=== PATIENT | female | born 1955 | race Caucasian/White ===

== ENCOUNTER 2016-06-13 18:05 | Inpatient (IN) | payer MEDICAID ==
[~2016-06-13] VITALS: Ht 170.2 cm; Wt 105.2 kg
[~2016-06-13 18:05] MED LIST: ASPI-231 PO; ATO40T PO; BENA10TA3 PO; BUME1TAB PO; Cholecalciferol PO; FAMO40TA49 PO; SPIR25TA89 PO; TORSEMIDE PO
[2016-06-13 18:54] LABS: Basophils # (auto) 0 uL; Basophils % (auto) 0.5 % (0.0-2.0); Eosinophils # (auto) 0.1 uL; Hematocrit 30.7 % (36.0-46.0); Hemoglobin 9.5 g/dL (12.2-16.2); Lymphocytes # (auto) 0.7 uL; Lymphocytes % (auto) 14.2 % (10.0-50.0); Mean Corpuscular Hemoglobin 30.8 pg (28.0-32.0); Mean Corpuscular Volume 99.3 fL (80.0-100.0); Mean Platelet Volume 8.3 fL (7.4-10.4); Monocytes # (auto) 0.4 uL; Monocytes % (auto) 7.1 % (0.0-12.0); Neutrophils % (auto) 77.2 % (37.0-80.0); Platelet Count (auto) 137 10^3/uL (140-450); Red Cell Distribution Width 18.2 % (11.6-16.0); White Blood Cell 5.2 10^3/uL (4.4-10.8)
[2016-06-13 20:44] LABS: Potassium 3.8 mmol/L (3.5-5.1)
[2016-06-13 20:51] LABS: Albumin 3.6 g/dL (3.4-5.0); BUN/Creatinine Ratio 16.9; Calcium 8.8 mg/dL (8.5-10.1)
[2016-06-13 20:54] LABS: Bilirubin, Total 0.9 mg/dL (0.2-1.0); Total Protein 7.9 g/dL (6.4-8.2)
[2016-06-13] MEDS ORDERED: ALBUTEROL SULF 2.5 MG/0.5ML(0.5%) NEB SOLN NEB ONE (21:15)
[2016-06-13] MEDS ORDERED: LEVOFLOXACIN 500MG 100 ML IV ONE (21:15)
[2016-06-13] MEDS ORDERED: PANTOPRAZOLE SODIUM 40 MG/10 ML VIAL IV ONE (21:15)
[2016-06-13] MEDS ORDERED: IPRATROPIUM BROM 0.5 MG/2.5ML INH SOL NEB ONE (21:15)
[2016-06-13] MEDS ORDERED: methylPREDNISolone SOD SUCC 125 MG/2 ML VL IV ONE (21:15)
[2016-06-13] MEDS ORDERED: ONDANSETRON HCL 4 MG/2 ML VIAL IV ONE (21:15)
[2016-06-13] MEDS ORDERED: FUROSEMIDE 40 MG/4 ML VIAL IV ONE (21:15)
[2016-06-13] MEDS ORDERED: MORPHINE SULFATE 4 MG/ML SYRG IM ONE (21:15)
[2016-06-13] MEDS ORDERED: MORPHINE SULFATE 4 MG/ML SYRG IV ONE (21:45)
[2016-06-13 22:25] LABS: Amylase 67 U/L (25-115)
[2016-06-13 22:34] LABS: B-Type Natriuretic Peptide 2735.79 pg/mL (0-100); Temperature: 22.5 C (20.0-25.0)
[2016-06-14] VITALS (8 sets, daily range): BP systolic 82–116; BP diastolic 42–82
[2016-06-14] MEDS ORDERED: DEXTROSE (50%) 50ML SYRG IV PRN (01:45)
[2016-06-14] MEDS ORDERED: ENOXAPARIN SOD 100 MG/1 ML SYRINGE SC ONE (01:45)
[2016-06-14] MEDS ORDERED: ONDANSETRON HCL 4 MG/2 ML VIAL IV PRN (01:45)
[2016-06-14] MEDS ORDERED: MORPHINE SULF INJ 2 MG/ML SYRINGE 1ML IV PRN (01:45)
[2016-06-14] MEDS ORDERED: NITROGLYCERIN 0.4 MG SL TAB SL PRN (01:45)
[2016-06-14] MEDS ORDERED: ALBUTEROL SULF 2.5 MG/0.5ML(0.5%) NEB SOLN NEB PRN (01:45)
[2016-06-14] MEDS ORDERED: IPRATROPIUM BROM 0.5 MG/2.5ML INH SOL NEB PRN (01:45)
[2016-06-14] MEDS ORDERED: TEMAZEPAM 15 MG CAP PO PRN (01:45)
[2016-06-14] MEDS: ACCU-CHEK COMFORT CURVE STRIP VI SCH ×3 (05:55→17:57)
[2016-06-14] MEDS ORDERED: BUMETANIDE 1 MG TAB PO SCH (06:00)
[2016-06-14] MEDS: InsuLIN REG 1unit/0.01ml Soln (100units/ml) SC SCH ×3 (06:07→17:58)
[2016-06-14] MEDS ORDERED: FUROSEMIDE INJECTION 500 MG in D5W 5% 450 ML IV SCH (08:30)
[2016-06-14] MEDS: DOBUTamine 1000MCG/ML 250 ML IV SCH ×2 (09:55→18:31)
[2016-06-14] MEDS: SPIRONOLACTONE 25 MG TAB PO SCH (09:56)
[2016-06-14] MEDS: ASPirin 81 mg TAB PO SCH (09:56)
[2016-06-14] MEDS: FAMOTIDINE 20 MG TAB PO SCH ×2 (09:57→22:45)
[2016-06-14] MEDS ORDERED: BENAZEPRIL HCL 10 MG TAB PO SCH (10:00)
[2016-06-14] MEDS ORDERED: ENOXAPARIN SOD 40 MG/0.4 ML SYRINGE SC SCH (10:00)
[2016-06-14] MEDS ORDERED: HYDROmorphone HCL 2 MG/ML VL IV PRN (11:15)
[2016-06-14 12:05] LABS: Urine RBC None Seen /hpf (0 - 4)
[2016-06-14 12:38] LABS: Urine Bilirubin Negative (Negative); Urine Blood Negative /uL (Negative); Urine Color Yellow (Yellow); Urine Glucose Normal (Normal); Urine Ketone Negative (Negative); Urine Nitrite Negative (Negative); Urine Urobilinogen Normal (Negative)
[2016-06-14 15:41] LABS: Partial Thromboplastin Time 27.5 sec (22.64-33.71)
[2016-06-14 15:53] LABS: INR 1.36 (0.9-1.15)
[2016-06-14] MEDS ORDERED: diphenhdrAMINE HCL 50 MG/1 ML VL IV ONE (16:45)
[2016-06-14] MEDS: ATORVASTATIN 20 MG TAB PO SCH (22:14)
[2016-06-14] MEDS: LEVOFLOXACIN 250MG 50 ML IV SCH (22:14)
[2016-06-15] MEDS: ACCU-CHEK COMFORT CURVE STRIP VI SCH ×4 (00:01→18:02)
[2016-06-15] MEDS: InsuLIN REG 1unit/0.01ml Soln (100units/ml) SC SCH ×4 (00:10→18:00)
[2016-06-15] MEDS: DOBUTamine 1000MCG/ML 250 ML IV SCH ×2 (04:59→13:33)
[2016-06-15 05:30] VITALS: BP 126/58
[2016-06-15 06:15] LABS: Basophils # (auto) 0 uL; DEFINITIVE VIEW TRANSMISSION; Eosinophils # (auto) 0 uL; Eosinophils % (auto) 0.1 % (0.0-7.0); Hematocrit 23.9 % (36.0-46.0); Hemoglobin 7.4 g/dL (12.2-16.2); Lymphocytes # (auto) 0.4 uL; Lymphocytes % (auto) 6.2 % (10.0-50.0); Mean Corpuscular Hemoglobin 30.7 pg (28.0-32.0); Mean Corpuscular Volume 99.1 fL (80.0-100.0); Monocytes # (auto) 0.5 uL; Monocytes % (auto) 8.5 % (0.0-12.0); Neutrophils # (auto) 4.9 uL; Neutrophils % (auto) 85.2 % (37.0-80.0); Platelet Count (auto) 117 10^3/uL (140-450); Red Cell Distribution Width 18.1 % (11.6-16.0); White Blood Cell 5.7 10^3/uL (4.4-10.8)
[2016-06-15 06:30] LABS: Albumin 3.1 g/dL (3.4-5.0); BUN/Creatinine Ratio 20.6; Bilirubin, Total 0.5 mg/dL (0.2-1.0); Calcium 8.1 mg/dL (8.5-10.1); Phosphorus 3.8 mg/dL (2.5-4.90); Potassium 4.7 mmol/L (3.5-5.1); Total Protein 6.8 g/dL (6.4-8.2)
[2016-06-15 08:00] VITALS: BP 100/45
[2016-06-15] MEDS: FAMOTIDINE 20 MG TAB PO SCH ×2 (09:22→23:20)
[2016-06-15] MEDS: FUROSEMIDE INJECTION 250 MG in D5W 5% 225 ML IV SCH (09:23)
[2016-06-15 09:30] VITALS: BP 100/45
[2016-06-15] MEDS: ASPirin 81 mg TAB PO SCH (10:00)
[2016-06-15] MEDS ORDERED: ENOXAPARIN SOD 30 MG/0.3 ML SYRINGE SC SCH (10:00)
[2016-06-15] MEDS: SPIRONOLACTONE 25 MG TAB PO SCH (10:00)
[2016-06-15 10:54] LABS: Temperature: 22.3 C (20.0-25.0)
[2016-06-15 13:00] VITALS: BP 106/61
[2016-06-15 13:18] LABS: Hepatitis B Surface Antibody Negative
[2016-06-15 14:02] LABS: Body Fluid Polymorphonuclear 10 %
[2016-06-15 16:54] VITALS: BP 89/52
[2016-06-15] MEDS ORDERED: MORPHINE SULF INJ 2 MG/ML SYRINGE 1ML IV PRN (17:45)
[2016-06-15 20:05] VITALS: BP 100/52
[2016-06-15] MEDS: LEVOFLOXACIN 250MG 50 ML IV SCH (23:12)
[2016-06-15] MEDS: ATORVASTATIN 20 MG TAB PO SCH (23:19)
[2016-06-16] VITALS (11 sets, daily range): BP systolic 88–111; BP diastolic 46–62
[2016-06-16] MEDS: InsuLIN REG 1unit/0.01ml Soln (100units/ml) SC SCH ×4 (00:30→16:39)
[2016-06-16] MEDS: ACCU-CHEK COMFORT CURVE STRIP VI SCH ×4 (00:30→16:39)
[2016-06-16] MEDS: DOBUTamine 1000MCG/ML 250 ML IV SCH ×3 (00:53→18:24)
[2016-06-16 06:35] LABS: Basophils # (auto) 0 uL; Basophils % (auto) 0.2 % (0.0-2.0); DEFINITIVE VIEW TRANSMISSION; Eosinophils # (auto) 0.1 uL; Hematocrit 23.5 % (36.0-46.0); Hemoglobin 7.2 g/dL (12.2-16.2); Lymphocytes # (auto) 0.5 uL; Lymphocytes % (auto) 13.4 % (10.0-50.0); Mean Corpuscular Hemoglobin 30.5 pg (28.0-32.0); Mean Corpuscular Hgb Conc. 30.8 g/dL (32.0-36.0); Mean Corpuscular Volume 99.2 fL (80.0-100.0); Mean Platelet Volume 7.9 fL (7.4-10.4); Monocytes # (auto) 0.3 uL; Neutrophils # (auto) 2.5 uL; Neutrophils % (auto) 73.4 % (37.0-80.0); Platelet Count (auto) 109 10^3/uL (140-450); White Blood Cell 3.5 10^3/uL (4.4-10.8)
[2016-06-16 06:55] LABS: Albumin 2.9 g/dL (3.4-5.0); BUN/Creatinine Ratio 21.1; Bilirubin, Total 0.4 mg/dL (0.2-1.0); Calcium 7.6 mg/dL (8.5-10.1); Potassium 4.7 mmol/L (3.5-5.1); Total Protein 6.1 g/dL (6.4-8.2)
[2016-06-16] MEDS: FUROSEMIDE INJECTION 250 MG in D5W 5% 225 ML IV SCH (09:16)
[2016-06-16] MEDS: SPIRONOLACTONE 25 MG TAB PO SCH (09:20)
[2016-06-16] MEDS: ASPirin 81 mg TAB PO SCH (09:20)
[2016-06-16] MEDS: FAMOTIDINE 20 MG TAB PO SCH ×2 (09:21→22:26)
[2016-06-16] MEDS: ENOXAPARIN SOD 40 MG/0.4 ML SYRINGE SC SCH (09:22)
[2016-06-16 22:12] LABS: Sjogren's Anti-SS-A Antibody <0.2 AI (0.0-0.9)
[2016-06-16] MEDS: LEVOFLOXACIN 250MG 50 ML IV SCH (22:26)
[2016-06-16] MEDS: ATORVASTATIN 20 MG TAB PO SCH (22:26)
[2016-06-17] MEDS: ACCU-CHEK COMFORT CURVE STRIP VI SCH ×3 (00:29→12:19)
[2016-06-17] MEDS: DOBUTamine 1000MCG/ML 250 ML IV SCH ×2 (00:31→12:19)
[2016-06-17 05:00] VITALS: BP 127/73
[2016-06-17] MEDS: InsuLIN REG 1unit/0.01ml Soln (100units/ml) SC SCH ×3 (06:00→12:00)
[2016-06-17 07:20] LABS: Basophils # (auto) 0 uL; Basophils % (auto) 0.1 % (0.0-2.0); DEFINITIVE VIEW TRANSMISSION; Eosinophils # (auto) 0.1 uL; Eosinophils % (auto) 3.2 % (0.0-7.0); Hematocrit 26.7 % (36.0-46.0); Hemoglobin 8.1 g/dL (12.2-16.2); Lymphocytes # (auto) 0.4 uL; Lymphocytes % (auto) 11.8 % (10.0-50.0); Mean Corpuscular Hemoglobin 29.8 pg (28.0-32.0); Mean Corpuscular Hgb Conc. 30.2 g/dL (32.0-36.0); Mean Corpuscular Volume 98.7 fL (80.0-100.0); Monocytes # (auto) 0.4 uL; Monocytes % (auto) 10.5 % (0.0-12.0); Neutrophils # (auto) 2.8 uL; Neutrophils % (auto) 74.4 % (37.0-80.0); Platelet Count (auto) 96 10^3/uL (140-450); Red Cell Distribution Width 18.1 % (11.6-16.0); White Blood Cell 3.7 10^3/uL (4.4-10.8)
[2016-06-17 08:00] VITALS: BP 120/56
[2016-06-17 08:31] LABS: Albumin 3.1 g/dL (3.4-5.0); BUN/Creatinine Ratio 19.2; Bilirubin, Total 0.5 mg/dL (0.2-1.0); Calcium 8.1 mg/dL (8.5-10.1); Potassium 4.9 mmol/L (3.5-5.1); Total Protein 6.4 g/dL (6.4-8.2)
[2016-06-17] MEDS: FUROSEMIDE INJECTION 250 MG in D5W 5% 225 ML IV SCH (08:34)
[2016-06-17] MEDS: ASPirin 81 mg TAB PO SCH (08:34)
[2016-06-17] MEDS: FAMOTIDINE 20 MG TAB PO SCH (08:34)
[2016-06-17] MEDS: SPIRONOLACTONE 25 MG TAB PO SCH (08:35)
[2016-06-17] MEDS: ENOXAPARIN SOD 40 MG/0.4 ML SYRINGE SC SCH (08:46)
[2016-06-17 10:59] VITALS: BP 120/56
[2016-06-18 06:07] LABS: Vitamin D 25-Hydroxy 12 ng/mL (.); Vitamin D-2 25-Hydroxy <1.0 ng/mL (.)
== END 2016-06-17 14:12 | disposition home or self-care (01) | DRG 194 ==
LOC: EDBD 18:05 → ER 18:09 → TELE-CENTR 18:10
PROVIDERS: ADMIT Nurse Practitioner; ATTEND Internal Medicine
PROC: 0W9G30Z Drainage of Peritoneal Cavity with Drainage Device, Percutaneous Approach (ICD-10-PCS; principal; 2016-06-15)
PROC: 30233N1 Transfusion of Nonautologous Red Blood Cells into Peripheral Vein, Percutaneous Approach (ICD-10-PCS; 2016-06-16)
DX: I13.0 Hypertensive heart and chronic kidney disease with heart failure and stage 1 through stage 4 chronic kidney disease, or unspecified chronic kidney disease (principal); N17.0 Acute kidney failure with tubular necrosis; K85.00 Idiopathic acute pancreatitis without necrosis or infection; R18.8 Other ascites; N18.4 Chronic kidney disease, stage 4 (severe); I42.0 Dilated cardiomyopathy; E11.22 Type 2 diabetes mellitus with diabetic chronic kidney disease; J44.0 Chronic obstructive pulmonary disease with (acute) lower respiratory infection; I50.43 Acute on chronic combined systolic (congestive) and diastolic (congestive) heart failure; E11.319 Type 2 diabetes mellitus with unspecified diabetic retinopathy without macular edema; G40.909 Epilepsy, unspecified, not intractable, without status epilepticus; H54.8 Legal blindness, as defined in USA; D63.8 Anemia in other chronic diseases classified elsewhere; J20.9 Acute bronchitis, unspecified; J44.1 Chronic obstructive pulmonary disease with (acute) exacerbation; K72.90 Hepatic failure, unspecified without coma; M47.9 Spondylosis, unspecified; Z82.49 Family history of ischemic heart disease and other diseases of the circulatory system; Z83.3 Family history of diabetes mellitus; Z95.0 Presence of cardiac pacemaker; Z95.810 Presence of automatic (implantable) cardiac defibrillator; Z88.5 Allergy status to narcotic agent; Z88.0 Allergy status to penicillin; Z88.2 Allergy status to sulfonamides; Z88.8 Allergy status to other drugs, medicaments and biological substances; Z91.041 Radiographic dye allergy status
CPT/HCPCS: 36415; 71010; 71250; 74176; 76775; 76942; 78582; 80053; 81001; 82150; 82306; 82570; 82607; 82728; 82746; 82962; 83516; 83540; 83550; 83615; 83690; 83735; 83880; 83970; 83986; 84100; 84156; 84300; 84484; 84550; 85025; 85379; 85610; 85730; 86225; 86235; 86704; 86706; 86708; 86803; 86850; 86900; 86901; 86920; 87040; 87205; 87340; 89051; 93005; 93306; 93970; 94640; 96365; 96375; 99291; C9113; J1815; J1956; J2405; J7060

== ENCOUNTER 2016-06-24 21:32 | Inpatient (IN) | payer MEDICAID ==
[~2016-06-24] VITALS: Ht 167.6 cm; Wt 90.9 kg
[2016-06-24 22:23] LABS: Albumin 3.7 g/dL (3.4-5.0); BUN/Creatinine Ratio 20.2; Calcium 8.9 mg/dL (8.5-10.1); Magnesium 2.2 mg/dL (1.6-2.6); Potassium 5.1 mmol/L (3.5-5.1)
[2016-06-24 22:28] LABS: Bilirubin, Total 1.1 mg/dL (0.2-1.0)
[2016-06-24 22:38] LABS: Basophils # (auto) 0 uL; Basophils % (auto) 0.2 % (0.0-2.0); Eosinophils # (auto) 0 uL; Eosinophils % (auto) 0.6 % (0.0-7.0); Hematocrit 35.6 % (36.0-46.0); Hemoglobin 10.9 g/dL (12.2-16.2); Lymphocytes # (auto) 0.6 uL; Lymphocytes % (auto) 9.1 % (10.0-50.0); Mean Corpuscular Hemoglobin 29.6 pg (28.0-32.0); Mean Corpuscular Hgb Conc. 30.6 g/dL (32.0-36.0); Mean Corpuscular Volume 96.5 fL (80.0-100.0); Mean Platelet Volume 9.3 fL (7.4-10.4); Monocytes # (auto) 0.5 uL; Monocytes % (auto) 7.4 % (0.0-12.0); Neutrophils # (auto) 5.5 uL; Neutrophils % (auto) 82.7 % (37.0-80.0); Platelet Count (auto) 141 10^3/uL (140-450); Red Cell Distribution Width 17.6 % (11.6-16.0); White Blood Cell 6.7 10^3/uL (4.4-10.8)
[2016-06-25 00:15] LABS: Partial Thromboplastin Time 26.8 sec (22.64-33.71)
[2016-06-25 00:22] LABS: INR 1.34 (0.9-1.15); Prothrombin Time 13.8 sec (9.37-12.3)
[2016-06-25 00:23] LABS: B-Type Natriuretic Peptide 4260.12 pg/mL (0-100); Temperature: 22.9 C (20.0-25.0)
[2016-06-25] MEDS ORDERED: LACTULOSE 20Gm/30ML SOLN PO PRN (01:15)
[2016-06-25] MEDS ORDERED: NITROGLYCERIN 0.4 MG SL TAB SL PRN (01:15)
[2016-06-25] MEDS ORDERED: FUROSEMIDE 20 MG/2 ML VIAL IV ONE (01:15)
[2016-06-25] MEDS ORDERED: ASPirin 81 mg TAB PO ONE (01:15)
[2016-06-25] MEDS ORDERED: PANTOPRAZOLE SODIUM 40 MG/10 ML VIAL IV ONE (01:15)
[2016-06-25] MEDS ORDERED: LEVOFLOXACIN 250MG 50 ML IV ONE (01:15)
[2016-06-25] MEDS ORDERED: DEXTROSE (50%) 50ML SYRG IV PRN (01:30)
[2016-06-25] MEDS ORDERED: ENOXAPARIN SOD 80 MG/0.8ML SYRINGE SC ONE (02:30)
[2016-06-25] MEDS: ALBUTEROL SULF 2.5 MG/0.5ML(0.5%) NEB SOLN NEB SCH ×6 (02:37→23:10)
[2016-06-25] MEDS: IPRATROPIUM BROM 0.5 MG/2.5ML INH SOL NEB SCH ×6 (02:37→23:10)
[2016-06-25] MEDS ORDERED: AZITHROMYCIN 500MG/D5W 250ML 250 ML IV SCH (03:00)
[2016-06-25] MEDS: MORPHINE SULF INJ 2 MG/ML SYRINGE 1ML IV PRN ×2 (03:12→18:01)
[2016-06-25 03:36] VITALS: BP 133/86
[2016-06-25] MEDS: ACCU-CHEK COMFORT CURVE STRIP VI SCH ×3 (06:00→18:02)
[2016-06-25] MEDS: InsuLIN REG 1unit/0.01ml Soln (100units/ml) SC SCH ×3 (06:00→18:00)
[2016-06-25] MEDS: SODIUM CHLOR 0.9% PF (SALINE LOCK) 10ML VIAL IV SCH ×3 (06:03→22:35)
[2016-06-25 07:12] LABS: Basophils # (auto) 0 uL; Basophils % (auto) 0.3 % (0.0-2.0); Eosinophils # (auto) 0 uL; Eosinophils % (auto) 0.8 % (0.0-7.0); Hemoglobin 9.6 g/dL (12.2-16.2); Lymphocytes % (auto) 17.4 % (10.0-50.0); Mean Corpuscular Hemoglobin 29.6 pg (28.0-32.0); Mean Corpuscular Hgb Conc. 31.1 g/dL (32.0-36.0); Mean Corpuscular Volume 95.2 fL (80.0-100.0); Mean Platelet Volume 9.2 fL (7.4-10.4); Monocytes # (auto) 0.5 uL; Monocytes % (auto) 8.4 % (0.0-12.0); Neutrophils # (auto) 4.2 uL; Neutrophils % (auto) 73.1 % (37.0-80.0); Platelet Count (auto) 127 10^3/uL (140-450); Red Cell Distribution Width 17.4 % (11.6-16.0); White Blood Cell 5.8 10^3/uL (4.4-10.8)
[2016-06-25 07:48] LABS: Albumin 3.3 g/dL (3.4-5.0); BUN/Creatinine Ratio 21.2; Calcium 8.6 mg/dL (8.5-10.1); Total Protein 7.3 g/dL (6.4-8.2)
[2016-06-25] MEDS: FERROUS SULFATE 325 MG TAB PO SCH ×2 (08:16→18:00)
[2016-06-25] MEDS: PANTOPRAZOLE SODIUM 40 MG/10 ML VIAL IV SCH (10:32)
[2016-06-25] MEDS: FUROSEMIDE 40 MG/4 ML VIAL IV SCH (10:32)
[2016-06-25] MEDS: ASPirin 81 mg TAB PO SCH (10:33)
[2016-06-25] MEDS: METOPROLOL TARTRATE 25 MG TAB PO SCH ×4 (10:33→22:24)
[2016-06-25] MEDS: ENALAPRIL MALEATE 10 MG TAB PO SCH (10:33)
[2016-06-25] MEDS: ENOXAPARIN SOD 80 MG/0.8ML SYRINGE SC SCH ×2 (11:34→22:24)
[2016-06-25] MEDS ORDERED: DIGOXIN 0.125 MG TAB PO ONE (14:40)
[2016-06-25 17:30] VITALS: BP 103/68
[2016-06-25] MEDS: ONDANSETRON HCL 4 MG/2 ML VIAL IV PRN (18:00)
[2016-06-25 21:58] VITALS: BP 111/60
[2016-06-25] MEDS: ATORVASTATIN 20 MG TAB PO SCH (22:23)
[2016-06-26] MEDS: ALBUTEROL SULF 2.5 MG/0.5ML(0.5%) NEB SOLN NEB SCH ×5 (02:00→22:48)
[2016-06-26] MEDS: IPRATROPIUM BROM 0.5 MG/2.5ML INH SOL NEB SCH ×5 (02:00→22:48)
[2016-06-26 05:00] VITALS: BP 93/57
[2016-06-26] MEDS: LEVOFLOXACIN 250MG 50 ML IV SCH (05:55)
[2016-06-26] MEDS: SODIUM CHLOR 0.9% PF (SALINE LOCK) 10ML VIAL IV SCH ×3 (05:56→22:00)
[2016-06-26] MEDS: InsuLIN REG 1unit/0.01ml Soln (100units/ml) SC SCH ×5 (06:00→23:42)
[2016-06-26] MEDS: ACCU-CHEK COMFORT CURVE STRIP VI SCH ×5 (06:09→23:42)
[2016-06-26 06:16] LABS: Basophils # (auto) 0 uL; Basophils % (auto) 0.7 % (0.0-2.0); Eosinophils # (auto) 0.1 uL; Eosinophils % (auto) 1.7 % (0.0-7.0); Hematocrit 29.3 % (36.0-46.0); Hemoglobin 9.4 g/dL (12.2-16.2); Lymphocytes # (auto) 0.7 uL; Lymphocytes % (auto) 17.6 % (10.0-50.0); Mean Corpuscular Volume 96.9 fL (80.0-100.0); Mean Platelet Volume 9.2 fL (7.4-10.4); Monocytes # (auto) 0.4 uL; Monocytes % (auto) 10.4 % (0.0-12.0); Neutrophils # (auto) 2.6 uL; Neutrophils % (auto) 69.6 % (37.0-80.0); Platelet Count (auto) 122 10^3/uL (140-450); Red Cell Distribution Width 16.7 % (11.6-16.0); White Blood Cell 3.8 10^3/uL (4.4-10.8)
[2016-06-26 06:27] LABS: Calcium 8.2 mg/dL (8.5-10.1); Potassium 5.2 mmol/L (3.5-5.1)
[2016-06-26 06:30] LABS: BUN/Creatinine Ratio 20.8
[2016-06-26 06:32] LABS: Bilirubin, Total 0.6 mg/dL (0.2-1.0); Total Protein 6.6 g/dL (6.4-8.2)
[2016-06-26 06:35] LABS: Cholesterol 74 mg/dL (<200); HDL Cholesterol 34 mg/dL (40-59); LDL Cholesterol 41 mg/dL (<100); Triglycerides 37 mg/dL (<150)
[2016-06-26 09:00] VITALS: BP 91/58
[2016-06-26] MEDS: ENALAPRIL MALEATE 10 MG TAB PO SCH (10:00)
[2016-06-26] MEDS ORDERED: DIGOXIN 0.125 MG TAB PO SCH (10:00)
[2016-06-26] MEDS: ENOXAPARIN SOD 80 MG/0.8ML SYRINGE SC SCH ×2 (10:00→21:53)
[2016-06-26] MEDS: FUROSEMIDE 40 MG/4 ML VIAL IV SCH (10:00)
[2016-06-26] MEDS: PANTOPRAZOLE SODIUM 40 MG/10 ML VIAL IV SCH (10:58)
[2016-06-26] MEDS: AZITHROMYCIN 500MG/D5W 250ML 250 ML IV SCH (10:59)
[2016-06-26] MEDS: ASPirin 81 mg TAB PO SCH (11:00)
[2016-06-26] MEDS: FERROUS SULFATE 325 MG TAB PO SCH ×2 (11:00→18:00)
[2016-06-26] MEDS: diphenhdrAMINE HCL 50 MG/1 ML VL IV PRN (12:28)
[2016-06-26 13:00] VITALS: BP 100/53
[2016-06-26] MEDS: ONDANSETRON HCL 4 MG/2 ML VIAL IV PRN (13:44)
[2016-06-26 17:26] VITALS: BP 128/67
[2016-06-26] MEDS: MORPHINE SULF INJ 2 MG/ML SYRINGE 1ML IV PRN (21:16)
[2016-06-26 21:35] VITALS: BP 93/54
[2016-06-26] MEDS: ATORVASTATIN 20 MG TAB PO SCH (21:53)
[2016-06-27] MEDS: MORPHINE SULF INJ 2 MG/ML SYRINGE 1ML IV PRN (02:59)
[2016-06-27 04:39] VITALS: BP 106/67
[2016-06-27] MEDS: ALBUTEROL SULF 2.5 MG/0.5ML(0.5%) NEB SOLN NEB SCH ×3 (05:55→13:45)
[2016-06-27] MEDS: IPRATROPIUM BROM 0.5 MG/2.5ML INH SOL NEB SCH ×3 (05:55→13:45)
[2016-06-27] MEDS: InsuLIN REG 1unit/0.01ml Soln (100units/ml) SC SCH ×2 (06:00→12:00)
[2016-06-27] MEDS: ACCU-CHEK COMFORT CURVE STRIP VI SCH ×2 (06:00→12:00)
[2016-06-27] MEDS: LEVOFLOXACIN 250MG 50 ML IV SCH (06:34)
[2016-06-27] MEDS: SODIUM CHLOR 0.9% PF (SALINE LOCK) 10ML VIAL IV SCH ×2 (06:34→14:00)
[2016-06-27 06:37] LABS: Basophils # (auto) 0 uL; Basophils % (auto) 0.2 % (0.0-2.0); Eosinophils # (auto) 0.1 uL; Eosinophils % (auto) 1.3 % (0.0-7.0); Hematocrit 29.5 % (36.0-46.0); Lymphocytes # (auto) 0.6 uL; Lymphocytes % (auto) 11.8 % (10.0-50.0); Mean Corpuscular Hemoglobin 29.5 pg (28.0-32.0); Mean Corpuscular Hgb Conc. 30.4 g/dL (32.0-36.0); Mean Corpuscular Volume 96.9 fL (80.0-100.0); Mean Platelet Volume 8.9 fL (7.4-10.4); Monocytes # (auto) 0.4 uL; Monocytes % (auto) 7.4 % (0.0-12.0); Neutrophils # (auto) 3.9 uL; Neutrophils % (auto) 79.3 % (37.0-80.0); Platelet Count (auto) 135 10^3/uL (140-450); Red Cell Distribution Width 17.4 % (11.6-16.0); White Blood Cell 4.9 10^3/uL (4.4-10.8)
[2016-06-27 06:59] LABS: Albumin 3.3 g/dL (3.4-5.0); BUN/Creatinine Ratio 20.7; Bilirubin, Total 0.6 mg/dL (0.2-1.0); Calcium 8.1 mg/dL (8.5-10.1); Potassium 4.7 mmol/L (3.5-5.1); Total Protein 7.2 g/dL (6.4-8.2)
[2016-06-27] MEDS: FERROUS SULFATE 325 MG TAB PO SCH (08:00)
[2016-06-27 09:00] VITALS: BP 99/61
[2016-06-27] MEDS ORDERED: METOPROLOL SUCCINATE XL 50 MG TAB PO SCH (10:00)
[2016-06-27] MEDS: ENOXAPARIN SOD 80 MG/0.8ML SYRINGE SC SCH (10:00)
[2016-06-27] MEDS: ASPirin 81 mg TAB PO SCH (10:00)
[2016-06-27] MEDS: AZITHROMYCIN 500MG/D5W 250ML 250 ML IV SCH (10:00)
[2016-06-27] MEDS: PANTOPRAZOLE SODIUM 40 MG/10 ML VIAL IV SCH (10:00)
[2016-06-27] MEDS: FUROSEMIDE 40 MG/4 ML VIAL IV SCH (10:00)
[2016-06-27] MEDS: diphenhdrAMINE HCL 50 MG/1 ML VL IV PRN (11:28)
[2016-06-27 13:00] VITALS: BP 107/65
[2016-06-27 16:54] VITALS: BP 102/55
== END 2016-06-27 18:42 | disposition home or self-care (01) | DRG 194 ==
LOC: EDSEX 21:32 → EDBD 21:32 → ER 21:39 → TELE 21:40 → TELE-E-ADS 06-25 16:36 → TELE-WESTW 06-25 17:41
PROVIDERS: ADMIT Family Medicine; ATTEND Internal Medicine
PROC: 0W9B3ZZ Drainage of Left Pleural Cavity, Percutaneous Approach (ICD-10-PCS; principal; 2016-06-25)
DX: I13.0 Hypertensive heart and chronic kidney disease with heart failure and stage 1 through stage 4 chronic kidney disease, or unspecified chronic kidney disease (principal); J18.9 Pneumonia, unspecified organism; J96.10 Chronic respiratory failure, unspecified whether with hypoxia or hypercapnia; N17.9 Acute kidney failure, unspecified; E44.0 Moderate protein-calorie malnutrition; E11.22 Type 2 diabetes mellitus with diabetic chronic kidney disease; N18.3 Chronic kidney disease, stage 3 (moderate); J90 Pleural effusion, not elsewhere classified; I50.9 Heart failure, unspecified; J44.0 Chronic obstructive pulmonary disease with (acute) lower respiratory infection; H54.8 Legal blindness, as defined in USA; D64.9 Anemia, unspecified; E78.00 Pure hypercholesterolemia, unspecified; J44.1 Chronic obstructive pulmonary disease with (acute) exacerbation; E78.5 Hyperlipidemia, unspecified; E87.5 Hyperkalemia; K76.9 Liver disease, unspecified; I25.5 Ischemic cardiomyopathy; Z88.5 Allergy status to narcotic agent; Z88.0 Allergy status to penicillin; Z88.2 Allergy status to sulfonamides; Z88.8 Allergy status to other drugs, medicaments and biological substances; Z91.048 Other nonmedicinal substance allergy status; Z86.73 Personal history of transient ischemic attack (TIA), and cerebral infarction without residual deficits; Z95.0 Presence of cardiac pacemaker; Z91.19 Patient's noncompliance with other medical treatment and regimen; Z68.32 Body mass index [BMI] 32.0-32.9, adult; Z91.041 Radiographic dye allergy status; Z79.82 Long term (current) use of aspirin
CPT/HCPCS: 36415; 51702; 71010; 71250; 76604; 76942; 80053; 80061; 82140; 82962; 83036; 83735; 83880; 84484; 85025; 85379; 85610; 85730; 87040; 93005; 93970; 94640; 96365; 96367; 96372; 96375; C9113; J2405

== ENCOUNTER 2016-08-01 17:55 | Inpatient (IN) | payer MEDICAID ==
[~2016-08-01] VITALS: Ht 170.2 cm; Wt 98.1 kg
[~2016-08-01 17:55] MED LIST changes: -Cholecalciferol PO; -FAMO40TA49 PO; -TORSEMIDE PO
[2016-08-01 19:14] LABS: Basophils # (auto) 0 uL; Basophils % (auto) 0.1 % (0.0-2.0); Eosinophils # (auto) 0.1 uL; Eosinophils % (auto) 2.1 % (0.0-7.0); Hematocrit 27.7 % (36.0-46.0); Hemoglobin 8.9 g/dL (12.2-16.2); Lymphocytes # (auto) 0.4 uL; Lymphocytes % (auto) 13.8 % (10.0-50.0); Mean Corpuscular Hemoglobin 31.1 pg (28.0-32.0); Mean Corpuscular Hgb Conc. 32.3 g/dL (32.0-36.0); Mean Corpuscular Volume 96.3 fL (80.0-100.0); Mean Platelet Volume 8.7 fL (7.4-10.4); Monocytes # (auto) 0.3 uL; Monocytes % (auto) 8.2 % (0.0-12.0); Neutrophils # (auto) 2.4 uL; Neutrophils % (auto) 75.8 % (37.0-80.0); Red Cell Distribution Width 18.6 % (11.6-16.0); White Blood Cell 3.1 10^3/uL (4.4-10.8)
[2016-08-01 19:17] LABS: Platelet Count (auto) 86 10^3/uL (140-450)
[2016-08-01 19:28] LABS: BUN/Creatinine Ratio 18.2; Potassium 4.6 mmol/L (3.5-5.1)
[2016-08-01 19:29] LABS: Albumin 3.4 g/dL (3.4-5.0); Calcium 8.1 mg/dL (8.5-10.1); Magnesium 2.3 mg/dL (1.6-2.6)
[2016-08-01 19:33] LABS: Bilirubin, Total 0.8 mg/dL (0.2-1.0); Total Protein 7.5 g/dL (6.4-8.2)
[2016-08-01 20:07] LABS: Anisocytosis Moderate; Ovalocytes FEW; Platelet Estimate Decreased
[2016-08-01] MEDS ORDERED: ALBUTEROL SULF 2.5 MG/0.5ML(0.5%) NEB SOLN NEB ONE (20:45)
[2016-08-01] MEDS ORDERED: methylPREDNISolone SOD SUCC 125 MG/2 ML VL IV ONE (20:45)
[2016-08-01] MEDS ORDERED: IPRATROPIUM BROM 0.5 MG/2.5ML INH SOL NEB ONE (20:45)
[2016-08-01 22:02] LABS: B-Type Natriuretic Peptide 1958.34 pg/mL (0-100); Temperature: 22.7 C (20.0-25.0)
[2016-08-02] MEDS ORDERED: traMADol HCL 50 MG TAB PO ONE (00:45)
[2016-08-02] MEDS ORDERED: ALBUTEROL SULF 2.5 MG/0.5ML(0.5%) NEB SOLN NEB ONE (04:15)
[2016-08-02] MEDS ORDERED: IPRATROPIUM BROM 0.5 MG/2.5ML INH SOL NEB ONE (04:15)
[2016-08-02 04:39] LABS: Urine Bilirubin Negative (Negative); Urine Blood TRACE /uL (Negative); Urine Color Yellow (Yellow); Urine Glucose Normal (Normal); Urine Ketone Negative (Negative); Urine Nitrite Negative (Negative); Urine RBC 1 /hpf (0 - 4); Urine Urobilinogen Normal (Negative); Urine pH 5.5 (5.0-8.0)
[2016-08-02] MEDS ORDERED: NITROGLYCERIN 0.4 MG SL TAB SL PRN (05:00)
[2016-08-02] MEDS ORDERED: ACETAMINOPHEN 325 MG TAB PO PRN (05:00)
[2016-08-02] MEDS ORDERED: FUROSEMIDE 20 MG/2 ML VIAL IV ONE (05:00)
[2016-08-02] MEDS ORDERED: MORPHINE SULF INJ 2 MG/ML SYRINGE 1ML IV PRN (05:00)
[2016-08-02] MEDS ORDERED: TEMAZEPAM 15 MG CAP PO PRN (05:00)
[2016-08-02] MEDS: SODIUM CHLOR 0.9% PF (SALINE LOCK) 10ML VIAL IV SCH ×3 (06:22→21:57)
[2016-08-02] MEDS ORDERED: BENA10TA3 PO (06:27)
[2016-08-02] MEDS ORDERED: ATOR40TA52 PO (06:27)
[2016-08-02] MEDS ORDERED: DIGO0.1262 PO (06:27)
[2016-08-02] MEDS ORDERED: BUME1TAB PO (06:27)
[2016-08-02] MEDS ORDERED: ASPI-231 PO (06:27)
[2016-08-02] MEDS ORDERED: SPIR25TA89 PO (06:27)
[2016-08-02] MEDS ORDERED: [UNRECOGNIZED DRUG - CODE] PO (06:27)
[2016-08-02] MEDS ORDERED: FAM20T PO (06:27)
[2016-08-02] MEDS: ZINC SULFATE 220 MG CAP PO SCH (10:32)
[2016-08-02] MEDS: FAMOTIDINE 20 MG TAB PO SCH ×2 (10:33→21:58)
[2016-08-02] MEDS: ENOXAPARIN SOD 40 MG/0.4 ML SYRINGE SC SCH (10:33)
[2016-08-02] MEDS: ONDANSETRON HCL 4 MG/2 ML VIAL IV PRN (10:33)
[2016-08-02] MEDS: ASCORBIC ACID 500 MG TAB PO SCH ×2 (10:33→21:58)
[2016-08-02] MEDS: MORPHINE SULF INJ 2 MG/ML SYRINGE 1ML IV PRN ×2 (10:33→18:34)
[2016-08-02] MEDS ORDERED: DEXTROSE (50%) 50ML SYRG IV SCH (12:15)
[2016-08-02] MEDS ORDERED: ACCU-CHEK COMFORT CURVE STRIP VI ONE (12:30)
[2016-08-02] MEDS ORDERED: InsuLIN REG 1unit/0.01ml Soln (100units/ml) SC ONE (12:30)
[2016-08-02 14:40] VITALS: BP 103/67
[2016-08-02] MEDS: ACCU-CHEK COMFORT CURVE STRIP VI SCH ×2 (16:45→21:58)
[2016-08-02] MEDS: InsuLIN REG 1unit/0.01ml Soln (100units/ml) SC SCH ×2 (16:46→21:58)
[2016-08-02 17:00] VITALS: BP 103/67
[2016-08-02] MEDS ORDERED: ACCU-CHEK COMFORT CURVE STRIP VI SCH (17:00)
[2016-08-02] MEDS: FUROSEMIDE 20 MG/2 ML VIAL IV SCH (18:00)
[2016-08-02] MEDS: POTASSIUM CHL 20 Meq TABLET PO SCH (21:58)
[2016-08-02 22:00] VITALS: BP 96/72
[2016-08-03] VITALS (7 sets, daily range): BP systolic 90–109; BP diastolic 56–68
[2016-08-03] MEDS: ONDANSETRON HCL 4 MG/2 ML VIAL IV PRN ×2 (02:08→10:24)
[2016-08-03] MEDS: FUROSEMIDE 20 MG/2 ML VIAL IV SCH ×2 (05:06→17:46)
[2016-08-03] MEDS: SODIUM CHLOR 0.9% PF (SALINE LOCK) 10ML VIAL IV SCH ×3 (05:52→21:40)
[2016-08-03 06:07] LABS: Basophils # (auto) 0 uL; DEFINITIVE VIEW TRANSMISSION; Eosinophils # (auto) 0 uL; Hematocrit 31.4 % (36.0-46.0); Hemoglobin 9.8 g/dL (12.2-16.2); Lymphocytes # (auto) 0.7 uL; Mean Corpuscular Hemoglobin 30.8 pg (28.0-32.0); Mean Corpuscular Hgb Conc. 31.2 g/dL (32.0-36.0); Mean Corpuscular Volume 98.7 fL (80.0-100.0); Mean Platelet Volume 8.8 fL (7.4-10.4); Monocytes # (auto) 0.6 uL; Monocytes % (auto) 9.5 % (0.0-12.0); Neutrophils # (auto) 5.2 uL; Neutrophils % (auto) 80.5 % (37.0-80.0); Platelet Count (auto) 142 10^3/uL (140-450); Red Cell Distribution Width 19.6 % (11.6-16.0); White Blood Cell 6.5 10^3/uL (4.4-10.8)
[2016-08-03] MEDS: ACCU-CHEK COMFORT CURVE STRIP VI SCH ×4 (06:13→21:51)
[2016-08-03] MEDS: InsuLIN REG 1unit/0.01ml Soln (100units/ml) SC SCH ×4 (06:13→21:51)
[2016-08-03 07:48] LABS: Albumin 3.8 g/dL (3.4-5.0); BUN/Creatinine Ratio 16.2; Bilirubin, Total 0.9 mg/dL (0.2-1.0); Calcium 8.8 mg/dL (8.5-10.1); Total Protein 8.2 g/dL (6.4-8.2)
[2016-08-03 08:10] LABS: Potassium 6.6 mmol/L (3.5-5.1)
[2016-08-03 08:15] LABS: Anisocytosis Moderate; Platelet Estimate Adequate
[2016-08-03] MEDS: ASCORBIC ACID 500 MG TAB PO SCH ×2 (09:31→21:40)
[2016-08-03] MEDS: ZINC SULFATE 220 MG CAP PO SCH (09:31)
[2016-08-03] MEDS: FAMOTIDINE 20 MG TAB PO SCH (09:31)
[2016-08-03] MEDS: ENOXAPARIN SOD 40 MG/0.4 ML SYRINGE SC SCH (09:31)
[2016-08-03] MEDS: POTASSIUM CHL 20 Meq TABLET PO SCH (09:32)
[2016-08-03] MEDS: MORPHINE SULF INJ 2 MG/ML SYRINGE 1ML IV PRN (10:24)
[2016-08-03 11:58] LABS: Albumin 3.6 g/dL (3.4-5.0); BUN/Creatinine Ratio 16.7; Bilirubin, Total 0.9 mg/dL (0.2-1.0); Calcium 8.6 mg/dL (8.5-10.1); Total Protein 8.1 g/dL (6.4-8.2)
[2016-08-03 12:21] LABS: Potassium 6.6 mmol/L (3.5-5.1)
[2016-08-04] MEDS: ONDANSETRON HCL 4 MG/2 ML VIAL IV PRN (00:54)
[2016-08-04 05:30] VITALS: BP 102/67
[2016-08-04] MEDS: FUROSEMIDE 20 MG/2 ML VIAL IV SCH ×2 (06:06→18:10)
[2016-08-04] MEDS: SODIUM CHLOR 0.9% PF (SALINE LOCK) 10ML VIAL IV SCH ×3 (06:06→21:38)
[2016-08-04] MEDS: ACCU-CHEK COMFORT CURVE STRIP VI SCH ×4 (06:33→21:40)
[2016-08-04] MEDS: InsuLIN REG 1unit/0.01ml Soln (100units/ml) SC SCH ×4 (06:33→21:43)
[2016-08-04 06:36] LABS: Basophils # (auto) 0 uL; Basophils % (auto) 0.3 % (0.0-2.0); DEFINITIVE VIEW TRANSMISSION; Eosinophils # (auto) 0 uL; Eosinophils % (auto) 0.5 % (0.0-7.0); Hematocrit 31.2 % (36.0-46.0); Hemoglobin 9.9 g/dL (12.2-16.2); Lymphocytes # (auto) 0.8 uL; Lymphocytes % (auto) 12.8 % (10.0-50.0); Mean Corpuscular Hgb Conc. 31.9 g/dL (32.0-36.0); Mean Corpuscular Volume 97.2 fL (80.0-100.0); Mean Platelet Volume 8.9 fL (7.4-10.4); Monocytes # (auto) 0.6 uL; Monocytes % (auto) 10.5 % (0.0-12.0); Neutrophils # (auto) 4.5 uL; Neutrophils % (auto) 75.9 % (37.0-80.0); Platelet Count (auto) 121 10^3/uL (140-450); SUSPECT VIEW TRANSMISSION; White Blood Cell 5.9 10^3/uL (4.4-10.8)
[2016-08-04 07:05] LABS: Albumin 3.4 g/dL (3.4-5.0); BUN/Creatinine Ratio 16.1; Bilirubin, Total 0.8 mg/dL (0.2-1.0); Calcium 8.3 mg/dL (8.5-10.1); Total Protein 7.6 g/dL (6.4-8.2)
[2016-08-04 07:08] LABS: Potassium 6.5 mmol/L (3.5-5.1)
[2016-08-04 07:55] VITALS: BP 106/63
[2016-08-04 08:00] VITALS: BP 102/67
[2016-08-04] MEDS: ASCORBIC ACID 500 MG TAB PO SCH ×2 (10:13→21:39)
[2016-08-04] MEDS: ENOXAPARIN SOD 40 MG/0.4 ML SYRINGE SC SCH (10:14)
[2016-08-04] MEDS: FAMOTIDINE 20 MG TAB PO SCH (10:14)
[2016-08-04] MEDS: ZINC SULFATE 220 MG CAP PO SCH (10:14)
[2016-08-04] MEDS ORDERED: SODIUM CHLORIDE 0.9% 1,000 ML IV SCH (10:30)
[2016-08-04 10:46] LABS: Anisocytosis Slight; Platelet Estimate Decreased
[2016-08-04] MEDS: SODIUM POLYSTYRENE SULF 15GM/60ML SUSP PO SCH ×2 (10:48→21:39)
[2016-08-04] MEDS: SODIUM CHLORIDE 0.9% 1,000 ML IV SCH (10:58)
[2016-08-04 11:22] LABS: Partial Thromboplastin Time 28.9 sec (22.64-33.71)
[2016-08-04 11:39] LABS: INR 1.49 (0.9-1.15); Prothrombin Time 16.1 sec (9.37-12.3)
[2016-08-04] MEDS: MORPHINE SULF INJ 2 MG/ML SYRINGE 1ML IV PRN (11:58)
[2016-08-04 16:12] VITALS: BP 113/70
[2016-08-04 20:00] VITALS: BP 110/67
[2016-08-04 22:00] VITALS: BP 110/67
[2016-08-05] VITALS (7 sets, daily range): BP systolic 102–110; BP diastolic 64–68
[2016-08-05] MEDS: ONDANSETRON HCL 4 MG/2 ML VIAL IV PRN ×2 (00:04→10:06)
[2016-08-05] MEDS: SODIUM CHLORIDE 0.9% 1,000 ML IV SCH ×2 (01:27→19:50)
[2016-08-05] MEDS: MORPHINE SULF INJ 2 MG/ML SYRINGE 1ML IV PRN ×3 (04:36→22:18)
[2016-08-05] MEDS: SODIUM CHLOR 0.9% PF (SALINE LOCK) 10ML VIAL IV SCH ×3 (06:18→22:28)
[2016-08-05] MEDS: FUROSEMIDE 20 MG/2 ML VIAL IV SCH ×2 (06:19→18:24)
[2016-08-05] MEDS: ACCU-CHEK COMFORT CURVE STRIP VI SCH ×4 (06:32→21:52)
[2016-08-05] MEDS: InsuLIN REG 1unit/0.01ml Soln (100units/ml) SC SCH ×4 (06:32→21:52)
[2016-08-05 07:05] LABS: BUN/Creatinine Ratio 15.3; Potassium 5.5 mmol/L (3.5-5.1)
[2016-08-05] MEDS: ASCORBIC ACID 500 MG TAB PO SCH ×3 (10:00→21:52)
[2016-08-05] MEDS: ZINC SULFATE 220 MG CAP PO SCH (10:06)
[2016-08-05] MEDS: FAMOTIDINE 20 MG TAB PO SCH (10:06)
[2016-08-05] MEDS: ENOXAPARIN SOD 30 MG/0.3 ML SYRINGE SC SCH (10:06)
[2016-08-05] MEDS: SODIUM BICARBONATE 50ML VIAL 50 ML in SOD CHL 0.45% 1,000 ML IV SCH ×2 (10:06→22:28)
[2016-08-06 05:00] VITALS: BP 116/64
[2016-08-06] MEDS: FUROSEMIDE 20 MG/2 ML VIAL IV SCH ×2 (06:11→19:08)
[2016-08-06] MEDS: SODIUM CHLOR 0.9% PF (SALINE LOCK) 10ML VIAL IV SCH ×3 (06:11→21:44)
[2016-08-06 06:32] LABS: Basophils # (auto) 0 uL; Basophils % (auto) 0.2 % (0.0-2.0); DEFINITIVE VIEW TRANSMISSION; Eosinophils # (auto) 0.1 uL; Eosinophils % (auto) 1.7 % (0.0-7.0); Hematocrit 32.5 % (36.0-46.0); Hemoglobin 10.2 g/dL (12.2-16.2); Lymphocytes # (auto) 0.4 uL; Lymphocytes % (auto) 8.5 % (10.0-50.0); Mean Corpuscular Hemoglobin 30.7 pg (28.0-32.0); Mean Corpuscular Hgb Conc. 31.4 g/dL (32.0-36.0); Mean Corpuscular Volume 97.7 fL (80.0-100.0); Mean Platelet Volume 8.2 fL (7.4-10.4); Monocytes # (auto) 0.3 uL; Monocytes % (auto) 6.9 % (0.0-12.0); Neutrophils # (auto) 3.5 uL; Neutrophils % (auto) 82.7 % (37.0-80.0); Platelet Count (auto) 108 10^3/uL (140-450); Red Cell Distribution Width 19.8 % (11.6-16.0); White Blood Cell 4.2 10^3/uL (4.4-10.8)
[2016-08-06] MEDS: InsuLIN REG 1unit/0.01ml Soln (100units/ml) SC SCH ×4 (06:44→21:45)
[2016-08-06] MEDS: ACCU-CHEK COMFORT CURVE STRIP VI SCH ×4 (06:44→21:45)
[2016-08-06 07:07] LABS: Albumin 3.2 g/dL (3.4-5.0); BUN/Creatinine Ratio 13.6; Bilirubin, Total 0.9 mg/dL (0.2-1.0); Phosphorus 4.9 mg/dL (2.5-4.90); Potassium 5.1 mmol/L (3.5-5.1); Total Protein 7.4 g/dL (6.4-8.2)
[2016-08-06] MEDS: SODIUM BICARBONATE 50ML VIAL 50 ML in SOD CHL 0.45% 1,000 ML IV SCH ×2 (08:03→16:30)
[2016-08-06 09:00] VITALS: BP 123/73
[2016-08-06] MEDS: ENOXAPARIN SOD 30 MG/0.3 ML SYRINGE SC SCH (10:14)
[2016-08-06] MEDS: ZINC SULFATE 220 MG CAP PO SCH (10:15)
[2016-08-06] MEDS: FAMOTIDINE 20 MG TAB PO SCH (10:15)
[2016-08-06] MEDS: diphenhdrAMINE HCL 25 MG CAP PO PRN (12:41)
[2016-08-06] MEDS: ASCORBIC ACID 500 MG TAB PO SCH ×2 (12:41→21:44)
[2016-08-06 12:55] VITALS: BP_SYST 101; BP_SYST 106; BP_DIAS 65; BP_DIAS 67
[2016-08-06 17:00] VITALS: BP 104/65
[2016-08-06 21:55] VITALS: BP 133/73
[2016-08-07] MEDS: MORPHINE SULF INJ 2 MG/ML SYRINGE 1ML IV PRN ×2 (00:34→16:01)
[2016-08-07] MEDS: diphenhdrAMINE HCL 25 MG CAP PO PRN ×2 (01:21→08:53)
[2016-08-07 04:53] VITALS: BP 119/75
[2016-08-07] MEDS: SODIUM CHLOR 0.9% PF (SALINE LOCK) 10ML VIAL IV SCH ×3 (06:17→21:17)
[2016-08-07] MEDS: FUROSEMIDE 20 MG/2 ML VIAL IV SCH (06:17)
[2016-08-07 06:18] LABS: Basophils # (auto) 0 uL; Basophils % (auto) 0.3 % (0.0-2.0); DEFINITIVE VIEW TRANSMISSION; Eosinophils # (auto) 0.1 uL; Eosinophils % (auto) 2.6 % (0.0-7.0); Hematocrit 29.9 % (36.0-46.0); Hemoglobin 9.8 g/dL (12.2-16.2); Lymphocytes # (auto) 0.5 uL; Lymphocytes % (auto) 13.5 % (10.0-50.0); Mean Corpuscular Hemoglobin 31.1 pg (28.0-32.0); Mean Corpuscular Hgb Conc. 32.8 g/dL (32.0-36.0); Mean Corpuscular Volume 94.8 fL (80.0-100.0); Monocytes # (auto) 0.4 uL; Monocytes % (auto) 9.8 % (0.0-12.0); Neutrophils # (auto) 2.9 uL; Neutrophils % (auto) 73.8 % (37.0-80.0); Platelet Count (auto) 105 10^3/uL (140-450); Red Cell Distribution Width 19.2 % (11.6-16.0); White Blood Cell 3.9 10^3/uL (4.4-10.8)
[2016-08-07] MEDS: ACCU-CHEK COMFORT CURVE STRIP VI SCH ×4 (06:22→21:18)
[2016-08-07] MEDS: InsuLIN REG 1unit/0.01ml Soln (100units/ml) SC SCH ×4 (06:22→21:18)
[2016-08-07 06:45] LABS: Albumin 3.2 g/dL (3.4-5.0); BUN/Creatinine Ratio 13.4; Bilirubin, Total 0.7 mg/dL (0.2-1.0); Calcium 7.9 mg/dL (8.5-10.1); Potassium 4.8 mmol/L (3.5-5.1); Total Protein 7.1 g/dL (6.4-8.2)
[2016-08-07] MEDS: SODIUM BICARBONATE 50ML VIAL 50 ML in SOD CHL 0.45% 1,000 ML IV SCH (06:57)
[2016-08-07] MEDS: FAMOTIDINE 20 MG TAB PO SCH (08:53)
[2016-08-07] MEDS: ZINC SULFATE 220 MG CAP PO SCH (08:53)
[2016-08-07] MEDS: ENOXAPARIN SOD 30 MG/0.3 ML SYRINGE SC SCH (08:53)
[2016-08-07] MEDS: ASCORBIC ACID 500 MG TAB PO SCH ×2 (08:53→21:17)
[2016-08-07 09:00] VITALS: BP 109/71
[2016-08-07 13:00] VITALS: BP 104/55
[2016-08-07] MEDS: hydrOXYzine HCL 10 MG TAB PO PRN ×2 (13:59→21:23)
[2016-08-07 17:00] VITALS: BP 108/68
[2016-08-07] MEDS: FUROSEMIDE 40 MG/4 ML VIAL IV SCH (17:35)
[2016-08-07] MEDS ORDERED: FUROSEMIDE 20 MG/2 ML VIAL IV SCH (18:00)
[2016-08-07 22:00] VITALS: BP 109/65
[2016-08-08] VITALS (7 sets, daily range): BP systolic 104–126; BP diastolic 64–74
[2016-08-08] MEDS: diphenhdrAMINE HCL 25 MG CAP PO PRN (04:11)
[2016-08-08] MEDS: FUROSEMIDE 40 MG/4 ML VIAL IV SCH ×2 (06:21→18:01)
[2016-08-08] MEDS: SODIUM CHLOR 0.9% PF (SALINE LOCK) 10ML VIAL IV SCH ×3 (06:21→22:01)
[2016-08-08] MEDS: InsuLIN REG 1unit/0.01ml Soln (100units/ml) SC SCH ×4 (06:22→22:00)
[2016-08-08] MEDS: ACCU-CHEK COMFORT CURVE STRIP VI SCH ×4 (06:22→22:02)
[2016-08-08 06:47] LABS: BUN/Creatinine Ratio 13.5; Calcium 7.8 mg/dL (8.5-10.1); Potassium 4.8 mmol/L (3.5-5.1)
[2016-08-08] MEDS: FAMOTIDINE 20 MG TAB PO SCH (10:02)
[2016-08-08] MEDS: ENOXAPARIN SOD 30 MG/0.3 ML SYRINGE SC SCH (10:02)
[2016-08-08] MEDS: ASCORBIC ACID 500 MG TAB PO SCH ×2 (10:02→22:01)
[2016-08-08] MEDS: ZINC SULFATE 220 MG CAP PO SCH (10:02)
[2016-08-08] MEDS: MORPHINE SULF INJ 2 MG/ML SYRINGE 1ML IV PRN ×2 (10:16→23:52)
[2016-08-08] MEDS: hydrOXYzine HCL 10 MG TAB PO PRN ×2 (10:16→19:38)
[2016-08-09 04:58] VITALS: BP 102/60
[2016-08-09 06:16] LABS: BUN/Creatinine Ratio 14.3; Calcium 7.7 mg/dL (8.5-10.1); Potassium 4.8 mmol/L (3.5-5.1)
[2016-08-09] MEDS: SODIUM CHLOR 0.9% PF (SALINE LOCK) 10ML VIAL IV SCH ×3 (06:27→22:35)
[2016-08-09] MEDS: ACCU-CHEK COMFORT CURVE STRIP VI SCH ×4 (06:27→22:36)
[2016-08-09] MEDS: FUROSEMIDE 40 MG/4 ML VIAL IV SCH ×2 (06:27→17:38)
[2016-08-09] MEDS: InsuLIN REG 1unit/0.01ml Soln (100units/ml) SC SCH ×4 (06:28→22:00)
[2016-08-09] MEDS: hydrOXYzine HCL 10 MG TAB PO PRN (07:42)
[2016-08-09] MEDS: MORPHINE SULF INJ 2 MG/ML SYRINGE 1ML IV PRN ×2 (07:42→14:32)
[2016-08-09 08:00] VITALS: BP 104/61
[2016-08-09 09:00] VITALS: BP 104/61
[2016-08-09] MEDS: ENOXAPARIN SOD 30 MG/0.3 ML SYRINGE SC SCH (09:49)
[2016-08-09] MEDS: ASCORBIC ACID 500 MG TAB PO SCH ×2 (09:49→22:35)
[2016-08-09] MEDS: FAMOTIDINE 20 MG TAB PO SCH (09:49)
[2016-08-09] MEDS: ZINC SULFATE 220 MG CAP PO SCH (09:49)
[2016-08-09 13:00] VITALS: BP 113/73
[2016-08-09] MEDS: diphenhdrAMINE HCL 25 MG CAP PO PRN (14:32)
[2016-08-09 17:00] VITALS: BP 113/73
[2016-08-09 22:00] VITALS: BP 121/70
[2016-08-10 05:00] VITALS: BP 115/66
[2016-08-10] MEDS: MORPHINE SULF INJ 2 MG/ML SYRINGE 1ML IV PRN ×4 (05:07→20:06)
[2016-08-10] MEDS: FUROSEMIDE 40 MG/4 ML VIAL IV SCH ×3 (06:00→17:42)
[2016-08-10] MEDS: SODIUM CHLOR 0.9% PF (SALINE LOCK) 10ML VIAL IV SCH ×3 (06:00→22:35)
[2016-08-10] MEDS: ACCU-CHEK COMFORT CURVE STRIP VI SCH ×4 (06:20→22:36)
[2016-08-10] MEDS: InsuLIN REG 1unit/0.01ml Soln (100units/ml) SC SCH ×4 (06:26→22:36)
[2016-08-10] MEDS: diphenhdrAMINE HCL 25 MG CAP PO PRN ×3 (07:37→17:36)
[2016-08-10 07:55] VITALS: BP 125/74
[2016-08-10 09:48] LABS: Basophils # (auto) 0 uL; Basophils % (auto) 0.2 % (0.0-2.0); DEFINITIVE VIEW TRANSMISSION; Eosinophils # (auto) 0.1 uL; Eosinophils % (auto) 1.7 % (0.0-7.0); Hematocrit 30.5 % (36.0-46.0); Lymphocytes # (auto) 0.3 uL; Lymphocytes % (auto) 7.9 % (10.0-50.0); Mean Corpuscular Hemoglobin 31.6 pg (28.0-32.0); Mean Corpuscular Hgb Conc. 32.9 g/dL (32.0-36.0); Mean Platelet Volume 7.3 fL (7.4-10.4); Monocytes # (auto) 0.4 uL; Monocytes % (auto) 9.4 % (0.0-12.0); Neutrophils # (auto) 3.4 uL; Neutrophils % (auto) 80.8 % (37.0-80.0); Platelet Count (auto) 90 10^3/uL (140-450); SUSPECT VIEW TRANSMISSION; White Blood Cell 4.2 10^3/uL (4.4-10.8)
[2016-08-10] MEDS: ENOXAPARIN SOD 30 MG/0.3 ML SYRINGE SC SCH (10:00)
[2016-08-10 10:23] LABS: Albumin 3.2 g/dL (3.4-5.0); BUN/Creatinine Ratio 14.7; Bilirubin, Total 0.6 mg/dL (0.2-1.0); Calcium 8.3 mg/dL (8.5-10.1); Potassium 4.3 mmol/L (3.5-5.1); Total Protein 7.3 g/dL (6.4-8.2)
[2016-08-10] MEDS: FAMOTIDINE 20 MG TAB PO SCH (10:29)
[2016-08-10] MEDS: ASCORBIC ACID 500 MG TAB PO SCH ×2 (10:29→22:35)
[2016-08-10] MEDS: ZINC SULFATE 220 MG CAP PO SCH (10:29)
[2016-08-10] MEDS: DOCUSATE SOD 100 MG CAP PO SCH ×2 (10:31→22:35)
[2016-08-10 12:17] LABS: Anisocytosis Slight; Platelet Estimate Decreased
[2016-08-10 13:03] VITALS: BP 128/76
[2016-08-10] MEDS: ERGOCALCIFEROL 50,000 UNIT(1.25MG) CAP PO SCH (13:08)
[2016-08-10 13:32] LABS: INR 1.18 (0.9-1.15); Prothrombin Time 12.7 sec (9.37-12.3)
[2016-08-10 16:34] VITALS: BP 122/74
[2016-08-10 18:57] LABS: Body Fluid Polymorphonuclear 54 %
[2016-08-10 22:00] VITALS: BP 90/51
[2016-08-11] MEDS: MORPHINE SULF INJ 2 MG/ML SYRINGE 1ML IV PRN ×2 (00:44→13:07)
[2016-08-11 05:00] VITALS: BP 96/63
[2016-08-11] MEDS: FUROSEMIDE 40 MG/4 ML VIAL IV SCH (06:40)
[2016-08-11] MEDS: SODIUM CHLOR 0.9% PF (SALINE LOCK) 10ML VIAL IV SCH ×3 (06:40→22:49)
[2016-08-11 06:51] LABS: BUN/Creatinine Ratio 15.1; Bilirubin, Total 0.6 mg/dL (0.2-1.0); Calcium 8.3 mg/dL (8.5-10.1); Potassium 4.8 mmol/L (3.5-5.1); Total Protein 6.7 g/dL (6.4-8.2)
[2016-08-11] MEDS: InsuLIN REG 1unit/0.01ml Soln (100units/ml) SC SCH ×4 (07:00→22:00)
[2016-08-11] MEDS: ACCU-CHEK COMFORT CURVE STRIP VI SCH ×3 (07:41→17:19)
[2016-08-11 08:00] VITALS: BP 90/53
[2016-08-11 09:00] VITALS: BP 101/52
[2016-08-11] MEDS: diphenhdrAMINE HCL 25 MG CAP PO PRN ×2 (10:00→20:03)
[2016-08-11] MEDS: FAMOTIDINE 20 MG TAB PO SCH (10:00)
[2016-08-11] MEDS: ASCORBIC ACID 500 MG TAB PO SCH ×2 (10:01→22:48)
[2016-08-11] MEDS: ENOXAPARIN SOD 30 MG/0.3 ML SYRINGE SC SCH (10:01)
[2016-08-11] MEDS: DOCUSATE SOD 100 MG CAP PO SCH ×2 (10:01→22:49)
[2016-08-11] MEDS: ZINC SULFATE 220 MG CAP PO SCH (10:10)
[2016-08-11] MEDS ORDERED: FUROSEMIDE 40 MG/4 ML VIAL IV ONE (11:30)
[2016-08-11 13:00] VITALS: BP 105/64
[2016-08-11 15:41] LABS: Partial Thromboplastin Time 25.2 sec (22.64-33.71)
[2016-08-11 16:25] LABS: INR 1.18 (0.9-1.15); Prothrombin Time 12.7 sec (9.37-12.3)
[2016-08-11 17:00] VITALS: BP 99/56
[2016-08-11] MEDS ORDERED: FUROSEMIDE 40 MG/4 ML VIAL IV SCH (18:00)
[2016-08-11 21:30] VITALS: BP 98/57
[2016-08-12 02:19] LABS: Urine Bilirubin Negative (Negative); Urine Blood TRACE /uL (Negative); Urine Color Yellow (Yellow); Urine Glucose Normal (Normal); Urine Ketone Negative (Negative); Urine Nitrite Negative (Negative); Urine RBC 4 /hpf (0 - 4); Urine Squamous Epithelial Cell FEW /hpf (<5); Urine Urobilinogen Normal (Negative)
[2016-08-12] MEDS ORDERED: LIDOCAINE 1% HCL (LOCAL ANESTH.) INJ 20ML MDV ONE (06:54)
[2016-08-12] MEDS ORDERED: LIDOCAINE W/ EPINEPHRINE 1 % INJ 30ML ONE (06:54)
[2016-08-12] MEDS ORDERED: ceFAZolin 1GM VL ONE (06:54)
[2016-08-12] MEDS ORDERED: BUPIVACAINE 0.25% INJ 50ML VIAL ONE (06:55)
[2016-08-12] MEDS ORDERED: BUPIVACAINE W/ EPINEPH 0.25% INJ 50ML MDV ONE (06:55)
[2016-08-12] MEDS ORDERED: HEPARIN SODIUM (PORCINE) 5000 UNITS/ML 1ML VIAL ONE (06:55)
[2016-08-12] MEDS ORDERED: HEPARIN 1,000 UNITS/ml 1ML VIAL ONE (06:55)
[2016-08-12] MEDS ORDERED: CLINDAMYCIN 600MG IV 50 ML IV ONE (07:20)
[2016-08-12] MEDS ORDERED: LEVOFLOXACIN 500MG 100 ML IV ONE (07:21)
[2016-08-12] MEDS ORDERED: fentaNYL CITRATE 100 MCG/2 ML VL ONE (07:22)
[2016-08-12] MEDS ORDERED: ONDANSETRON HCL 4 MG/2 ML VIAL ONE (07:22)
[2016-08-12] MEDS ORDERED: diphenhdrAMINE HCL 50 MG/1 ML VL IV ONE (07:23)
[2016-08-12] MEDS ORDERED: KETOROLAC TROMETH 60MG/2ML VIAL IM ONE (07:23)
[2016-08-12] MEDS ORDERED: DEXAMETHASONE SOD PHOS 10MG/1ML VIAL INJ ONE (07:23)
[2016-08-12] MEDS ORDERED: ONDANSETRON HCL 4 MG/2 ML VIAL IV ONE (08:30)
[2016-08-12] MEDS ORDERED: NALOXONE HCL 0.4 MG/ML VIAL IV ONE (08:30)
[2016-08-12] MEDS ORDERED: ePHEDrine SULFATE 50 MG/ML AMP IV ONE (08:30)
[2016-08-12 09:00] VITALS: BP 123/76
[2016-08-12] MEDS: DOCUSATE SOD 100 MG CAP PO SCH ×2 (10:00→22:14)
[2016-08-12] MEDS: ENOXAPARIN SOD 30 MG/0.3 ML SYRINGE SC SCH (10:00)
[2016-08-12] MEDS: FAMOTIDINE 20 MG TAB PO SCH (10:00)
[2016-08-12] MEDS: ZINC SULFATE 220 MG CAP PO SCH (10:00)
[2016-08-12] MEDS: ASCORBIC ACID 500 MG TAB PO SCH ×2 (10:00→22:12)
[2016-08-12] MEDS ORDERED: SODIUM CHL 0.9% 1000 ML BAG XX ONE (10:15)
[2016-08-12] MEDS ORDERED: EPOETIN ALFA 10,000 UNIT/1 ML VIAL IV ONE (10:15)
[2016-08-12 11:02] LABS: Basophils # (auto) 0 uL; DEFINITIVE VIEW TRANSMISSION; Eosinophils # (auto) 0 uL; Eosinophils % (auto) 0.3 % (0.0-7.0); Hematocrit 28.7 % (36.0-46.0); Hemoglobin 9.3 g/dL (12.2-16.2); Lymphocytes # (auto) 0.2 uL; Mean Corpuscular Hemoglobin 31.1 pg (28.0-32.0); Mean Corpuscular Hgb Conc. 32.3 g/dL (32.0-36.0); Mean Corpuscular Volume 96.4 fL (80.0-100.0); Mean Platelet Volume 8.2 fL (7.4-10.4); Monocytes # (auto) 0.1 uL; Monocytes % (auto) 2.9 % (0.0-12.0); Neutrophils # (auto) 4.1 uL; Neutrophils % (auto) 91.8 % (37.0-80.0); Platelet Count (auto) 75 10^3/uL (140-450); Red Cell Distribution Width 19.7 % (11.6-16.0); White Blood Cell 4.5 10^3/uL (4.4-10.8)
[2016-08-12 11:20] LABS: BUN/Creatinine Ratio 15.2; Bilirubin, Total 0.6 mg/dL (0.2-1.0); Calcium 8.4 mg/dL (8.5-10.1); Potassium 4.9 mmol/L (3.5-5.1)
[2016-08-12 11:21] LABS: Albumin 3.1 g/dL (3.4-5.0)
[2016-08-12 11:25] LABS: Anisocytosis Moderate; Ovalocytes FEW
[2016-08-12 11:26] LABS: Platelet Estimate Decreased
[2016-08-12] MEDS: ACCU-CHEK COMFORT CURVE STRIP VI SCH ×3 (11:49→22:15)
[2016-08-12] MEDS: InsuLIN REG 1unit/0.01ml Soln (100units/ml) SC SCH ×2 (11:49→17:00)
[2016-08-12] MEDS: SODIUM CHLOR 0.9% PF (SALINE LOCK) 10ML VIAL IV SCH ×2 (11:50→22:12)
[2016-08-12] MEDS ORDERED: ALBUMIN 25% 100 ML IV ONE (12:45)
[2016-08-12 13:00] VITALS: BP 121/74
[2016-08-12 16:04] LABS: INR 1.17 (0.9-1.15); Prothrombin Time 12.6 sec (9.37-12.3)
[2016-08-12] MEDS: MORPHINE SULF INJ 2 MG/ML SYRINGE 1ML IV PRN ×2 (16:26→22:14)
[2016-08-12 17:00] VITALS: BP 97/56
[2016-08-12] MEDS: diphenhdrAMINE HCL 25 MG CAP PO PRN (18:29)
[2016-08-12 20:00] VITALS: BP 111/66
[2016-08-12] MEDS: ONDANSETRON HCL 4 MG/2 ML VIAL IV PRN (20:17)
[2016-08-12 22:22] VITALS: BP 111/66
[2016-08-13 05:30] VITALS: BP 86/46
[2016-08-13] MEDS: SODIUM CHLOR 0.9% PF (SALINE LOCK) 10ML VIAL IV SCH ×3 (06:00→22:00)
[2016-08-13 07:00] LABS: Basophils # (auto) 0 uL; DEFINITIVE VIEW TRANSMISSION; Eosinophils # (auto) 0 uL; Eosinophils % (auto) 0.1 % (0.0-7.0); Hematocrit 27.8 % (36.0-46.0); Hemoglobin 8.8 g/dL (12.2-16.2); Lymphocytes # (auto) 0.3 uL; Lymphocytes % (auto) 5.7 % (10.0-50.0); Mean Corpuscular Hemoglobin 30.7 pg (28.0-32.0); Mean Corpuscular Hgb Conc. 31.6 g/dL (32.0-36.0); Mean Corpuscular Volume 97.2 fL (80.0-100.0); Mean Platelet Volume 8.2 fL (7.4-10.4); Monocytes # (auto) 0.5 uL; Monocytes % (auto) 8.3 % (0.0-12.0); Neutrophils # (auto) 4.7 uL; Neutrophils % (auto) 85.9 % (37.0-80.0); Platelet Count (auto) 92 10^3/uL (140-450); White Blood Cell 5.5 10^3/uL (4.4-10.8)
[2016-08-13] MEDS: InsuLIN REG 1unit/0.01ml Soln (100units/ml) SC SCH ×4 (07:00→22:36)
[2016-08-13] MEDS: ACCU-CHEK COMFORT CURVE STRIP VI SCH ×4 (07:00→22:36)
[2016-08-13 07:23] LABS: Red Cell Distribution Width 20.5 % (11.6-16.0)
[2016-08-13 07:43] LABS: Albumin 3.1 g/dL (3.4-5.0); Bilirubin, Total 0.5 mg/dL (0.2-1.0); Calcium 8.3 mg/dL (8.5-10.1); Potassium 4.8 mmol/L (3.5-5.1); Total Protein 7.1 g/dL (6.4-8.2)
[2016-08-13 08:00] VITALS: BP 111/71
[2016-08-13 09:00] VITALS: BP 111/71
[2016-08-13] MEDS: MORPHINE SULF INJ 2 MG/ML SYRINGE 1ML IV PRN ×2 (10:04→22:37)
[2016-08-13] MEDS: diphenhdrAMINE HCL 25 MG CAP PO PRN ×2 (10:04→22:55)
[2016-08-13] MEDS: ZINC SULFATE 220 MG CAP PO SCH (10:04)
[2016-08-13] MEDS: ENOXAPARIN SOD 30 MG/0.3 ML SYRINGE SC SCH (10:04)
[2016-08-13] MEDS: DOCUSATE SOD 100 MG CAP PO SCH ×2 (10:04→22:36)
[2016-08-13] MEDS: FAMOTIDINE 20 MG TAB PO SCH (10:04)
[2016-08-13] MEDS: ASCORBIC ACID 500 MG TAB PO SCH ×2 (10:04→22:35)
[2016-08-13 13:00] VITALS: BP 116/79
[2016-08-13 13:17] LABS: Ovalocytes FEW; Platelet Estimate Decreased
[2016-08-13 13:18] LABS: Anisocytosis Moderate; Stomatocytes Few; Tear Drop Cells FEW
[2016-08-13] MEDS ORDERED: SODIUM CHL 0.9% 1000 ML BAG XX ONE (14:45)
[2016-08-13] MEDS ORDERED: EPOETIN ALFA 10,000 UNIT/1 ML VIAL IV ONE (14:45)
[2016-08-13 17:16] VITALS: BP_SYST 101; BP_SYST 98; BP_DIAS 60; BP_DIAS 67
[2016-08-13 21:30] VITALS: BP 102/69
[2016-08-14 05:00] VITALS: BP 93/50
[2016-08-14] MEDS: SODIUM CHLOR 0.9% PF (SALINE LOCK) 10ML VIAL IV SCH ×3 (06:00→21:46)
[2016-08-14] MEDS: ACCU-CHEK COMFORT CURVE STRIP VI SCH ×4 (06:50→21:52)
[2016-08-14] MEDS: InsuLIN REG 1unit/0.01ml Soln (100units/ml) SC SCH ×4 (06:50→22:00)
[2016-08-14 07:15] LABS: Basophils # (auto) 0 uL; DEFINITIVE VIEW TRANSMISSION; Eosinophils # (auto) 0.1 uL; Eosinophils % (auto) 1.5 % (0.0-7.0); Hematocrit 26.9 % (36.0-46.0); Hemoglobin 8.8 g/dL (12.2-16.2); Lymphocytes # (auto) 0.5 uL; Lymphocytes % (auto) 7.8 % (10.0-50.0); Mean Corpuscular Hemoglobin 31.2 pg (28.0-32.0); Mean Corpuscular Hgb Conc. 32.7 g/dL (32.0-36.0); Mean Corpuscular Volume 95.4 fL (80.0-100.0); Mean Platelet Volume 8.1 fL (7.4-10.4); Monocytes # (auto) 0.6 uL; Monocytes % (auto) 10.1 % (0.0-12.0); Neutrophils # (auto) 4.7 uL; Neutrophils % (auto) 80.6 % (37.0-80.0); Platelet Count (auto) 73 10^3/uL (140-450); Red Cell Distribution Width 19.4 % (11.6-16.0); SUSPECT VIEW TRANSMISSION; White Blood Cell 5.8 10^3/uL (4.4-10.8)
[2016-08-14 07:48] LABS: Albumin 3.3 g/dL (3.4-5.0); BUN/Creatinine Ratio 15.1; Bilirubin, Total 0.5 mg/dL (0.2-1.0); Calcium 8.4 mg/dL (8.5-10.1); Potassium 4.9 mmol/L (3.5-5.1); Total Protein 7.1 g/dL (6.4-8.2)
[2016-08-14] MEDS: ALBUMIN 25% 100 ML IV SCH ×2 (08:00→09:00)
[2016-08-14 08:17] LABS: Platelet Estimate Decreased
[2016-08-14 08:18] LABS: Anisocytosis Moderate; Ovalocytes FEW
[2016-08-14 09:00] VITALS: BP 97/49
[2016-08-14] MEDS: DOCUSATE SOD 100 MG CAP PO SCH ×2 (11:04→21:47)
[2016-08-14] MEDS: ZINC SULFATE 220 MG CAP PO SCH (11:05)
[2016-08-14] MEDS: FAMOTIDINE 20 MG TAB PO SCH (11:05)
[2016-08-14] MEDS: ENOXAPARIN SOD 30 MG/0.3 ML SYRINGE SC SCH (11:05)
[2016-08-14] MEDS: ASCORBIC ACID 500 MG TAB PO SCH ×2 (11:05→21:48)
[2016-08-14 13:00] VITALS: BP 96/58
[2016-08-14] MEDS: MORPHINE SULF INJ 2 MG/ML SYRINGE 1ML IV PRN (13:57)
[2016-08-14 22:00] VITALS: BP 115/55
[2016-08-15 05:00] VITALS: BP 101/63
[2016-08-15] MEDS: SODIUM CHLOR 0.9% PF (SALINE LOCK) 10ML VIAL IV SCH ×3 (06:01→22:10)
[2016-08-15] MEDS: ACCU-CHEK COMFORT CURVE STRIP VI SCH ×4 (06:39→22:18)
[2016-08-15] MEDS: InsuLIN REG 1unit/0.01ml Soln (100units/ml) SC SCH ×4 (07:00→22:18)
[2016-08-15] MEDS: MORPHINE SULF INJ 2 MG/ML SYRINGE 1ML IV PRN ×3 (09:02→22:10)
[2016-08-15 09:18] VITALS: BP 92/68
[2016-08-15] MEDS: ZINC SULFATE 220 MG CAP PO SCH (10:56)
[2016-08-15] MEDS: FAMOTIDINE 20 MG TAB PO SCH (10:56)
[2016-08-15] MEDS: ASCORBIC ACID 500 MG TAB PO SCH ×2 (10:56→22:10)
[2016-08-15] MEDS: ENOXAPARIN SOD 30 MG/0.3 ML SYRINGE SC SCH (10:56)
[2016-08-15] MEDS: DOCUSATE SOD 100 MG CAP PO SCH ×2 (10:56→22:10)
[2016-08-15 13:00] VITALS: BP 100/70
[2016-08-15 17:00] VITALS: BP 110/80
[2016-08-15] MEDS: ONDANSETRON HCL 4 MG/2 ML VIAL IV PRN (18:16)
[2016-08-15 21:20] VITALS: BP 99/67
[2016-08-15 21:23] VITALS: BP 108/57
[2016-08-16] MEDS: MORPHINE SULF INJ 2 MG/ML SYRINGE 1ML IV PRN (03:29)
[2016-08-16 05:20] VITALS: BP 101/52
[2016-08-16] MEDS: SODIUM CHLOR 0.9% PF (SALINE LOCK) 10ML VIAL IV SCH ×3 (06:00→21:54)
[2016-08-16] MEDS: InsuLIN REG 1unit/0.01ml Soln (100units/ml) SC SCH ×4 (06:51→22:14)
[2016-08-16] MEDS: ACCU-CHEK COMFORT CURVE STRIP VI SCH ×4 (06:51→22:03)
[2016-08-16 09:00] VITALS: BP 109/86
[2016-08-16] MEDS: ENOXAPARIN SOD 30 MG/0.3 ML SYRINGE SC SCH (11:00)
[2016-08-16] MEDS: FAMOTIDINE 20 MG TAB PO SCH (11:01)
[2016-08-16] MEDS: ZINC SULFATE 220 MG CAP PO SCH (11:01)
[2016-08-16] MEDS: DOCUSATE SOD 100 MG CAP PO SCH ×2 (11:01→21:52)
[2016-08-16] MEDS: ASCORBIC ACID 500 MG TAB PO SCH ×2 (11:01→21:54)
[2016-08-16 12:42] VITALS: BP 105/60
[2016-08-16] MEDS: metroNIDAZOLE 500 MG TAB PO SCH ×2 (13:57→21:52)
[2016-08-16 17:00] VITALS: BP 82/49
[2016-08-16 21:52] VITALS: BP 98/49
[2016-08-17 04:51] VITALS: BP 103/48
[2016-08-17] MEDS: metroNIDAZOLE 500 MG TAB PO SCH ×3 (06:03→22:00)
[2016-08-17] MEDS: SODIUM CHLOR 0.9% PF (SALINE LOCK) 10ML VIAL IV SCH ×3 (06:04→22:11)
[2016-08-17] MEDS: MORPHINE SULF INJ 2 MG/ML SYRINGE 1ML IV PRN (06:12)
[2016-08-17] MEDS: ACCU-CHEK COMFORT CURVE STRIP VI SCH ×4 (06:28→22:00)
[2016-08-17] MEDS: InsuLIN REG 1unit/0.01ml Soln (100units/ml) SC SCH ×4 (06:29→22:00)
[2016-08-17 07:22] LABS: Albumin 3.2 g/dL (3.4-5.0); BUN/Creatinine Ratio 14.3; Bilirubin, Total 0.6 mg/dL (0.2-1.0); Calcium 8.8 mg/dL (8.5-10.1); Potassium 5.2 mmol/L (3.5-5.1); Total Protein 7.3 g/dL (6.4-8.2)
[2016-08-17] MEDS ORDERED: EPOETIN ALFA 10,000 UNIT/1 ML VIAL IV ONE (08:00)
[2016-08-17] MEDS ORDERED: SODIUM CHL 0.9% 1000 ML BAG XX ONE (08:00)
[2016-08-17] MEDS: ASCORBIC ACID 500 MG TAB PO SCH ×3 (09:29→22:00)
[2016-08-17] MEDS: ENOXAPARIN SOD 30 MG/0.3 ML SYRINGE SC SCH (09:29)
[2016-08-17] MEDS: DOCUSATE SOD 100 MG CAP PO SCH ×3 (09:29→22:00)
[2016-08-17] MEDS: ZINC SULFATE 220 MG CAP PO SCH (09:30)
[2016-08-17] MEDS: FAMOTIDINE 20 MG TAB PO SCH (09:30)
[2016-08-17 09:39] VITALS: BP 89/52
[2016-08-17 10:57] LABS: Basophils # (auto) 0 uL; Basophils % (auto) 0.1 % (0.0-2.0); DEFINITIVE VIEW TRANSMISSION; Eosinophils # (auto) 0.1 uL; Eosinophils % (auto) 1.2 % (0.0-7.0); Hematocrit 25.6 % (36.0-46.0); Hemoglobin 8.1 g/dL (12.2-16.2); Lymphocytes # (auto) 0.3 uL; Lymphocytes % (auto) 4.1 % (10.0-50.0); Mean Corpuscular Hgb Conc. 31.9 g/dL (32.0-36.0); Mean Corpuscular Volume 97.4 fL (80.0-100.0); Mean Platelet Volume 7.3 fL (7.4-10.4); Monocytes # (auto) 0.5 uL; Monocytes % (auto) 7.6 % (0.0-12.0); Neutrophils # (auto) 6.2 uL; Platelet Count (auto) 120 10^3/uL (140-450); White Blood Cell 7.1 10^3/uL (4.4-10.8)
[2016-08-17 11:01] LABS: Red Cell Distribution Width 20.4 % (11.6-16.0)
[2016-08-17 11:16] LABS: Platelet Estimate Decreased
[2016-08-17 11:18] LABS: Anisocytosis Moderate
[2016-08-17 12:06] VITALS: BP 98/62
[2016-08-17] MEDS: ERGOCALCIFEROL 50,000 UNIT(1.25MG) CAP PO SCH (12:26)
[2016-08-17 16:53] VITALS: BP 108/53
[2016-08-17 22:00] VITALS: BP 92/52
[2016-08-18] MEDS ORDERED: diphenhdrAMINE HCL 25 MG CAP PO ONE (05:15)
[2016-08-18] MEDS: SODIUM CHLOR 0.9% PF (SALINE LOCK) 10ML VIAL IV SCH ×2 (05:23→14:00)
[2016-08-18] MEDS: InsuLIN REG 1unit/0.01ml Soln (100units/ml) SC SCH ×2 (05:24→12:00)
[2016-08-18] MEDS: metroNIDAZOLE 500 MG TAB PO SCH (05:24)
[2016-08-18] MEDS: ACCU-CHEK COMFORT CURVE STRIP VI SCH ×2 (05:24→11:30)
[2016-08-18 05:27] VITALS: BP 93/45
[2016-08-18 08:16] VITALS: BP 114/64
[2016-08-18 08:59] VITALS: BP 93/48
[2016-08-18] MEDS: ASCORBIC ACID 500 MG TAB PO SCH (09:51)
[2016-08-18] MEDS: ZINC SULFATE 220 MG CAP PO SCH (09:51)
[2016-08-18] MEDS: FAMOTIDINE 20 MG TAB PO SCH (09:51)
[2016-08-18] MEDS: ENOXAPARIN SOD 30 MG/0.3 ML SYRINGE SC SCH (09:52)
[2016-08-18] MEDS: DOCUSATE SOD 100 MG CAP PO SCH (09:52)
[2016-08-18] MEDS ORDERED: ACETAMINOPHEN 325 MG TAB PO PRN (12:00)
[2016-08-18 13:16] VITALS: BP 100/53
[2016-08-18 15:10] VITALS: BP 114/64
== END 2016-08-18 15:10 | disposition home or self-care (01) | DRG 194 ==
LOC: EDBD 17:55 → ER 18:24 → TELE 18:25 → TELE-EAST 08-02 14:40 → EAST 08-12 14:49 → UNDODISIN 08-17 19:00
PROVIDERS: ADMIT Emergency Medicine; ATTEND Internal Medicine
PROC: 0W9B3ZZ Drainage of Left Pleural Cavity, Percutaneous Approach (ICD-10-PCS; principal; 2016-08-10)
PROC: 06HC33Z Insertion of Infusion Device into Right Common Iliac Vein, Percutaneous Approach (ICD-10-PCS; 2016-08-12)
PROC: 5A1D60Z (ICD-10-PCS; 2016-08-14)
DX: I13.2 Hypertensive heart and chronic kidney disease with heart failure and with stage 5 chronic kidney disease, or end stage renal disease (principal); J96.20 Acute and chronic respiratory failure, unspecified whether with hypoxia or hypercapnia; N17.0 Acute kidney failure with tubular necrosis; J18.9 Pneumonia, unspecified organism; R18.8 Other ascites; A04.7 Enterocolitis due to Clostridium difficile; I42.0 Dilated cardiomyopathy; N18.6 End stage renal disease; J44.0 Chronic obstructive pulmonary disease with (acute) lower respiratory infection; E11.21 Type 2 diabetes mellitus with diabetic nephropathy; I50.43 Acute on chronic combined systolic (congestive) and diastolic (congestive) heart failure; H54.8 Legal blindness, as defined in USA; G40.909 Epilepsy, unspecified, not intractable, without status epilepticus; E55.9 Vitamin D deficiency, unspecified; D50.0 Iron deficiency anemia secondary to blood loss (chronic); E04.9 Nontoxic goiter, unspecified; E11.22 Type 2 diabetes mellitus with diabetic chronic kidney disease; E44.0 Moderate protein-calorie malnutrition; E78.5 Hyperlipidemia, unspecified; D63.1 Anemia in chronic kidney disease; E87.5 Hyperkalemia; Z51.5 Encounter for palliative care; Z91.19 Patient's noncompliance with other medical treatment and regimen; Z99.2 Dependence on renal dialysis; Z82.1 Family history of blindness and visual loss; Z82.49 Family history of ischemic heart disease and other diseases of the circulatory system; Z83.3 Family history of diabetes mellitus; Z88.5 Allergy status to narcotic agent; Z88.0 Allergy status to penicillin; Z88.2 Allergy status to sulfonamides; Z88.6 Allergy status to analgesic agent; Z91.041 Radiographic dye allergy status; Z95.0 Presence of cardiac pacemaker; Z87.891 Personal history of nicotine dependence; Z99.81 Dependence on supplemental oxygen; Z68.33 Body mass index [BMI] 33.0-33.9, adult
CPT/HCPCS: 36415; 36600; 51702; 71010; 71020; 71250; 74176; 76604; 76775; 76942; 80048; 80053; 81001; 82306; 82390; 82570; 82805; 82962; 83540; 83550; 83735; 83880; 83970; 84100; 84156; 84300; 84484; 85025; 85610; 85730; 86803; 87040; 87081; 87205; 87340; 87493; 89051; 90935; 93005; 94640; 94761; 96372; 96374; 96375; 97001; J0690; J0885; J1100; J1642; J1815; J1885; J1956; J2001; J2405; J3490

== ENCOUNTER 2016-08-29 18:23 | Inpatient (IN) | payer MEDICAID ==
[~2016-08-29] VITALS: Ht 172.7 cm; Wt 99.4 kg
[~2016-08-29 18:23] MED LIST changes: +DIGO0.1262 PO; +FAM20T PO; +[UNRECOGNIZED DRUG - CODE] PO
[2016-08-29] MEDS ORDERED: MORPHINE SULF INJ 2 MG/ML SYRINGE 1ML IV ONE (19:15)
[2016-08-29] MEDS ORDERED: ASPirin 81 mg TAB PO ONE (19:15)
[2016-08-29] MEDS ORDERED: ONDANSETRON HCL 4 MG/2 ML VIAL IV ONE (19:15)
[2016-08-29] MEDS ORDERED: NITROGLYCERIN 0.4 MG SL TAB SL ONE (19:15)
[2016-08-29 19:49] LABS: Basophils # (auto) 0 uL; DEFINITIVE VIEW TRANSMISSION; Eosinophils # (auto) 0.1 uL; Lymphocytes # (auto) 0.4 uL; Lymphocytes % (auto) 8.8 % (10.0-50.0); Monocytes # (auto) 0.4 uL
[2016-08-29 19:57] LABS: Basophils % (auto) 0.4 % (0.0-2.0); Eosinophils % (auto) 1.4 % (0.0-7.0); Hematocrit 22.2 % (36.0-46.0); Mean Corpuscular Hemoglobin 31.4 pg (28.0-32.0); Mean Corpuscular Hgb Conc. 31.4 g/dL (32.0-36.0); Monocytes % (auto) 8.2 % (0.0-12.0); Neutrophils # (auto) 4.1 uL; Neutrophils % (auto) 81.2 % (37.0-80.0); Platelet Count (auto) 137 10^3/uL (140-450); White Blood Cell 5.1 10^3/uL (4.4-10.8)
[2016-08-29 20:12] LABS: INR 1.13 (0.9-1.15); Prothrombin Time 12.2 sec (9.37-12.3)
[2016-08-29 20:25] LABS: Albumin 2.9 g/dL (3.4-5.0); BUN/Creatinine Ratio 5.7; Bilirubin, Total 0.7 mg/dL (0.2-1.0); Calcium 7.5 mg/dL (8.5-10.1); Magnesium 2.2 mg/dL (1.6-2.6); Total Protein 6.9 g/dL (6.4-8.2)
[2016-08-29] MEDS ORDERED: SODIUM CHLORIDE 0.9% 250 ML IV ONE (20:30)
[2016-08-29 21:04] LABS: Anisocytosis Moderate; Ovalocytes FEW; Platelet Estimate Decreased; Stomatocytes Few
[2016-08-30] VITALS (14 sets, daily range): BP systolic 80–106; BP diastolic 46–60
[2016-08-30] MEDS ORDERED: MORPHINE SULF INJ 2 MG/ML SYRINGE 1ML IV PRN (01:00)
[2016-08-30] MEDS ORDERED: TEMAZEPAM 15 MG CAP PO PRN (01:00)
[2016-08-30] MEDS ORDERED: DEXTROSE (50%) 50ML SYRG IV PRN (01:00)
[2016-08-30] MEDS: POTASSIUM CHL 20MEQ/100ML 100 ML IV SCH ×2 (01:00→04:19)
[2016-08-30] MEDS ORDERED: NITROGLYCERIN 0.4 MG SL TAB SL PRN (01:00)
[2016-08-30] MEDS: ACETAMINOPHEN 325 MG TAB PO PRN ×2 (04:36→20:47)
[2016-08-30] MEDS: ACCU-CHEK COMFORT CURVE STRIP VI SCH ×4 (05:59→23:57)
[2016-08-30] MEDS: InsuLIN REG 1unit/0.01ml Soln (100units/ml) SC SCH ×4 (05:59→23:57)
[2016-08-30] MEDS: FAMOTIDINE 20 MG TAB PO SCH ×3 (09:24→20:46)
[2016-08-30] MEDS: DIGOXIN 0.125 MG TAB PO SCH ×2 (09:27→09:54)
[2016-08-30] MEDS: BENAZEPRIL HCL 10 MG TAB PO SCH ×2 (09:27→09:43)
[2016-08-30] MEDS: SPIRONOLACTONE 25 MG TAB PO SCH ×2 (09:28→09:42)
[2016-08-30] MEDS: BUMETANIDE 1 MG TAB PO SCH ×2 (09:29→09:42)
[2016-08-30] MEDS: ENOXAPARIN SOD 30 MG/0.3 ML SYRINGE SC SCH (09:29)
[2016-08-30] MEDS: ONDANSETRON HCL 4 MG/2 ML VIAL IV PRN (14:11)
[2016-08-30 15:59] LABS: Hematocrit 23.2 % (36.0-46.0); Hemoglobin 7.4 g/dL (12.2-16.2)
[2016-08-30] MEDS: ATORVASTATIN 20 MG TAB PO SCH (20:46)
[2016-08-31] VITALS (7 sets, daily range): BP systolic 92–104; BP diastolic 51–66
[2016-08-31] MEDS ORDERED: diphenhdrAMINE HCL 25 MG CAP PO ONE (01:15)
[2016-08-31] MEDS: ACCU-CHEK COMFORT CURVE STRIP VI SCH ×3 (05:42→17:50)
[2016-08-31] MEDS: InsuLIN REG 1unit/0.01ml Soln (100units/ml) SC SCH ×3 (05:43→17:57)
[2016-08-31 05:53] LABS: Basophils # (auto) 0 uL; Basophils % (auto) 0.2 % (0.0-2.0); DEFINITIVE VIEW TRANSMISSION; Eosinophils # (auto) 0.1 uL; Eosinophils % (auto) 1.1 % (0.0-7.0); Hematocrit 25.8 % (36.0-46.0); Hemoglobin 8.1 g/dL (12.2-16.2); Lymphocytes # (auto) 0.7 uL; Lymphocytes % (auto) 15.3 % (10.0-50.0); Mean Corpuscular Hemoglobin 30.3 pg (28.0-32.0); Mean Corpuscular Hgb Conc. 31.4 g/dL (32.0-36.0); Mean Corpuscular Volume 96.6 fL (80.0-100.0); Mean Platelet Volume 7.4 fL (7.4-10.4); Monocytes # (auto) 0.5 uL; Monocytes % (auto) 10.6 % (0.0-12.0); Neutrophils # (auto) 3.5 uL; Neutrophils % (auto) 72.8 % (37.0-80.0); Platelet Count (auto) 123 10^3/uL (140-450); SUSPECT VIEW TRANSMISSION; White Blood Cell 4.8 10^3/uL (4.4-10.8)
[2016-08-31 06:15] LABS: Red Cell Distribution Width 25.2 % (11.6-16.0)
[2016-08-31 06:22] LABS: Albumin 2.9 g/dL (3.4-5.0); BUN/Creatinine Ratio 7.2; Bilirubin, Total 0.8 mg/dL (0.2-1.0); Calcium 7.9 mg/dL (8.5-10.1); Potassium 4.1 mmol/L (3.5-5.1); Total Protein 6.6 g/dL (6.4-8.2)
[2016-08-31 06:49] LABS: Anisocytosis Moderate; Basophilic Stippling FEW; Platelet Estimate Decreased
[2016-08-31] MEDS: BENAZEPRIL HCL 10 MG TAB PO SCH (10:00)
[2016-08-31] MEDS: FAMOTIDINE 20 MG TAB PO SCH ×2 (10:35→21:42)
[2016-08-31] MEDS: HYDROcodone-ACET 5/325MG TAB PO PRN ×2 (10:35→17:50)
[2016-08-31] MEDS: DIGOXIN 0.125 MG TAB PO SCH (10:37)
[2016-08-31] MEDS: SPIRONOLACTONE 25 MG TAB PO SCH (10:37)
[2016-08-31] MEDS: BUMETANIDE 1 MG TAB PO SCH (10:37)
[2016-08-31] MEDS: ENOXAPARIN SOD 30 MG/0.3 ML SYRINGE SC SCH (10:38)
[2016-08-31] MEDS: ONDANSETRON HCL 4 MG/2 ML VIAL IV PRN ×2 (10:38→17:50)
[2016-08-31] MEDS: ATORVASTATIN 20 MG TAB PO SCH (21:42)
[2016-09-01] VITALS (7 sets, daily range): BP systolic 81–125; BP diastolic 41–82
[2016-09-01] MEDS: InsuLIN REG 1unit/0.01ml Soln (100units/ml) SC SCH ×4 (06:00→18:00)
[2016-09-01] MEDS: ACCU-CHEK COMFORT CURVE STRIP VI SCH ×4 (06:18→18:00)
[2016-09-01 06:38] LABS: Basophils # (auto) 0 uL; Basophils % (auto) 0.2 % (0.0-2.0); DEFINITIVE VIEW TRANSMISSION; Eosinophils # (auto) 0 uL; Hematocrit 25.9 % (36.0-46.0); Hemoglobin 8.2 g/dL (12.2-16.2); Lymphocytes # (auto) 0.6 uL; Lymphocytes % (auto) 14.5 % (10.0-50.0); Mean Corpuscular Hemoglobin 30.6 pg (28.0-32.0); Mean Corpuscular Hgb Conc. 31.5 g/dL (32.0-36.0); Mean Corpuscular Volume 97.1 fL (80.0-100.0); Mean Platelet Volume 7.6 fL (7.4-10.4); Monocytes # (auto) 0.4 uL; Monocytes % (auto) 10.2 % (0.0-12.0); Neutrophils # (auto) 3.1 uL; Neutrophils % (auto) 74.1 % (37.0-80.0); Platelet Count (auto) 120 10^3/uL (140-450); White Blood Cell 4.2 10^3/uL (4.4-10.8)
[2016-09-01 06:41] LABS: Red Cell Distribution Width 24.8 % (11.6-16.0)
[2016-09-01 06:52] LABS: Potassium 4.4 mmol/L (3.5-5.1)
[2016-09-01 06:54] LABS: Anisocytosis Moderate; Basophilic Stippling FEW; Macrocytosis Slight
[2016-09-01 06:55] LABS: Polychromasia Slight
[2016-09-01 06:59] LABS: Albumin 2.8 g/dL (3.4-5.0); BUN/Creatinine Ratio 7.1
[2016-09-01 07:01] LABS: Bilirubin, Total 0.6 mg/dL (0.2-1.0); Total Protein 6.5 g/dL (6.4-8.2)
[2016-09-01 07:09] LABS: Platelet Estimate Decreased
[2016-09-01] MEDS ORDERED: EPOETIN ALFA 10,000 UNIT/1 ML VIAL IV ONE (08:00)
[2016-09-01] MEDS ORDERED: SODIUM CHL 0.9% 1000 ML BAG XX ONE (08:00)
[2016-09-01] MEDS: ENOXAPARIN SOD 30 MG/0.3 ML SYRINGE SC SCH (09:52)
[2016-09-01] MEDS: BUMETANIDE 1 MG TAB PO SCH (09:53)
[2016-09-01] MEDS: SPIRONOLACTONE 25 MG TAB PO SCH (09:54)
[2016-09-01] MEDS: BENAZEPRIL HCL 10 MG TAB PO SCH (09:59)
[2016-09-01] MEDS: FAMOTIDINE 20 MG TAB PO SCH (10:00)
[2016-09-01] MEDS: DIGOXIN 0.125 MG TAB PO SCH (10:00)
[2016-09-01] MEDS: HYDROcodone-ACET 5/325MG TAB PO PRN (10:13)
== END 2016-09-01 19:57 | disposition home or self-care (01) | DRG 198 ==
LOC: EDUNIT# 18:23 → EDBD 18:23 → ER 18:37 → TELE 18:38 → TELE-CENTR 08-30 03:37
PROVIDERS: ADMIT Nurse Practitioner; ATTEND Internal Medicine
PROC: 30233N1 Transfusion of Nonautologous Red Blood Cells into Peripheral Vein, Percutaneous Approach (ICD-10-PCS; principal; 2016-08-30)
DX: R07.9 Chest pain, unspecified (principal); I25.10 Atherosclerotic heart disease of native coronary artery without angina pectoris; I13.2 Hypertensive heart and chronic kidney disease with heart failure and with stage 5 chronic kidney disease, or end stage renal disease; E44.0 Moderate protein-calorie malnutrition; E11.21 Type 2 diabetes mellitus with diabetic nephropathy; N18.6 End stage renal disease; I50.9 Heart failure, unspecified; D63.8 Anemia in other chronic diseases classified elsewhere; J44.9 Chronic obstructive pulmonary disease, unspecified; G40.909 Epilepsy, unspecified, not intractable, without status epilepticus; H54.8 Legal blindness, as defined in USA; E11.22 Type 2 diabetes mellitus with diabetic chronic kidney disease; Z95.0 Presence of cardiac pacemaker; Z99.81 Dependence on supplemental oxygen; Z99.2 Dependence on renal dialysis; Z88.5 Allergy status to narcotic agent; Z88.0 Allergy status to penicillin; Z88.2 Allergy status to sulfonamides; Z91.041 Radiographic dye allergy status; Z68.33 Body mass index [BMI] 33.0-33.9, adult
CPT/HCPCS: 36415; 71010; 80053; 80162; 82962; 83735; 84484; 85014; 85018; 85025; 85610; 86850; 86900; 86901; 86920; 87081; 90935; 93005; 94761; J0885; J1642; J1815; J2405; J3480

== ENCOUNTER 2016-09-11 04:31 | Inpatient (IN) | payer MEDICAID ==
[~2016-09-11] VITALS: Ht 167.6 cm; Wt 96.9 kg
[2016-09-11] VITALS (23 sets, daily range): BP systolic 79–147; BP diastolic 39–93
[~2016-09-11 04:31] MED LIST changes: -BUME1TAB PO; -FAM20T PO; -[UNRECOGNIZED DRUG - CODE] PO
[2016-09-11 06:12] LABS: Basophils # (auto) 0 uL; Basophils % (auto) 0.5 % (0.0-2.0); DEFINITIVE VIEW TRANSMISSION; Eosinophils # (auto) 0.1 uL; Hematocrit 34.1 % (36.0-46.0); Hemoglobin 10.2 g/dL (12.2-16.2); Lymphocytes # (auto) 0.8 uL; Lymphocytes % (auto) 24.6 % (10.0-50.0); Mean Corpuscular Hemoglobin 31.3 pg (28.0-32.0); Mean Corpuscular Volume 104.6 fL (80.0-100.0); Mean Platelet Volume 7.1 fL (7.4-10.4); Monocytes # (auto) 0.4 uL; Monocytes % (auto) 12.8 % (0.0-12.0); Neutrophils # (auto) 1.9 uL; Neutrophils % (auto) 60.1 % (37.0-80.0); Platelet Count (auto) 87 10^3/uL (140-450); SUSPECT VIEW TRANSMISSION; White Blood Cell 3.1 10^3/uL (4.4-10.8)
[2016-09-11 06:28] LABS: Red Cell Distribution Width 25.4 % (11.6-16.0)
[2016-09-11 06:33] LABS: Albumin 3.3 g/dL (3.4-5.0); Anion Gap 9 (5-15); Blood Urea Nitrogen 40 mg/dL (7-18); Calcium 8.3 mg/dL (8.5-10.1); Carbon Dioxide 28 mmol/L (21-32); Chloride 101 mmol/L (98-107); Glucose 143 mg/dL (74-106); Magnesium 2.5 mg/dL (1.6-2.6); Potassium 5.3 mmol/L (3.5-5.1); Sodium 138 mmol/L (136-145)
[2016-09-11 06:33] LABS: Partial Thromboplastin Time 30.1 sec (22.64-33.71)
[2016-09-11 06:36] LABS: Aspartate Aminotransferase 29 U/L (15-37); BUN/Creatinine Ratio 5.6; GFR African American 7 mL/min; GFR Non-African American 6 mL/min
[2016-09-11 06:40] LABS: INR 1.18 (0.9-1.15); Prothrombin Time 12.7 sec (9.37-12.3)
[2016-09-11 06:41] LABS: Alkaline Phosphatase 129 U/L (45-117); Bilirubin, Total 0.6 mg/dL (0.2-1.0); Total Protein 7.5 g/dL (6.4-8.2)
[2016-09-11 06:50] LABS: Platelet Estimate Decreased
[2016-09-11 06:51] LABS: Anisocytosis Moderate; Macrocytosis Slight; Ovalocytes FEW
[2016-09-11] MEDS ORDERED: SUCCINYLCHOLINE CHLORIDE 20 MG/ML 10ML VIAL IV ONE (07:00)
[2016-09-11] MEDS ORDERED: ETOMIDATE (2MG/ML) 20ML VIAL IV ONE (07:00)
[2016-09-11] MEDS ORDERED: MIDAZOLAM DRIP 100 mg/100mL NS 100 ML IV ONE (07:07)
[2016-09-11 07:19] LABS: B-Type Natriuretic Peptide 3872.43 pg/mL (0-100); Temperature: 22.5 C (20.0-25.0)
[2016-09-11] MEDS: MIDAZOLAM DRIP 100 mg/100mL NS 100 ML IV SCH ×2 (08:12→21:06)
[2016-09-11] MEDS: NOREPINEPHRINE BITARTRATE 250 ML IV SCH (08:27)
[2016-09-11] MEDS ORDERED: MORPHINE SULF INJ 2 MG/ML SYRINGE 1ML IV PRN (09:15)
[2016-09-11] MEDS ORDERED: NITROGLYCERIN 0.4 MG SL TAB SL PRN (09:15)
[2016-09-11] MEDS ORDERED: DEXTROSE (50%) 50ML SYRG IV PRN (09:15)
[2016-09-11] MEDS ORDERED: ALBUTEROL SULF 2.5 MG/0.5ML(0.5%) NEB SOLN NEB PRN (09:15)
[2016-09-11] MEDS ORDERED: LEVOFLOXACIN 500MG 100 ML IV ONE (09:30)
[2016-09-11] MEDS: PANTOPRAZOLE SODIUM 40 MG/10 ML VIAL IV SCH (09:43)
[2016-09-11] MEDS: ENOXAPARIN SOD 30 MG/0.3 ML SYRINGE SC SCH (09:43)
[2016-09-11] MEDS ORDERED: VANCOMYCIN PER PHARMACY 0 MG IV SCH (10:00)
[2016-09-11] MEDS: InsuLIN REG 1unit/0.01ml Soln (100units/ml) SC SCH ×2 (12:00→18:00)
[2016-09-11] MEDS ORDERED: VANCOMYCIN 1GM/250ML D5W 250 ML IV ONE (12:00)
[2016-09-11] MEDS: ACCU-CHEK COMFORT CURVE STRIP VI SCH ×2 (12:17→18:00)
[2016-09-11] MEDS: IPRATROPIUM BROM 0.5 MG/2.5ML INH SOL NEB SCH ×2 (13:08→23:40)
[2016-09-11] MEDS: ALBUTEROL SULF 2.5 MG/0.5ML(0.5%) NEB SOLN NEB SCH ×2 (13:08→23:40)
[2016-09-11] MEDS ORDERED: fentaNYL Drip 2500mCg/250mlNS 250 ML IV ONE (21:58)
[2016-09-11] MEDS: fentaNYL Drip 2500mCg/250mlNS 250 ML IV SCH (22:10)
[2016-09-12] VITALS (57 sets, daily range): BP systolic 93–138; BP diastolic 25–101
[2016-09-12] MEDS: NOREPINEPHRINE BITARTRATE 250 ML IV SCH (03:49)
[2016-09-12 03:57] LABS: Basophils # (auto) 0 uL; Basophils % (auto) 0.2 % (0.0-2.0); DEFINITIVE VIEW TRANSMISSION; Eosinophils # (auto) 0.1 uL; Eosinophils % (auto) 1.2 % (0.0-7.0); Hematocrit 29.9 % (36.0-46.0); Hemoglobin 9.4 g/dL (12.2-16.2); Lymphocytes # (auto) 0.7 uL; Lymphocytes % (auto) 13.1 % (10.0-50.0); Mean Corpuscular Hemoglobin 31.3 pg (28.0-32.0); Mean Corpuscular Hgb Conc. 31.6 g/dL (32.0-36.0); Mean Corpuscular Volume 98.9 fL (80.0-100.0); Mean Platelet Volume 7.2 fL (7.4-10.4); Monocytes # (auto) 0.6 uL; Monocytes % (auto) 11.8 % (0.0-12.0); Neutrophils % (auto) 73.7 % (37.0-80.0); Platelet Count (auto) 107 10^3/uL (140-450); SUSPECT VIEW TRANSMISSION; White Blood Cell 5.4 10^3/uL (4.4-10.8)
[2016-09-12 04:30] LABS: Albumin 2.2 g/dL (3.4-5.0); BUN/Creatinine Ratio 6.5; Bilirubin, Total 0.9 mg/dL (0.2-1.0); Calcium 8.1 mg/dL (8.5-10.1); Potassium 4.8 mmol/L (3.5-5.1); Total Protein 5.7 g/dL (6.4-8.2)
[2016-09-12 04:40] LABS: Red Cell Distribution Width 25.3 % (11.6-16.0)
[2016-09-12 04:45] LABS: Temperature: 22.7 C (20.0-25.0)
[2016-09-12 05:23] LABS: Anisocytosis Moderate; Platelet Estimate Decreased
[2016-09-12 05:24] LABS: Ovalocytes FEW
[2016-09-12 05:25] LABS: Macrocytosis Slight
[2016-09-12] MEDS: ACCU-CHEK COMFORT CURVE STRIP VI SCH ×4 (06:00→18:05)
[2016-09-12] MEDS: InsuLIN REG 1unit/0.01ml Soln (100units/ml) SC SCH ×4 (06:00→18:00)
[2016-09-12] MEDS: IPRATROPIUM BROM 0.5 MG/2.5ML INH SOL NEB SCH ×3 (07:11→18:07)
[2016-09-12] MEDS: ALBUTEROL SULF 2.5 MG/0.5ML(0.5%) NEB SOLN NEB SCH ×3 (07:11→18:07)
[2016-09-12] MEDS: LEVOFLOXACIN 250MG 50 ML IV SCH (10:05)
[2016-09-12] MEDS: PANTOPRAZOLE SODIUM 40 MG/10 ML VIAL IV SCH (10:05)
[2016-09-12] MEDS: ENOXAPARIN SOD 30 MG/0.3 ML SYRINGE SC SCH (10:05)
[2016-09-12] MEDS ORDERED: EPOETIN ALFA 10,000 UNIT/1 ML VIAL IV ONE (10:45)
[2016-09-12] MEDS ORDERED: SODIUM CHL 0.9% 1000 ML BAG XX ONE (10:45)
[2016-09-12] MEDS ORDERED: VANCOMYCIN 1GM/250ML D5W 250 ML IV ONE (12:00)
[2016-09-12] MEDS ORDERED: BUME1TAB PO (13:20)
[2016-09-12] MEDS ORDERED: CIME200T6 PO (13:20)
[2016-09-12] MEDS ORDERED: FAMO40TA49 PO (13:20)
[2016-09-12] MEDS: fentaNYL Drip 2500mCg/250mlNS 250 ML IV SCH (21:49)
[2016-09-13] VITALS (98 sets, daily range): BP systolic 89–143; BP diastolic 46–86
[2016-09-13] MEDS: ALBUTEROL SULF 2.5 MG/0.5ML(0.5%) NEB SOLN NEB SCH ×4 (00:06→18:00)
[2016-09-13] MEDS: IPRATROPIUM BROM 0.5 MG/2.5ML INH SOL NEB SCH ×4 (00:06→18:00)
[2016-09-13] MEDS: MIDAZOLAM DRIP 100 mg/100mL NS 100 ML IV SCH ×3 (02:30→21:50)
[2016-09-13 05:48] LABS: Basophils # (auto) 0 uL; Basophils % (auto) 0.1 % (0.0-2.0); DEFINITIVE VIEW TRANSMISSION; Eosinophils # (auto) 0.1 uL; Hemoglobin 8.9 g/dL (12.2-16.2); Lymphocytes # (auto) 0.3 uL; Lymphocytes % (auto) 5.6 % (10.0-50.0); Mean Corpuscular Hemoglobin 31.2 pg (28.0-32.0); Mean Corpuscular Hgb Conc. 31.9 g/dL (32.0-36.0); Monocytes # (auto) 0.4 uL; Monocytes % (auto) 7.8 % (0.0-12.0); Neutrophils # (auto) 4.8 uL; Neutrophils % (auto) 85.5 % (37.0-80.0); Platelet Count (auto) 92 10^3/uL (140-450); White Blood Cell 5.6 10^3/uL (4.4-10.8)
[2016-09-13 05:53] LABS: Red Cell Distribution Width 24.9 % (11.6-16.0)
[2016-09-13] MEDS: InsuLIN REG 1unit/0.01ml Soln (100units/ml) SC SCH ×5 (06:00→23:27)
[2016-09-13] MEDS: ACCU-CHEK COMFORT CURVE STRIP VI SCH ×5 (06:00→23:29)
[2016-09-13 06:15] LABS: Albumin 2.4 g/dL (3.4-5.0); BUN/Creatinine Ratio 6.4; Bilirubin, Total 0.9 mg/dL (0.2-1.0); Calcium 7.9 mg/dL (8.5-10.1); Potassium 4.6 mmol/L (3.5-5.1); Total Protein 5.7 g/dL (6.4-8.2)
[2016-09-13 06:49] LABS: Anisocytosis Slight; Platelet Estimate Decreased
[2016-09-13] MEDS: NOREPINEPHRINE BITARTRATE 250 ML IV SCH (07:30)
[2016-09-13] MEDS ORDERED: SODIUM CHL 0.9% 1000 ML BAG XX ONE (10:15)
[2016-09-13] MEDS ORDERED: EPOETIN ALFA 10,000 UNIT/1 ML VIAL IV ONE (10:15)
[2016-09-13] MEDS: MUPIROCIN 2% OINT 22GM EACHNOSTRI SCH ×2 (10:49→22:00)
[2016-09-13] MEDS: PANTOPRAZOLE SODIUM 40 MG/10 ML VIAL IV SCH (10:50)
[2016-09-13] MEDS: ENOXAPARIN SOD 30 MG/0.3 ML SYRINGE SC SCH (10:50)
[2016-09-13] MEDS ORDERED: VANCOMYCIN 500 MG in D5W 5% 100 ML IV ONE (14:00)
[2016-09-13] MEDS ORDERED: Novasource Renal 1 Liter GT SCH (15:45)
[2016-09-13] MEDS: FREE WATER GT SCH (17:19)
[2016-09-13] MEDS: fentaNYL Drip 2500mCg/250mlNS 250 ML IV SCH (21:49)
[2016-09-14] VITALS (102 sets, daily range): BP systolic 79–129; BP diastolic 38–75
[2016-09-14] MEDS: IPRATROPIUM BROM 0.5 MG/2.5ML INH SOL NEB SCH ×4 (00:20→18:47)
[2016-09-14] MEDS: ALBUTEROL SULF 2.5 MG/0.5ML(0.5%) NEB SOLN NEB SCH ×4 (00:20→18:48)
[2016-09-14 04:16] LABS: BUN/Creatinine Ratio 7.1; Calcium 7.5 mg/dL (8.5-10.1); Potassium 4.7 mmol/L (3.5-5.1)
[2016-09-14] MEDS: ENOXAPARIN SOD 30 MG/0.3 ML SYRINGE SC SCH (10:00)
[2016-09-14] MEDS: LEVOFLOXACIN 250MG 50 ML IV SCH (10:04)
[2016-09-14] MEDS: MUPIROCIN 2% OINT 22GM EACHNOSTRI SCH ×2 (10:04→22:00)
[2016-09-14] MEDS: PANTOPRAZOLE SODIUM 40 MG/10 ML VIAL IV SCH (10:04)
[2016-09-14] MEDS ORDERED: SODIUM CHL 0.9% 1000 ML BAG XX ONE (10:45)
[2016-09-14] MEDS ORDERED: EPOETIN ALFA 10,000 UNIT/1 ML VIAL IV ONE (10:45)
[2016-09-14] MEDS: InsuLIN REG 1unit/0.01ml Soln (100units/ml) SC SCH ×2 (12:00→18:00)
[2016-09-14] MEDS: FREE WATER GT SCH ×3 (12:00→18:00)
[2016-09-14] MEDS: ACCU-CHEK COMFORT CURVE STRIP VI SCH ×2 (12:00→18:00)
[2016-09-14] MEDS ORDERED: VANCOMYCIN 1GM/250ML D5W 250 ML IV ONE (16:00)
[2016-09-14] MEDS: MIDAZOLAM DRIP 100 mg/100mL NS 100 ML IV SCH (18:26)
[2016-09-14] MEDS: fentaNYL Drip 2500mCg/250mlNS 250 ML IV SCH (21:49)
[2016-09-15] VITALS (94 sets, daily range): BP systolic 65–138; BP diastolic 32–77
[2016-09-15] MEDS: IPRATROPIUM BROM 0.5 MG/2.5ML INH SOL NEB SCH ×4 (00:05→17:58)
[2016-09-15] MEDS: ALBUTEROL SULF 2.5 MG/0.5ML(0.5%) NEB SOLN NEB SCH ×4 (00:05→17:58)
[2016-09-15 04:10] LABS: Basophils # (auto) 0 uL; DEFINITIVE VIEW TRANSMISSION; Eosinophils # (auto) 0.2 uL; Eosinophils % (auto) 4.4 % (0.0-7.0); Hematocrit 27.7 % (36.0-46.0); Hemoglobin 8.8 g/dL (12.2-16.2); Lymphocytes # (auto) 0.4 uL; Mean Corpuscular Hgb Conc. 31.8 g/dL (32.0-36.0); Mean Corpuscular Volume 97.4 fL (80.0-100.0); Mean Platelet Volume 7.4 fL (7.4-10.4); Monocytes # (auto) 0.5 uL; Monocytes % (auto) 9.8 % (0.0-12.0); Neutrophils # (auto) 3.7 uL; Neutrophils % (auto) 76.8 % (37.0-80.0); Platelet Count (auto) 100 10^3/uL (140-450); White Blood Cell 4.8 10^3/uL (4.4-10.8)
[2016-09-15 04:24] LABS: BUN/Creatinine Ratio 7.7; Calcium 7.6 mg/dL (8.5-10.1); Potassium 4.4 mmol/L (3.5-5.1)
[2016-09-15 04:26] LABS: Bilirubin, Total 0.7 mg/dL (0.2-1.0); Total Protein 4.9 g/dL (6.4-8.2)
[2016-09-15 04:48] LABS: Red Cell Distribution Width 24.6 % (11.6-16.0)
[2016-09-15 05:21] LABS: Anisocytosis Slight; Ovalocytes FEW; Platelet Estimate Decreased
[2016-09-15] MEDS: ACCU-CHEK COMFORT CURVE STRIP VI SCH ×4 (06:00→18:00)
[2016-09-15] MEDS: InsuLIN REG 1unit/0.01ml Soln (100units/ml) SC SCH ×4 (06:00→18:00)
[2016-09-15] MEDS: NOREPINEPHRINE BITARTRATE 250 ML IV SCH ×3 (07:30→22:00)
[2016-09-15] MEDS: MIDAZOLAM DRIP 100 mg/100mL NS 100 ML IV SCH (08:50)
[2016-09-15] MEDS: ALBUMIN 25% 100 ML IV PRN (09:08)
[2016-09-15] MEDS: MUPIROCIN 2% OINT 22GM EACHNOSTRI SCH ×2 (10:00→22:00)
[2016-09-15] MEDS: ENOXAPARIN SOD 30 MG/0.3 ML SYRINGE SC SCH (10:00)
[2016-09-15] MEDS: FREE WATER GT SCH ×3 (12:00→18:00)
[2016-09-15] MEDS: PANTOPRAZOLE SODIUM 40 MG/10 ML VIAL IV SCH (12:22)
[2016-09-15] MEDS ORDERED: VANCOMYCIN 1GM/250ML D5W 250 ML IV ONE (14:00)
[2016-09-15] MEDS: VANCOMYCIN HCL 125MG/5ML ORAL SOL GT SCH ×2 (18:34→22:00)
[2016-09-15] MEDS: metroNIDAZOLE 500 MG TAB PO SCH (18:34)
[2016-09-15 19:44] LABS: Allen Test Modified; Base Excess 3.5 mmol/L (-2.0-2.0); Blood 02Sat 94.3 % (96-100); Blood AaDO2 78.2 mmHg (<26.0); Blood MetHb 0.3 % (0.0-1.5); MODE VENT - A/C; PCO2 48.3 mmHg (35.0-45.0); Sample Type Arterial; pH 7.396 (7.350-7.450)
[2016-09-15] MEDS: fentaNYL Drip 2500mCg/250mlNS 250 ML IV SCH (22:00)
[2016-09-16] VITALS (74 sets, daily range): BP systolic 80–127; BP diastolic 39–68
[2016-09-16] MEDS: ALBUTEROL SULF 2.5 MG/0.5ML(0.5%) NEB SOLN NEB SCH ×4 (00:10→18:50)
[2016-09-16] MEDS: IPRATROPIUM BROM 0.5 MG/2.5ML INH SOL NEB SCH ×4 (00:10→18:50)
[2016-09-16 04:06] LABS: Albumin 2.1 g/dL (3.4-5.0); Calcium 7.5 mg/dL (8.5-10.1); Potassium 4.2 mmol/L (3.5-5.1)
[2016-09-16 04:09] LABS: Bilirubin, Total 0.5 mg/dL (0.2-1.0)
[2016-09-16 04:24] LABS: Basophils # (auto) 0 uL; Basophils % (auto) 0.1 % (0.0-2.0); DEFINITIVE VIEW TRANSMISSION; Eosinophils # (auto) 0.3 uL; Eosinophils % (auto) 4.9 % (0.0-7.0); Hemoglobin 8.6 g/dL (12.2-16.2); Lymphocytes # (auto) 0.6 uL; Lymphocytes % (auto) 10.9 % (10.0-50.0); Mean Corpuscular Hemoglobin 31.1 pg (28.0-32.0); Mean Corpuscular Volume 97.2 fL (80.0-100.0); Mean Platelet Volume 7.4 fL (7.4-10.4); Monocytes # (auto) 0.6 uL; Monocytes % (auto) 11.8 % (0.0-12.0); Neutrophils # (auto) 3.7 uL; Neutrophils % (auto) 72.3 % (37.0-80.0); Platelet Count (auto) 91 10^3/uL (140-450); Red Cell Distribution Width 24.3 % (11.6-16.0); SUSPECT VIEW TRANSMISSION; White Blood Cell 5.1 10^3/uL (4.4-10.8)
[2016-09-16 04:48] LABS: Platelet Estimate Decreased
[2016-09-16 04:49] LABS: Anisocytosis Slight; Ovalocytes FEW
[2016-09-16] MEDS: FREE WATER GT SCH ×4 (06:00→18:14)
[2016-09-16] MEDS: ACCU-CHEK COMFORT CURVE STRIP VI SCH ×4 (06:00→18:00)
[2016-09-16] MEDS: VANCOMYCIN HCL 125MG/5ML ORAL SOL GT SCH ×4 (06:00→22:15)
[2016-09-16] MEDS: InsuLIN REG 1unit/0.01ml Soln (100units/ml) SC SCH ×4 (06:00→18:00)
[2016-09-16] MEDS: metroNIDAZOLE 500 MG TAB PO SCH ×4 (06:00→18:00)
[2016-09-16 07:27] LABS: Allen Test Modified; Base Excess 2.7 mmol/L (-2.0-2.0); Blood 02Sat 94.7 % (96-100); Blood AaDO2 83.4 mmHg (<26.0); Blood MetHb 0.4 % (0.0-1.5); HCO3 27.6 mmol/L (22-26.0); MODE VAPOTHERM; PCO2 44.1 mmHg (35.0-45.0); PIP 16; Sample Type Arterial; pH 7.415 (7.350-7.450)
[2016-09-16] MEDS: PANTOPRAZOLE SODIUM 40 MG/10 ML VIAL IV SCH (10:14)
[2016-09-16] MEDS: MUPIROCIN 2% OINT 22GM EACHNOSTRI SCH ×2 (10:14→22:09)
[2016-09-16] MEDS: LEVOFLOXACIN 250MG 50 ML IV SCH (10:14)
[2016-09-16] MEDS: ENOXAPARIN SOD 30 MG/0.3 ML SYRINGE SC SCH (10:15)
[2016-09-16] MEDS ORDERED: SODIUM CHL 0.9% 1000 ML BAG XX ONE (10:15)
[2016-09-16] MEDS ORDERED: EPOETIN ALFA 10,000 UNIT/1 ML VIAL IV ONE (10:15)
[2016-09-16 10:44] LABS: PO2 78.7 mmHg (80.0-100.0)
[2016-09-16 10:47] LABS: O2Hb 93.4 % (94.0-97.0)
[2016-09-16 10:48] LABS: O2Hb 93.1 % (94.0-97.0)
[2016-09-16 10:56] LABS: HHb 5.6 % (0.0-5.0)
[2016-09-16] MEDS ORDERED: metroNIDAZOLE 500 MG TAB ONE (11:39)
[2016-09-16 14:42] LABS: INR 1.07 (0.9-1.15); Prothrombin Time 11.6 sec (9.37-12.3)
[2016-09-16] MEDS: fentaNYL Drip 2500mCg/250mlNS 250 ML IV SCH (22:14)
[2016-09-17] VITALS (53 sets, daily range): BP systolic 87–121; BP diastolic 43–67
[2016-09-17] MEDS: IPRATROPIUM BROM 0.5 MG/2.5ML INH SOL NEB SCH ×4 (00:15→18:27)
[2016-09-17] MEDS: ALBUTEROL SULF 2.5 MG/0.5ML(0.5%) NEB SOLN NEB SCH ×4 (00:15→18:27)
[2016-09-17 04:21] LABS: Basophils # (auto) 0 uL; Basophils % (auto) 0.1 % (0.0-2.0); DEFINITIVE VIEW TRANSMISSION; Eosinophils # (auto) 0.1 uL; Eosinophils % (auto) 3.3 % (0.0-7.0); Hematocrit 24.8 % (36.0-46.0); Lymphocytes # (auto) 0.4 uL; Lymphocytes % (auto) 10.5 % (10.0-50.0); Mean Corpuscular Hemoglobin 31.3 pg (28.0-32.0); Mean Corpuscular Hgb Conc. 32.1 g/dL (32.0-36.0); Mean Corpuscular Volume 97.5 fL (80.0-100.0); Mean Platelet Volume 7.5 fL (7.4-10.4); Monocytes # (auto) 0.3 uL; Monocytes % (auto) 10.3 % (0.0-12.0); Neutrophils # (auto) 2.6 uL; Neutrophils % (auto) 75.8 % (37.0-80.0); Platelet Count (auto) 68 10^3/uL (140-450); White Blood Cell 3.4 10^3/uL (4.4-10.8)
[2016-09-17 04:25] LABS: INR 1.07 (0.9-1.15); Partial Thromboplastin Time 32.5 sec (22.64-33.71); Prothrombin Time 11.6 sec (9.37-12.3)
[2016-09-17 04:26] LABS: Red Cell Distribution Width 23.6 % (11.6-16.0)
[2016-09-17 04:32] LABS: Albumin 2.2 g/dL (3.4-5.0); Calcium 7.6 mg/dL (8.5-10.1); Potassium 4.2 mmol/L (3.5-5.1)
[2016-09-17 04:34] LABS: BUN/Creatinine Ratio 8.8
[2016-09-17 04:37] LABS: Bilirubin, Total 0.5 mg/dL (0.2-1.0); Total Protein 4.7 g/dL (6.4-8.2)
[2016-09-17 05:10] LABS: Anisocytosis Slight; Ovalocytes FEW; Platelet Estimate Decreased
[2016-09-17] MEDS: FREE WATER GT SCH ×5 (05:22→23:13)
[2016-09-17] MEDS: VANCOMYCIN HCL 125MG/5ML ORAL SOL GT SCH ×4 (05:23→21:42)
[2016-09-17] MEDS: metroNIDAZOLE 500 MG TAB PO SCH ×3 (05:23→12:00)
[2016-09-17] MEDS: ACCU-CHEK COMFORT CURVE STRIP VI SCH ×5 (05:40→23:45)
[2016-09-17] MEDS: InsuLIN REG 1unit/0.01ml Soln (100units/ml) SC SCH ×5 (05:41→23:44)
[2016-09-17] MEDS: NOREPINEPHRINE BITARTRATE 250 ML IV SCH (07:30)
[2016-09-17] MEDS: MIDAZOLAM DRIP 100 mg/100mL NS 100 ML IV SCH (07:38)
[2016-09-17] MEDS: ENOXAPARIN SOD 30 MG/0.3 ML SYRINGE SC SCH (10:00)
[2016-09-17] MEDS: MUPIROCIN 2% OINT 22GM EACHNOSTRI SCH ×2 (10:00→21:39)
[2016-09-17] MEDS: PANTOPRAZOLE SODIUM 40 MG/10 ML VIAL IV SCH (10:17)
[2016-09-17] MEDS ORDERED: LIDOCAINE 2%HCL (LOCAL ANESTH.) INJ 20ML MDV ONE (12:57)
[2016-09-17] MEDS ORDERED: HEPARIN SODIUM (PORCINE) 5000 UNITS/ML 1ML VIAL ONE (13:17)
[2016-09-17] MEDS ORDERED: HEPARIN 1,000 UNITS/ml 1ML VIAL ONE (13:20)
[2016-09-17] MEDS ORDERED: VANCOMYCIN 1GM/250ML D5W 250 ML IV ONE (14:00)
[2016-09-17] MEDS: ALBUMIN 25% 100 ML IV PRN (19:24)
[2016-09-17] MEDS: fentaNYL Drip 2500mCg/250mlNS 250 ML IV SCH (22:00)
[2016-09-18] VITALS (39 sets, daily range): BP systolic 80–118; BP diastolic 40–69
[2016-09-18] MEDS: IPRATROPIUM BROM 0.5 MG/2.5ML INH SOL NEB SCH ×4 (00:13→18:36)
[2016-09-18] MEDS: ALBUTEROL SULF 2.5 MG/0.5ML(0.5%) NEB SOLN NEB SCH ×4 (00:13→18:36)
[2016-09-18 03:58] LABS: Basophils # (auto) 0 uL; Basophils % (auto) 0.2 % (0.0-2.0); DEFINITIVE VIEW TRANSMISSION; Eosinophils # (auto) 0.1 uL; Eosinophils % (auto) 3.8 % (0.0-7.0); Hematocrit 22.8 % (36.0-46.0); Hemoglobin 7.4 g/dL (12.2-16.2); Lymphocytes # (auto) 0.4 uL; Lymphocytes % (auto) 12.6 % (10.0-50.0); Mean Corpuscular Hemoglobin 31.4 pg (28.0-32.0); Mean Corpuscular Hgb Conc. 32.3 g/dL (32.0-36.0); Mean Corpuscular Volume 97.2 fL (80.0-100.0); Mean Platelet Volume 7.1 fL (7.4-10.4); Monocytes # (auto) 0.3 uL; Monocytes % (auto) 11.1 % (0.0-12.0); Neutrophils # (auto) 2.2 uL; Neutrophils % (auto) 72.3 % (37.0-80.0); Platelet Count (auto) 74 10^3/uL (140-450)
[2016-09-18 04:07] LABS: Red Cell Distribution Width 23.4 % (11.6-16.0)
[2016-09-18 04:22] LABS: Albumin 2.4 g/dL (3.4-5.0); BUN/Creatinine Ratio 8.6; Bilirubin, Total 0.5 mg/dL (0.2-1.0); Calcium 7.4 mg/dL (8.5-10.1); Potassium 4.1 mmol/L (3.5-5.1); Total Protein 4.9 g/dL (6.4-8.2)
[2016-09-18 04:54] LABS: Platelet Estimate Decreased
[2016-09-18 04:55] LABS: Anisocytosis Moderate; Basophilic Stippling FEW; Ovalocytes FEW; Polychromasia Slight
[2016-09-18] MEDS: FREE WATER GT SCH ×3 (05:56→18:20)
[2016-09-18] MEDS: VANCOMYCIN HCL 125MG/5ML ORAL SOL GT SCH ×4 (05:57→21:33)
[2016-09-18] MEDS: ACCU-CHEK COMFORT CURVE STRIP VI SCH ×3 (05:57→18:40)
[2016-09-18] MEDS: InsuLIN REG 1unit/0.01ml Soln (100units/ml) SC SCH ×3 (06:00→18:40)
[2016-09-18] MEDS: metroNIDAZOLE 500 MG TAB PO SCH ×4 (06:01→18:20)
[2016-09-18] MEDS: NOREPINEPHRINE BITARTRATE 250 ML IV SCH (07:30)
[2016-09-18] MEDS: MIDAZOLAM DRIP 100 mg/100mL NS 100 ML IV SCH (07:38)
[2016-09-18] MEDS: PANTOPRAZOLE SODIUM 40 MG/10 ML VIAL IV SCH (09:58)
[2016-09-18] MEDS: ENOXAPARIN SOD 30 MG/0.3 ML SYRINGE SC SCH (09:58)
[2016-09-18] MEDS: LEVOFLOXACIN 250MG 50 ML IV SCH (09:58)
[2016-09-18] MEDS ORDERED: VANCOMYCIN 500 MG in D5W 5% 100 ML IV ONE (14:00)
[2016-09-18 16:16] LABS: Allen Test Yes; Base Excess 1.3 mmol/L (-2.0-2.0); Blood 02Sat 91.9 % (96-100); Blood COHb 1.1 % (0.5-1.5); Blood MetHb 0.2 % (0.0-1.5); HCO3 26.1 mmol/L (22-26.0); MODE VENT - A/C; O2Hb 90.7 % (94.0-97.0); PCO2 42.2 mmHg (35.0-45.0); PCO2(T) 42.2 mmHg (35.0-45.0); PO2 64.8 mmHg (80.0-100.0); PO2(T) 64.8 mmHg (80.0-100.0); Sample Type Arterial; pH 7.409 (7.350-7.450)
[2016-09-18] MEDS: fentaNYL Drip 2500mCg/250mlNS 250 ML IV SCH (21:33)
[2016-09-19] VITALS (41 sets, daily range): BP systolic 83–126; BP diastolic 38–100
[2016-09-19] MEDS: FREE WATER GT SCH ×5 (00:09→23:59)
[2016-09-19] MEDS: metroNIDAZOLE 500 MG TAB PO SCH ×5 (00:10→23:59)
[2016-09-19] MEDS: ACCU-CHEK COMFORT CURVE STRIP VI SCH ×4 (00:11→18:04)
[2016-09-19] MEDS: IPRATROPIUM BROM 0.5 MG/2.5ML INH SOL NEB SCH ×4 (00:34→18:16)
[2016-09-19] MEDS: ALBUTEROL SULF 2.5 MG/0.5ML(0.5%) NEB SOLN NEB SCH ×4 (00:34→18:16)
[2016-09-19 04:00] LABS: Basophils # (auto) 0 uL; Basophils % (auto) 0.7 % (0.0-2.0); DEFINITIVE VIEW TRANSMISSION; Eosinophils # (auto) 0.1 uL; Eosinophils % (auto) 4.5 % (0.0-7.0); Hematocrit 22.9 % (36.0-46.0); Hemoglobin 7.5 g/dL (12.2-16.2); Lymphocytes # (auto) 0.5 uL; Lymphocytes % (auto) 17.9 % (10.0-50.0); Mean Corpuscular Hemoglobin 31.4 pg (28.0-32.0); Mean Corpuscular Hgb Conc. 32.7 g/dL (32.0-36.0); Mean Corpuscular Volume 96.2 fL (80.0-100.0); Mean Platelet Volume 7.4 fL (7.4-10.4); Monocytes # (auto) 0.4 uL; Monocytes % (auto) 14.4 % (0.0-12.0); Neutrophils # (auto) 1.7 uL; Neutrophils % (auto) 62.5 % (37.0-80.0); Platelet Count (auto) 71 10^3/uL (140-450); White Blood Cell 2.7 10^3/uL (4.4-10.8)
[2016-09-19 04:01] LABS: Red Cell Distribution Width 21.1 % (11.6-16.0)
[2016-09-19 04:17] LABS: Albumin 2.2 g/dL (3.4-5.0); Bilirubin, Total 0.6 mg/dL (0.2-1.0); Calcium 7.6 mg/dL (8.5-10.1); Total Protein 4.7 g/dL (6.4-8.2)
[2016-09-19 04:25] LABS: Anisocytosis Slight; Platelet Estimate Decreased; Stomatocytes Few
[2016-09-19 04:26] LABS: Polychromasia Slight
[2016-09-19] MEDS: VANCOMYCIN HCL 125MG/5ML ORAL SOL GT SCH ×4 (05:49→22:24)
[2016-09-19] MEDS: InsuLIN REG 1unit/0.01ml Soln (100units/ml) SC SCH ×4 (05:50→18:00)
[2016-09-19] MEDS: NOREPINEPHRINE BITARTRATE 250 ML IV SCH (07:30)
[2016-09-19] MEDS: MIDAZOLAM DRIP 100 mg/100mL NS 100 ML IV SCH (07:38)
[2016-09-19] MEDS: HEPARIN SODIUM (PORCINE) 5000 UNITS/ML 1ML VIAL SC SCH ×2 (10:00→22:25)
[2016-09-19 10:36] LABS: Allen Test Yes; Base Excess -1.1 mmol/L (-2.0-2.0); Blood 02Sat 88.1 % (96-100); Blood COHb 1.3 % (0.5-1.5); Blood MetHb 0.4 % (0.0-1.5); HCO3 24.4 mmol/L (22-26.0); HHb 11.7 % (0.0-5.0); MODE T-PIECE; O2Hb 86.6 % (94.0-97.0); PCO2 44.5 mmHg (35.0-45.0); PCO2(T) 44.5 mmHg (35.0-45.0); PO2 60.2 mmHg (80.0-100.0); PO2(T) 60.2 mmHg (80.0-100.0); Sample Type Arterial; pH 7.357 (7.350-7.450)
[2016-09-19] MEDS: PANTOPRAZOLE SODIUM 40 MG/10 ML VIAL IV SCH (11:28)
[2016-09-19] MEDS ORDERED: SODIUM CHL 0.9% 1000 ML BAG XX ONE (13:00)
[2016-09-19] MEDS ORDERED: VANCOMYCIN 500 MG in D5W 5% 100 ML IV ONE ×2 (15:15→20:00)
[2016-09-19] MEDS: fentaNYL Drip 2500mCg/250mlNS 250 ML IV SCH (21:49)
[2016-09-19] MEDS ORDERED: PROPOFOL 100 ML IV ONE (23:16)
[2016-09-20] VITALS (101 sets, daily range): BP systolic 69–140; BP diastolic 37–89
[2016-09-20] MEDS: ALBUTEROL SULF 2.5 MG/0.5ML(0.5%) NEB SOLN NEB SCH ×4 (00:27→18:24)
[2016-09-20] MEDS: IPRATROPIUM BROM 0.5 MG/2.5ML INH SOL NEB SCH ×4 (00:27→18:24)
[2016-09-20 04:48] LABS: Basophils # (auto) 0 uL; Basophils % (auto) 0.3 % (0.0-2.0); DEFINITIVE VIEW TRANSMISSION; Eosinophils # (auto) 0.1 uL; Eosinophils % (auto) 3.7 % (0.0-7.0); Hematocrit 28.2 % (36.0-46.0); Hemoglobin 9.4 g/dL (12.2-16.2); Lymphocytes # (auto) 0.5 uL; Lymphocytes % (auto) 18.1 % (10.0-50.0); Mean Corpuscular Hemoglobin 31.7 pg (28.0-32.0); Mean Corpuscular Hgb Conc. 33.4 g/dL (32.0-36.0); Mean Corpuscular Volume 94.8 fL (80.0-100.0); Mean Platelet Volume 7.3 fL (7.4-10.4); Monocytes # (auto) 0.4 uL; Monocytes % (auto) 13.6 % (0.0-12.0); Neutrophils # (auto) 1.9 uL; Neutrophils % (auto) 64.3 % (37.0-80.0); Platelet Count (auto) 97 10^3/uL (140-450); White Blood Cell 2.9 10^3/uL (4.4-10.8)
[2016-09-20 05:02] LABS: Calcium 7.8 mg/dL (8.5-10.1); Potassium 3.9 mmol/L (3.5-5.1)
[2016-09-20 05:11] LABS: Albumin 2.4 g/dL (3.4-5.0); BUN/Creatinine Ratio 8.7; Bilirubin, Total 0.6 mg/dL (0.2-1.0); Total Protein 5.5 g/dL (6.4-8.2)
[2016-09-20 05:18] LABS: Anisocytosis Moderate; Ovalocytes FEW; Platelet Estimate Decreased
[2016-09-20 05:19] LABS: Stomatocytes Few
[2016-09-20] MEDS: FREE WATER GT SCH ×3 (05:57→17:51)
[2016-09-20] MEDS: metroNIDAZOLE 500 MG TAB PO SCH ×3 (05:57→17:50)
[2016-09-20] MEDS: VANCOMYCIN HCL 125MG/5ML ORAL SOL GT SCH ×4 (05:57→21:38)
[2016-09-20] MEDS: InsuLIN REG 1unit/0.01ml Soln (100units/ml) SC SCH ×4 (06:00→17:51)
[2016-09-20] MEDS: ACCU-CHEK COMFORT CURVE STRIP VI SCH ×4 (06:00→17:51)
[2016-09-20] MEDS: MIDAZOLAM DRIP 100 mg/100mL NS 100 ML IV SCH (07:38)
[2016-09-20] MEDS: NOREPINEPHRINE BITARTRATE 250 ML IV SCH (10:15)
[2016-09-20] MEDS: PROPOFOL 100 ML IV SCH ×2 (12:08→23:27)
[2016-09-20] MEDS: LEVOFLOXACIN 250MG 50 ML IV SCH (12:17)
[2016-09-20] MEDS: PANTOPRAZOLE SODIUM 40 MG/10 ML VIAL IV SCH (12:17)
[2016-09-20] MEDS: HEPARIN SODIUM (PORCINE) 5000 UNITS/ML 1ML VIAL SC SCH ×2 (12:19→21:40)
[2016-09-20 13:34] LABS: Allen Test Yes; Base Excess 1.6 mmol/L (-2.0-2.0); Blood 02Sat 95.4 % (96-100); Blood COHb 1.1 % (0.5-1.5); Blood MetHb 0.2 % (0.0-1.5); HCO3 26.3 mmol/L (22-26.0); HHb 4.5 % (0.0-5.0); MODE VENT - A/C; O2Hb 94.2 % (94.0-97.0); PCO2 42.1 mmHg (35.0-45.0); PCO2(T) 42.1 mmHg (35.0-45.0); Sample Type Arterial; pH 7.414 (7.350-7.450)
[2016-09-20] MEDS ORDERED: VANCOMYCIN 500 MG in D5W 5% 100 ML IV ONE (14:00)
[2016-09-20] MEDS: fentaNYL Drip 2500mCg/250mlNS 250 ML IV SCH (14:44)
[2016-09-20] MEDS: PROCHLORPERAZINE EDISYLATE 5 MG/ML 2ML VIAL IV PRN (15:55)
[2016-09-21] VITALS (99 sets, daily range): BP systolic 72–140; BP diastolic 35–83
[2016-09-21] MEDS: FREE WATER GT SCH ×5 (00:13→23:29)
[2016-09-21] MEDS: metroNIDAZOLE 500 MG TAB PO SCH ×5 (00:14→23:29)
[2016-09-21] MEDS: ACCU-CHEK COMFORT CURVE STRIP VI SCH ×5 (00:14→23:30)
[2016-09-21] MEDS: IPRATROPIUM BROM 0.5 MG/2.5ML INH SOL NEB SCH ×4 (00:25→18:19)
[2016-09-21] MEDS: ALBUTEROL SULF 2.5 MG/0.5ML(0.5%) NEB SOLN NEB SCH ×4 (00:25→18:19)
[2016-09-21 03:56] LABS: Basophils # (auto) 0 uL; Basophils % (auto) 0.4 % (0.0-2.0); DEFINITIVE VIEW TRANSMISSION; Eosinophils # (auto) 0.1 uL; Eosinophils % (auto) 2.1 % (0.0-7.0); Hematocrit 30.9 % (36.0-46.0); Hemoglobin 10.1 g/dL (12.2-16.2); Lymphocytes # (auto) 0.6 uL; Lymphocytes % (auto) 16.2 % (10.0-50.0); Mean Corpuscular Hgb Conc. 32.9 g/dL (32.0-36.0); Mean Corpuscular Volume 94.3 fL (80.0-100.0); Mean Platelet Volume 6.8 fL (7.4-10.4); Monocytes # (auto) 0.4 uL; Monocytes % (auto) 11.3 % (0.0-12.0); Neutrophils # (auto) 2.6 uL; Platelet Count (auto) 134 10^3/uL (140-450); White Blood Cell 3.7 10^3/uL (4.4-10.8)
[2016-09-21 04:19] LABS: Red Cell Distribution Width 21.2 % (11.6-16.0)
[2016-09-21 04:22] LABS: Albumin 2.5 g/dL (3.4-5.0); BUN/Creatinine Ratio 8.8; Potassium 4.1 mmol/L (3.5-5.1)
[2016-09-21 04:24] LABS: Bilirubin, Total 0.7 mg/dL (0.2-1.0); Total Protein 5.3 g/dL (6.4-8.2)
[2016-09-21 05:02] LABS: Anisocytosis Moderate; Basophilic Stippling FEW; Platelet Estimate Decreased
[2016-09-21 05:03] LABS: Ovalocytes FEW
[2016-09-21] MEDS: InsuLIN REG 1unit/0.01ml Soln (100units/ml) SC SCH ×5 (06:00→23:30)
[2016-09-21] MEDS: VANCOMYCIN HCL 125MG/5ML ORAL SOL GT SCH ×4 (06:20→21:03)
[2016-09-21 07:15] LABS: Allen Test Yes; Base Excess 1.4 mmol/L (-2.0-2.0); Blood 02Sat 96.8 % (96-100); Blood COHb 0.9 % (0.5-1.5); Blood MetHb 0.2 % (0.0-1.5); HCO3 25.6 mmol/L (22-26.0); HHb 3.2 % (0.0-5.0); MODE VENT - A/C; O2Hb 95.7 % (94.0-97.0); PCO2 38.5 mmHg (35.0-45.0); PCO2(T) 38.5 mmHg (35.0-45.0); PO2 94.3 mmHg (80.0-100.0); PO2(T) 94.3 mmHg (80.0-100.0); Sample Type Arterial
[2016-09-21] MEDS: NOREPINEPHRINE BITARTRATE 250 ML IV SCH (07:30)
[2016-09-21] MEDS: MIDAZOLAM DRIP 100 mg/100mL NS 100 ML IV SCH (07:38)
[2016-09-21] MEDS: PANTOPRAZOLE SODIUM 40 MG/10 ML VIAL IV SCH (10:58)
[2016-09-21] MEDS: MUPIROCIN 2% OINT 22GM EACHNOSTRI SCH ×2 (10:58→21:03)
[2016-09-21] MEDS: HEPARIN SODIUM (PORCINE) 5000 UNITS/ML 1ML VIAL SC SCH ×2 (10:59→21:10)
[2016-09-21 14:44] LABS: Allen Test Yes; Base Excess 1.2 mmol/L (-2.0-2.0); Blood 02Sat 96.9 % (96-100); Blood COHb 0.9 % (0.5-1.5); Blood MetHb 0.2 % (0.0-1.5); HCO3 25.6 mmol/L (22-26.0); HHb 3.1 % (0.0-5.0); MODE VENT - CPAP; O2Hb 95.8 % (94.0-97.0); PCO2(T) 39.8 mmHg (35.0-45.0); PO2(T) 97.2 mmHg (80.0-100.0); Pressure Support 8; Sample Type Arterial
[2016-09-21] MEDS: PROCHLORPERAZINE EDISYLATE 5 MG/ML 2ML VIAL IV PRN (18:18)
[2016-09-22] VITALS (64 sets, daily range): BP systolic 78–166; BP diastolic 39–107
[2016-09-22] MEDS: IPRATROPIUM BROM 0.5 MG/2.5ML INH SOL NEB SCH ×4 (00:02→18:00)
[2016-09-22] MEDS: ALBUTEROL SULF 2.5 MG/0.5ML(0.5%) NEB SOLN NEB SCH ×4 (00:02→18:00)
[2016-09-22] MEDS: InsuLIN REG 1unit/0.01ml Soln (100units/ml) SC SCH ×4 (04:00→23:41)
[2016-09-22 05:23] LABS: Basophils # (auto) 0 uL; Basophils % (auto) 0.2 % (0.0-2.0); DEFINITIVE VIEW TRANSMISSION; Eosinophils # (auto) 0.1 uL; Eosinophils % (auto) 4.7 % (0.0-7.0); Hematocrit 28.2 % (36.0-46.0); Hemoglobin 9.3 g/dL (12.2-16.2); Lymphocytes # (auto) 0.5 uL; Lymphocytes % (auto) 18.9 % (10.0-50.0); Mean Corpuscular Hemoglobin 31.7 pg (28.0-32.0); Mean Corpuscular Hgb Conc. 33.2 g/dL (32.0-36.0); Mean Corpuscular Volume 95.7 fL (80.0-100.0); Mean Platelet Volume 6.8 fL (7.4-10.4); Monocytes # (auto) 0.3 uL; Monocytes % (auto) 12.3 % (0.0-12.0); Neutrophils # (auto) 1.6 uL; Neutrophils % (auto) 63.9 % (37.0-80.0); Platelet Count (auto) 102 10^3/uL (140-450); White Blood Cell 2.5 10^3/uL (4.4-10.8)
[2016-09-22 05:24] LABS: Albumin 2.3 g/dL (3.4-5.0); Bilirubin, Total 0.5 mg/dL (0.2-1.0); Calcium 7.8 mg/dL (8.5-10.1); Total Protein 5.2 g/dL (6.4-8.2)
[2016-09-22 05:27] LABS: Red Cell Distribution Width 21.6 % (11.6-16.0)
[2016-09-22] MEDS: ACCU-CHEK COMFORT CURVE STRIP VI SCH ×4 (06:00→23:41)
[2016-09-22] MEDS: FREE WATER GT SCH ×4 (06:00→23:44)
[2016-09-22] MEDS: VANCOMYCIN HCL 125MG/5ML ORAL SOL GT SCH ×4 (06:00→21:56)
[2016-09-22] MEDS: metroNIDAZOLE 500 MG TAB PO SCH ×4 (06:00→23:41)
[2016-09-22 06:37] LABS: Platelet Estimate Decreased
[2016-09-22 06:38] LABS: Anisocytosis Moderate; Ovalocytes FEW
[2016-09-22] MEDS: PROPOFOL 100 ML IV SCH ×2 (08:17→23:27)
[2016-09-22] MEDS: fentaNYL Drip 2500mCg/250mlNS 250 ML IV SCH ×2 (08:17→21:49)
[2016-09-22] MEDS: NOREPINEPHRINE BITARTRATE 250 ML IV SCH (08:18)
[2016-09-22] MEDS: MIDAZOLAM DRIP 100 mg/100mL NS 100 ML IV SCH (08:18)
[2016-09-22] MEDS: MUPIROCIN 2% OINT 22GM EACHNOSTRI SCH ×2 (10:16→21:55)
[2016-09-22] MEDS: PANTOPRAZOLE SODIUM 40 MG/10 ML VIAL IV SCH (10:16)
[2016-09-22] MEDS: LEVOFLOXACIN 250MG 50 ML IV SCH (10:16)
[2016-09-22] MEDS: HEPARIN SODIUM (PORCINE) 5000 UNITS/ML 1ML VIAL SC SCH ×2 (10:17→21:59)
[2016-09-22] MEDS ORDERED: VANCOMYCIN 500 MG in D5W 5% 100 ML IV ONE ×2 (14:00→17:15)
[2016-09-22] MEDS ORDERED: ALBUMIN 25% 100 ML IV ONE (15:16)
[2016-09-22] MEDS: ALBUMIN 25% 100 ML IV PRN (16:00)
[2016-09-23] VITALS (31 sets, daily range): BP systolic 99–125; BP diastolic 55–88
[2016-09-23] MEDS: PROCHLORPERAZINE EDISYLATE 5 MG/ML 2ML VIAL IV PRN (00:32)
[2016-09-23] MEDS: ALBUTEROL SULF 2.5 MG/0.5ML(0.5%) NEB SOLN NEB SCH ×4 (00:42→19:42)
[2016-09-23] MEDS: IPRATROPIUM BROM 0.5 MG/2.5ML INH SOL NEB SCH ×4 (00:42→21:57)
[2016-09-23] MEDS: InsuLIN REG 1unit/0.01ml Soln (100units/ml) SC SCH ×4 (06:00→23:43)
[2016-09-23] MEDS: metroNIDAZOLE 500 MG TAB PO SCH ×4 (06:04→23:44)
[2016-09-23] MEDS: VANCOMYCIN HCL 125MG/5ML ORAL SOL GT SCH ×4 (06:06→22:04)
[2016-09-23] MEDS: FREE WATER GT SCH ×4 (06:06→23:44)
[2016-09-23] MEDS: ACCU-CHEK COMFORT CURVE STRIP VI SCH ×4 (06:15→23:43)
[2016-09-23 06:29] LABS: Basophils # (auto) 0 uL; Basophils % (auto) 0.2 % (0.0-2.0); DEFINITIVE VIEW TRANSMISSION; Eosinophils # (auto) 0.1 uL; Eosinophils % (auto) 3.1 % (0.0-7.0); Hemoglobin 9.3 g/dL (12.2-16.2); Lymphocytes # (auto) 0.4 uL; Lymphocytes % (auto) 17.1 % (10.0-50.0); Mean Corpuscular Hemoglobin 31.6 pg (28.0-32.0); Mean Corpuscular Hgb Conc. 33.3 g/dL (32.0-36.0); Mean Platelet Volume 7.4 fL (7.4-10.4); Monocytes # (auto) 0.3 uL; Monocytes % (auto) 11.3 % (0.0-12.0); Neutrophils # (auto) 1.8 uL; Neutrophils % (auto) 68.3 % (37.0-80.0); Platelet Count (auto) 115 10^3/uL (140-450); White Blood Cell 2.6 10^3/uL (4.4-10.8)
[2016-09-23 06:32] LABS: Red Cell Distribution Width 21.3 % (11.6-16.0)
[2016-09-23 06:36] LABS: Potassium 4.3 mmol/L (3.5-5.1)
[2016-09-23 06:43] LABS: BUN/Creatinine Ratio 7.8
[2016-09-23 06:56] LABS: Platelet Estimate Decreased
[2016-09-23 06:59] LABS: Anisocytosis Slight; Ovalocytes FEW
[2016-09-23] MEDS: MIDAZOLAM DRIP 100 mg/100mL NS 100 ML IV SCH (07:38)
[2016-09-23] MEDS: NOREPINEPHRINE BITARTRATE 250 ML IV SCH (08:07)
[2016-09-23] MEDS: PANTOPRAZOLE SODIUM 40 MG/10 ML VIAL IV SCH (10:32)
[2016-09-23] MEDS: HEPARIN SODIUM (PORCINE) 5000 UNITS/ML 1ML VIAL SC SCH ×2 (10:34→22:05)
[2016-09-23] MEDS: MUPIROCIN 2% OINT 22GM EACHNOSTRI SCH ×2 (10:50→22:04)
[2016-09-23] MEDS: fentaNYL Drip 2500mCg/250mlNS 250 ML IV SCH (21:49)
[2016-09-23] MEDS: PROPOFOL 100 ML IV SCH (23:27)
[2016-09-24] MEDS: ALBUTEROL SULF 2.5 MG/0.5ML(0.5%) NEB SOLN NEB SCH ×4 (00:55→18:08)
[2016-09-24] MEDS: IPRATROPIUM BROM 0.5 MG/2.5ML INH SOL NEB SCH ×4 (00:55→18:08)
[2016-09-24 05:35] VITALS: BP 115/74
[2016-09-24] MEDS: FREE WATER GT SCH (05:55)
[2016-09-24] MEDS: InsuLIN REG 1unit/0.01ml Soln (100units/ml) SC SCH ×4 (05:55→23:53)
[2016-09-24] MEDS: VANCOMYCIN HCL 125MG/5ML ORAL SOL GT SCH (05:55)
[2016-09-24] MEDS: metroNIDAZOLE 500 MG TAB PO SCH ×4 (05:55→23:53)
[2016-09-24] MEDS: ACCU-CHEK COMFORT CURVE STRIP VI SCH ×4 (05:55→23:53)
[2016-09-24] MEDS ORDERED: EPOETIN ALFA 10,000 UNIT/1 ML VIAL IV ONE (08:00)
[2016-09-24 09:00] VITALS: BP 107/68
[2016-09-24 09:32] LABS: BUN/Creatinine Ratio 7.4; Calcium 8.9 mg/dL (8.5-10.1)
[2016-09-24] MEDS: HEPARIN SODIUM (PORCINE) 5000 UNITS/ML 1ML VIAL SC SCH ×2 (10:00→22:00)
[2016-09-24] MEDS ORDERED: HEPARIN 1,000 UNITS/ml 1ML VIAL IV ONE (10:30)
[2016-09-24] MEDS: MUPIROCIN 2% OINT 22GM EACHNOSTRI SCH ×2 (10:52→21:54)
[2016-09-24] MEDS: Novasource Renal 8 Ounces PO SCH ×2 (10:53→21:54)
[2016-09-24] MEDS: PRO-STAT 64 30ML PO SCH ×2 (10:53→21:54)
[2016-09-24 13:00] VITALS: BP 115/75
[2016-09-24] MEDS: LEVOFLOXACIN 250MG 50 ML IV SCH (13:00)
[2016-09-24] MEDS: PANTOPRAZOLE SODIUM 40 MG/10 ML VIAL IV SCH (13:00)
[2016-09-24] MEDS: VANCOMYCIN HCL 125MG/5ML ORAL SOL PO SCH ×3 (13:01→21:53)
[2016-09-24] MEDS ORDERED: VANCOMYCIN 1GM/250ML D5W 250 ML IV ONE (16:00)
[2016-09-24 17:00] VITALS: BP 140/93
[2016-09-24] MEDS: MORPHINE SULF INJ 2 MG/ML SYRINGE 1ML IV PRN (18:55)
[2016-09-24 20:00] VITALS: BP 118/79
[2016-09-24 22:30] VITALS: BP 118/79
[2016-09-25] MEDS: IPRATROPIUM BROM 0.5 MG/2.5ML INH SOL NEB SCH ×4 (00:18→18:44)
[2016-09-25] MEDS: ALBUTEROL SULF 2.5 MG/0.5ML(0.5%) NEB SOLN NEB SCH ×4 (00:18→18:44)
[2016-09-25] MEDS: MORPHINE SULF INJ 2 MG/ML SYRINGE 1ML IV PRN ×2 (01:56→22:27)
[2016-09-25 05:32] VITALS: BP 107/65
[2016-09-25] MEDS: InsuLIN REG 1unit/0.01ml Soln (100units/ml) SC SCH ×3 (06:00→18:00)
[2016-09-25] MEDS: VANCOMYCIN HCL 125MG/5ML ORAL SOL PO SCH ×4 (06:09→21:58)
[2016-09-25] MEDS: metroNIDAZOLE 500 MG TAB PO SCH ×3 (06:09→18:24)
[2016-09-25] MEDS: ACCU-CHEK COMFORT CURVE STRIP VI SCH ×3 (06:09→18:26)
[2016-09-25 09:00] VITALS: BP 117/79
[2016-09-25] MEDS: HEPARIN SODIUM (PORCINE) 5000 UNITS/ML 1ML VIAL SC SCH ×2 (10:00→22:27)
[2016-09-25] MEDS: PANTOPRAZOLE SODIUM 40 MG/10 ML VIAL IV SCH (10:39)
[2016-09-25] MEDS: MUPIROCIN 2% OINT 22GM EACHNOSTRI SCH ×2 (10:39→21:58)
[2016-09-25] MEDS: PRO-STAT 64 30ML PO SCH ×2 (10:41→21:59)
[2016-09-25] MEDS: Novasource Renal 8 Ounces PO SCH ×2 (10:41→21:58)
[2016-09-25 12:17] VITALS: BP 127/78
[2016-09-25 17:06] VITALS: BP 116/78
[2016-09-25 19:56] VITALS: BP 114/68
[2016-09-25 20:00] VITALS: BP 114/68
[2016-09-25 20:10] LABS: Body Fluid Polymorphonuclear 14 %
[2016-09-26] MEDS: ACCU-CHEK COMFORT CURVE STRIP VI SCH ×5 (00:12→23:39)
[2016-09-26] MEDS: metroNIDAZOLE 500 MG TAB PO SCH ×5 (00:14→23:39)
[2016-09-26] MEDS: IPRATROPIUM BROM 0.5 MG/2.5ML INH SOL NEB SCH ×4 (00:40→18:13)
[2016-09-26] MEDS: ALBUTEROL SULF 2.5 MG/0.5ML(0.5%) NEB SOLN NEB SCH ×4 (00:40→18:13)
[2016-09-26 04:56] VITALS: BP 107/64
[2016-09-26] MEDS: VANCOMYCIN HCL 125MG/5ML ORAL SOL PO SCH ×4 (05:54→21:28)
[2016-09-26] MEDS: InsuLIN REG 1unit/0.01ml Soln (100units/ml) SC SCH ×5 (05:55→23:45)
[2016-09-26] MEDS: MORPHINE SULF INJ 2 MG/ML SYRINGE 1ML IV PRN (06:46)
[2016-09-26] MEDS ORDERED: EPOETIN ALFA 10,000 UNIT/1 ML VIAL IV ONE (08:00)
[2016-09-26] MEDS ORDERED: SODIUM CHL 0.9% 1000 ML BAG XX ONE (08:00)
[2016-09-26 09:21] VITALS: BP 91/57
[2016-09-26] MEDS: PRO-STAT 64 30ML PO SCH ×2 (10:00→21:40)
[2016-09-26] MEDS: Novasource Renal 8 Ounces PO SCH ×2 (10:00→21:41)
[2016-09-26] MEDS: ALBUMIN 25% 100 ML IV PRN ×2 (10:01→10:02)
[2016-09-26 12:22] VITALS: BP 95/57
[2016-09-26] MEDS: MUPIROCIN 2% OINT 22GM EACHNOSTRI SCH ×2 (13:23→21:28)
[2016-09-26] MEDS: PANTOPRAZOLE SODIUM 40 MG/10 ML VIAL IV SCH (13:30)
[2016-09-26] MEDS: HEPARIN SODIUM (PORCINE) 5000 UNITS/ML 1ML VIAL SC SCH ×2 (13:37→21:31)
[2016-09-26 17:00] VITALS: BP 104/67
[2016-09-26 21:30] VITALS: BP 112/72
[2016-09-26 22:34] VITALS: BP 112/72
[2016-09-27] MEDS: ALBUTEROL SULF 2.5 MG/0.5ML(0.5%) NEB SOLN NEB SCH ×4 (00:35→18:27)
[2016-09-27] MEDS: IPRATROPIUM BROM 0.5 MG/2.5ML INH SOL NEB SCH ×4 (00:35→18:27)
[2016-09-27 05:00] VITALS: BP 127/92
[2016-09-27] MEDS: metroNIDAZOLE 500 MG TAB PO SCH ×3 (05:42→18:04)
[2016-09-27] MEDS: ACCU-CHEK COMFORT CURVE STRIP VI SCH ×3 (05:42→18:09)
[2016-09-27] MEDS: VANCOMYCIN HCL 125MG/5ML ORAL SOL PO SCH ×4 (05:42→23:10)
[2016-09-27] MEDS: InsuLIN REG 1unit/0.01ml Soln (100units/ml) SC SCH ×3 (05:47→18:00)
[2016-09-27 08:00] VITALS: BP 109/55
[2016-09-27] MEDS: Novasource Renal 8 Ounces PO SCH ×2 (10:00→23:26)
[2016-09-27] MEDS: PRO-STAT 64 30ML PO SCH ×2 (10:00→23:26)
[2016-09-27] MEDS: PANTOPRAZOLE SODIUM 40 MG/10 ML VIAL IV SCH (10:28)
[2016-09-27] MEDS: MUPIROCIN 2% OINT 22GM EACHNOSTRI SCH ×2 (10:35→23:26)
[2016-09-27] MEDS: HEPARIN SODIUM (PORCINE) 5000 UNITS/ML 1ML VIAL SC SCH ×2 (10:57→23:07)
[2016-09-27] MEDS: diphenhdrAMINE HCL 25 MG CAP PO PRN (11:53)
[2016-09-27 13:00] VITALS: BP 99/66
[2016-09-27 17:00] VITALS: BP 105/71
[2016-09-27 20:30] VITALS: BP 109/68
[2016-09-27 20:38] LABS: Basophils # (auto) 0 uL; Basophils % (auto) 0.9 % (0.0-2.0); DEFINITIVE VIEW TRANSMISSION; Eosinophils # (auto) 0.1 uL; Eosinophils % (auto) 4.4 % (0.0-7.0); Hematocrit 30.7 % (36.0-46.0); Hemoglobin 10.1 g/dL (12.2-16.2); Lymphocytes # (auto) 0.6 uL; Lymphocytes % (auto) 25.5 % (10.0-50.0); Mean Corpuscular Hemoglobin 31.6 pg (28.0-32.0); Mean Corpuscular Volume 95.9 fL (80.0-100.0); Mean Platelet Volume 7.6 fL (7.4-10.4); Monocytes # (auto) 0.3 uL; Monocytes % (auto) 14.4 % (0.0-12.0); Neutrophils # (auto) 1.2 uL; Neutrophils % (auto) 54.8 % (37.0-80.0); Platelet Count (auto) 110 10^3/uL (140-450); White Blood Cell 2.2 10^3/uL (4.4-10.8)
[2016-09-27 20:56] VITALS: BP 109/68
[2016-09-27 21:11] LABS: Red Cell Distribution Width 21.4 % (11.6-16.0)
[2016-09-28] MEDS: ALBUTEROL SULF 2.5 MG/0.5ML(0.5%) NEB SOLN NEB SCH ×3 (00:03→22:21)
[2016-09-28] MEDS: IPRATROPIUM BROM 0.5 MG/2.5ML INH SOL NEB SCH ×3 (00:03→22:20)
[2016-09-28] MEDS: metroNIDAZOLE 500 MG TAB PO SCH ×4 (00:25→17:19)
[2016-09-28] MEDS: ACCU-CHEK COMFORT CURVE STRIP VI SCH ×4 (00:36→17:11)
[2016-09-28] MEDS: InsuLIN REG 1unit/0.01ml Soln (100units/ml) SC SCH ×4 (00:36→17:10)
[2016-09-28 05:18] VITALS: BP 110/75
[2016-09-28] MEDS: VANCOMYCIN HCL 125MG/5ML ORAL SOL PO SCH ×4 (06:01→22:19)
[2016-09-28 06:28] LABS: Basophils # (auto) 0 uL; Basophils % (auto) 0.6 % (0.0-2.0); DEFINITIVE VIEW TRANSMISSION; Eosinophils # (auto) 0.1 uL; Eosinophils % (auto) 5.5 % (0.0-7.0); Hematocrit 28.1 % (36.0-46.0); Hemoglobin 9.4 g/dL (12.2-16.2); Lymphocytes # (auto) 0.6 uL; Lymphocytes % (auto) 28.3 % (10.0-50.0); Mean Corpuscular Hemoglobin 31.8 pg (28.0-32.0); Mean Corpuscular Hgb Conc. 33.4 g/dL (32.0-36.0); Mean Corpuscular Volume 95.2 fL (80.0-100.0); Monocytes # (auto) 0.3 uL; Neutrophils # (auto) 1.1 uL; Neutrophils % (auto) 51.6 % (37.0-80.0); Platelet Count (auto) 102 10^3/uL (140-450); White Blood Cell 2.1 10^3/uL (4.4-10.8)
[2016-09-28 06:45] LABS: Red Cell Distribution Width 21.2 % (11.6-16.0)
[2016-09-28 06:57] LABS: Albumin 2.8 g/dL (3.4-5.0); BUN/Creatinine Ratio 7.4; Bilirubin, Total 0.5 mg/dL (0.2-1.0); Potassium 3.7 mmol/L (3.5-5.1)
[2016-09-28 07:50] LABS: Platelet Estimate Decreased
[2016-09-28 07:51] LABS: Anisocytosis Slight
[2016-09-28 08:00] VITALS: BP 100/62
[2016-09-28 08:37] VITALS: BP 100/62
[2016-09-28] MEDS: HEPARIN SODIUM (PORCINE) 5000 UNITS/ML 1ML VIAL SC SCH ×2 (11:19→22:05)
[2016-09-28] MEDS: Novasource Renal 8 Ounces PO SCH ×2 (11:25→22:19)
[2016-09-28] MEDS: PANTOPRAZOLE SODIUM 40 MG/10 ML VIAL IV SCH (11:25)
[2016-09-28] MEDS: MUPIROCIN 2% OINT 22GM EACHNOSTRI SCH ×2 (11:25→22:18)
[2016-09-28] MEDS: PRO-STAT 64 30ML PO SCH ×2 (11:26→22:00)
[2016-09-28 13:30] VITALS: BP 102/64
[2016-09-28 14:15] LABS: INR 1.33 (0.9-1.15); Prothrombin Time 14.5 sec (9.37-12.3)
[2016-09-28] MEDS ORDERED: fentaNYL CITRATE 100 MCG/2 ML VL IV ONE (15:21)
[2016-09-28] MEDS: PROCHLORPERAZINE EDISYLATE 5 MG/ML 2ML VIAL IV PRN (16:29)
[2016-09-28] MEDS ORDERED: MIDAZOLAM HCL 1MG/1ML-2 ML VIAL IV ONE (16:30)
[2016-09-28 17:22] VITALS: BP 95/62
[2016-09-28] MEDS ORDERED: ALBUTEROL SULF 2.5 MG/0.5ML(0.5%) NEB SOLN NEB PRN (20:30)
[2016-09-28] MEDS: HYDROcodone-ACET 5/325MG TAB PO PRN (22:53)
[2016-09-28 23:46] VITALS: BP 113/75
[2016-09-29] MEDS: metroNIDAZOLE 500 MG TAB PO SCH ×5 (00:36→21:41)
[2016-09-29] MEDS: ACCU-CHEK COMFORT CURVE STRIP VI SCH ×3 (00:36→12:00)
[2016-09-29] MEDS: InsuLIN REG 1unit/0.01ml Soln (100units/ml) SC SCH ×3 (00:41→12:00)
[2016-09-29 00:59] VITALS: BP 113/75
[2016-09-29 05:20] VITALS: BP 95/60
[2016-09-29] MEDS: VANCOMYCIN HCL 125MG/5ML ORAL SOL PO SCH ×4 (05:47→21:40)
[2016-09-29] MEDS: IPRATROPIUM BROM 0.5 MG/2.5ML INH SOL NEB SCH ×5 (07:01→23:51)
[2016-09-29] MEDS: ALBUTEROL SULF 2.5 MG/0.5ML(0.5%) NEB SOLN NEB SCH ×5 (07:01→23:51)
[2016-09-29 09:06] VITALS: BP 99/60
[2016-09-29] MEDS: Novasource Renal 8 Ounces PO SCH ×2 (09:25→21:41)
[2016-09-29] MEDS: HEPARIN SODIUM (PORCINE) 5000 UNITS/ML 1ML VIAL SC SCH ×2 (09:25→21:39)
[2016-09-29] MEDS: MUPIROCIN 2% OINT 22GM EACHNOSTRI SCH ×2 (09:25→21:41)
[2016-09-29] MEDS: PANTOPRAZOLE SODIUM 40 MG/10 ML VIAL IV SCH (09:25)
[2016-09-29] MEDS: PRO-STAT 64 30ML PO SCH ×2 (09:26→21:42)
[2016-09-29] MEDS ORDERED: ALBUMIN 25% 100 ML IV PRN (11:00)
[2016-09-29] MEDS ORDERED: EPOETIN ALFA 10,000 UNIT/1 ML VIAL IV ONE (12:15)
[2016-09-29] MEDS ORDERED: SODIUM CHL 0.9% 1000 ML BAG XX ONE (12:15)
[2016-09-29 13:00] VITALS: BP 112/72
[2016-09-29 17:28] VITALS: BP 91/57
[2016-09-29] MEDS: HYDROcodone-ACET 5/325MG TAB PO PRN (20:23)
[2016-09-29] MEDS: diphenhdrAMINE HCL 25 MG CAP PO PRN (21:39)
[2016-09-29 22:00] VITALS: BP 91/57
[2016-09-30] VITALS (7 sets, daily range): BP systolic 61–105; BP diastolic 50–66
[2016-09-30] MEDS: HYDROcodone-ACET 5/325MG TAB PO PRN ×3 (02:17→21:50)
[2016-09-30] MEDS: metroNIDAZOLE 500 MG TAB PO SCH ×3 (06:00→18:10)
[2016-09-30] MEDS: VANCOMYCIN HCL 125MG/5ML ORAL SOL PO SCH ×4 (06:00→21:49)
[2016-09-30] MEDS: IPRATROPIUM BROM 0.5 MG/2.5ML INH SOL NEB SCH ×2 (07:05→19:34)
[2016-09-30] MEDS: ALBUTEROL SULF 2.5 MG/0.5ML(0.5%) NEB SOLN NEB SCH ×2 (07:05→19:33)
[2016-09-30] MEDS ORDERED: ALBUMIN 25% 100 ML IV SCH (10:00)
[2016-09-30] MEDS: MUPIROCIN 2% OINT 22GM EACHNOSTRI SCH ×2 (10:00→22:00)
[2016-09-30] MEDS: PRO-STAT 64 30ML PO SCH ×2 (10:07→21:49)
[2016-09-30] MEDS: Novasource Renal 8 Ounces PO SCH ×2 (10:07→21:49)
[2016-09-30] MEDS: HEPARIN SODIUM (PORCINE) 5000 UNITS/ML 1ML VIAL SC SCH ×2 (10:52→21:51)
[2016-10-01] MEDS: metroNIDAZOLE 500 MG TAB PO SCH ×4 (00:49→17:36)
[2016-10-01] MEDS: IPRATROPIUM BROM 0.5 MG/2.5ML INH SOL NEB SCH ×3 (01:06→12:11)
[2016-10-01] MEDS: ALBUTEROL SULF 2.5 MG/0.5ML(0.5%) NEB SOLN NEB SCH ×3 (01:06→12:11)
[2016-10-01 04:40] VITALS: BP 106/68
[2016-10-01] MEDS: VANCOMYCIN HCL 125MG/5ML ORAL SOL PO SCH ×3 (05:33→17:36)
[2016-10-01 07:00] LABS: DEFINITIVE VIEW TRANSMISSION; Hematocrit 29.9 % (36.0-46.0); Hemoglobin 9.8 g/dL (12.2-16.2); Mean Corpuscular Hemoglobin 31.5 pg (28.0-32.0); Mean Corpuscular Hgb Conc. 32.6 g/dL (32.0-36.0); Mean Corpuscular Volume 96.8 fL (80.0-100.0); Mean Platelet Volume 8.3 fL (7.4-10.4); Platelet Count (auto) 95 10^3/uL (140-450)
[2016-10-01 07:03] LABS: Red Cell Distribution Width 21.9 % (11.6-16.0)
[2016-10-01 07:05] LABS: Metamyelocytes % 0; Myelocytes % 0; Promyelocytes % 0; Reactive Lymphocytes 0
[2016-10-01 07:09] LABS: White Blood Cell 1.8 10^3/uL (4.4-10.8)
[2016-10-01 07:27] LABS: Albumin 3.4 g/dL (3.4-5.0); BUN/Creatinine Ratio 8.1; Bilirubin, Total 0.8 mg/dL (0.2-1.0); Calcium 8.2 mg/dL (8.5-10.1); Total Protein 6.4 g/dL (6.4-8.2)
[2016-10-01 07:54] LABS: Anisocytosis Slight; Platelet Estimate Decreased
[2016-10-01] MEDS: HEPARIN SODIUM (PORCINE) 5000 UNITS/ML 1ML VIAL SC SCH (08:18)
[2016-10-01] MEDS: PRO-STAT 64 30ML PO SCH (08:18)
[2016-10-01] MEDS: Novasource Renal 8 Ounces PO SCH (08:19)
[2016-10-01] MEDS: MUPIROCIN 2% OINT 22GM EACHNOSTRI SCH (08:19)
[2016-10-01 09:00] VITALS: BP 104/71
[2016-10-01 13:00] VITALS: BP 131/76
[2016-10-04 12:06] LABS: Vitamin D-2 25-Hydroxy 7.9 ng/mL (.)
== END 2016-10-01 18:15 | disposition home health service (06) | DRG 167 ==
LOC: ER 04:31 → TELE 04:32 → ICU WEST 18:20 → TELE-CENTR 09-23 23:20
PROVIDERS: ADMIT Internal Medicine; ATTEND Internal Medicine
PROC: 5A1955Z Respiratory Ventilation, Greater than 96 Consecutive Hours (ICD-10-PCS; principal; 2016-09-11)
PROC: 0BH17EZ Insertion of Endotracheal Airway into Trachea, Via Natural or Artificial Opening (ICD-10-PCS; 2016-09-11)
PROC: 0W9B30Z Drainage of Left Pleural Cavity with Drainage Device, Percutaneous Approach (ICD-10-PCS; 2016-09-11)
PROC: BH41ZZZ Ultrasonography of Left Breast (ICD-10-PCS; 2016-09-11)
PROC: 02H633Z Insertion of Infusion Device into Right Atrium, Percutaneous Approach (ICD-10-PCS; 2016-09-14)
PROC: 0W9B30Z Drainage of Left Pleural Cavity with Drainage Device, Percutaneous Approach (ICD-10-PCS; 2016-09-14)
PROC: 30233N1 Transfusion of Nonautologous Red Blood Cells into Peripheral Vein, Percutaneous Approach (ICD-10-PCS; 2016-09-18)
PROC: 0W9B30Z Drainage of Left Pleural Cavity with Drainage Device, Percutaneous Approach (ICD-10-PCS; 2016-09-20)
PROC: 5A1D60Z (ICD-10-PCS; 2016-09-24)
PROC: 0W9B30Z Drainage of Left Pleural Cavity with Drainage Device, Percutaneous Approach (ICD-10-PCS; 2016-09-25)
PROC: 0JH63XZ Insertion of Tunneled Vascular Access Device into Chest Subcutaneous Tissue and Fascia, Percutaneous Approach (ICD-10-PCS; 2016-09-28)
PROC: 0W9B30Z Drainage of Left Pleural Cavity with Drainage Device, Percutaneous Approach (ICD-10-PCS; 2016-09-28)
DX: I13.2 Hypertensive heart and chronic kidney disease with heart failure and with stage 5 chronic kidney disease, or end stage renal disease (principal); J96.21 Acute and chronic respiratory failure with hypoxia; E43 Unspecified severe protein-calorie malnutrition; J18.9 Pneumonia, unspecified organism; G93.41 Metabolic encephalopathy; J44.0 Chronic obstructive pulmonary disease with (acute) lower respiratory infection; A04.7 Enterocolitis due to Clostridium difficile; N18.6 End stage renal disease; J44.1 Chronic obstructive pulmonary disease with (acute) exacerbation; I50.23 Acute on chronic systolic (congestive) heart failure; E66.9 Obesity, unspecified; G40.909 Epilepsy, unspecified, not intractable, without status epilepticus; Z99.2 Dependence on renal dialysis; D64.9 Anemia, unspecified; E11.21 Type 2 diabetes mellitus with diabetic nephropathy; B95.62 Methicillin resistant Staphylococcus aureus infection as the cause of diseases classified elsewhere; E11.22 Type 2 diabetes mellitus with diabetic chronic kidney disease; E87.5 Hyperkalemia; H54.8 Legal blindness, as defined in USA; J96.22 Acute and chronic respiratory failure with hypercapnia; Z66 Do not resuscitate; Z82.1 Family history of blindness and visual loss; Z82.49 Family history of ischemic heart disease and other diseases of the circulatory system; Z83.3 Family history of diabetes mellitus; Z91.19 Patient's noncompliance with other medical treatment and regimen; Z95.810 Presence of automatic (implantable) cardiac defibrillator; Z80.9 Family history of malignant neoplasm, unspecified; Z88.5 Allergy status to narcotic agent; Z88.0 Allergy status to penicillin; Z88.2 Allergy status to sulfonamides; Z91.041 Radiographic dye allergy status; Z71.89 Other specified counseling; Z68.34 Body mass index [BMI] 34.0-34.9, adult
CPT/HCPCS: 10022; 31500; 36415; 36600; 51702; 70450; 71010; 71020; 71250; 76604; 76642; 76942; 80048; 80053; 80061; 80202; 80307; 80320; 81002; 82140; 82306; 82550; 82805; 82962; 83036; 83605; 83735; 83880; 83970; 83986; 84100; 84443; 84484; 85007; 85025; 85027; 85610; 85730; 86850; 86900; 86901; 86920; 87040; 87045; 87070; 87081; 87205; 87493; 87899; 89051; 90935; 92526; 92610; 93005; 94003; 94640; 96365; 96367; 97001; 97110; 97116; 97530; 99291; C9113; J0330; J0885; J1642; J1815; J1956; J2704; J3010; J7060

== ENCOUNTER 2016-10-21 16:29 | Inpatient (IN) | payer MEDICAID ==
[~2016-10-21] VITALS: Ht 170.2 cm; Wt 80.1 kg
[~2016-10-21 16:29] MED LIST changes: -BENA10TA3 PO; +BENA10TA9 PO; +BUME1TAB PO; +CIME200T6 PO; +FAMO40TA49 PO
[2016-10-21 17:15] LABS: Basophils # (auto) 0 uL; Basophils % (auto) 0.4 % (0.0-2.0); CONDITION Y; DEFINITIVE Y; Eosinophils # (auto) 0.1 uL; Eosinophils % (auto) 1.5 % (0.0-7.0); Hematocrit 31.3 % (36.0-46.0); Hemoglobin 10.1 g/dL (12.2-16.2); Lymphocytes # (auto) 0.9 uL; Lymphocytes % (auto) 18.5 % (10.0-50.0); Mean Corpuscular Hemoglobin 31.5 pg (28.0-32.0); Mean Corpuscular Hgb Conc. 32.1 g/dL (32.0-36.0); Mean Corpuscular Volume 98.1 fL (80.0-100.0); Mean Platelet Volume 8.9 fL (7.4-10.4); Monocytes # (auto) 0.5 uL; Monocytes % (auto) 9.7 % (0.0-12.0); Neutrophils # (auto) 3.3 uL; Neutrophils % (auto) 69.9 % (37.0-80.0); Platelet Count (auto) 85 10^3/uL (140-450); Red Cell Distribution Width 19.7 % (11.6-16.0); White Blood Cell 4.7 10^3/uL (4.4-10.8)
[2016-10-21 17:35] LABS: Albumin 3.2 g/dL (3.4-5.0); Anion Gap 8 (5-15); Aspartate Aminotransferase 27 U/L (15-37); BUN/Creatinine Ratio 9.9; Blood Urea Nitrogen 33 mg/dL (7-18); Calcium 8.3 mg/dL (8.5-10.1); Carbon Dioxide 30 mmol/L (21-32); Chloride 101 mmol/L (98-107); GFR African American 18 mL/min; GFR Non-African American 15 mL/min; Glucose 144 mg/dL (74-106); Potassium 4.3 mmol/L (3.5-5.1); Sodium 139 mmol/L (136-145)
[2016-10-21 17:39] LABS: Alkaline Phosphatase 193 U/L (45-117); Bilirubin, Total 0.6 mg/dL (0.2-1.0); Total Protein 7.2 g/dL (6.4-8.2)
[2016-10-21] MEDS ORDERED: SODIUM CHLORIDE 0.9% 1,000 ML IV ONE (17:42)
[2016-10-21] MEDS ORDERED: MORPHINE SULF INJ 2 MG/ML SYRINGE 1ML IV ONE (17:45)
[2016-10-21] MEDS ORDERED: ONDANSETRON HCL 4 MG/2 ML VIAL IV ONE (17:45)
[2016-10-21 18:23] LABS: INR 1.1 (0.9-1.15); Partial Thromboplastin Time 26.3 sec (22.64-33.71)
[2016-10-21 18:37] LABS: Temperature: 23.5 C (20.0-25.0)
[2016-10-21] MEDS ORDERED: DEXTROSE (50%) 50ML SYRG IV PRN (18:45)
[2016-10-21] MEDS ORDERED: NITROGLYCERIN 0.4 MG SL TAB SL PRN (18:45)
[2016-10-21] MEDS ORDERED: MORPHINE SULFATE 4 MG/ML SYRG IV PRN (18:45)
[2016-10-21] MEDS ORDERED: MORPHINE SULF INJ 2 MG/ML SYRINGE 1ML IV PRN (18:45)
[2016-10-21] MEDS ORDERED: LACTULOSE 20Gm/30ML SOLN PO PRN (18:45)
[2016-10-21] MEDS ORDERED: LORazepam 0.5 MG TAB PO PRN (18:45)
[2016-10-21] MEDS ORDERED: ALBUTEROL SULF 2.5 MG/0.5ML(0.5%) NEB SOLN NEB PRN (18:45)
[2016-10-21] MEDS ORDERED: PANTOPRAZOLE 40 MG TAB PO ONE (19:30)
[2016-10-21] MEDS: ENOXAPARIN SOD 30 MG/0.3 ML SYRINGE SC SCH (20:30)
[2016-10-21] MEDS: cefTRIAXone 1GM/50ML D5W 50 ML IV SCH (21:14)
[2016-10-21 22:00] VITALS: BP 104/72
[2016-10-21] MEDS: InsuLIN REG 1unit/0.01ml Soln (100units/ml) SC SCH (22:00)
[2016-10-21] MEDS: CLINDAMYCIN 600MG IV 50 ML IV SCH (22:09)
[2016-10-21] MEDS: ATORVASTATIN 20 MG TAB PO SCH (22:09)
[2016-10-21] MEDS: ACCU-CHEK COMFORT CURVE STRIP VI SCH (22:09)
[2016-10-21 22:49] VITALS: BP 104/72
[2016-10-21] MEDS ORDERED: PNEUMOCOCCAL VACC POLYS 25 MCG/0.5 ML VIAL IM ONE (23:30)
[2016-10-22 03:41] VITALS: BP 104/72
[2016-10-22] MEDS: MORPHINE SULF INJ 2 MG/ML SYRINGE 1ML IV PRN ×2 (03:41→22:08)
[2016-10-22 05:00] VITALS: BP 110/80
[2016-10-22] MEDS: ALBUTEROL SULF 2.5 MG/0.5ML(0.5%) NEB SOLN NEB SCH ×3 (05:54→11:23)
[2016-10-22] MEDS: IPRATROPIUM BROM 0.5 MG/2.5ML INH SOL NEB SCH ×3 (05:54→11:23)
[2016-10-22] MEDS: CLINDAMYCIN 600MG IV 50 ML IV SCH ×3 (05:59→21:34)
[2016-10-22] MEDS: ACCU-CHEK COMFORT CURVE STRIP VI SCH ×4 (06:37→21:34)
[2016-10-22] MEDS: InsuLIN REG 1unit/0.01ml Soln (100units/ml) SC SCH ×4 (06:37→21:34)
[2016-10-22 06:52] LABS: B-Type Natriuretic Peptide 4334.11 pg/mL (0-100)
[2016-10-22 06:56] LABS: Temperature: 22.7 C (20.0-25.0)
[2016-10-22] MEDS: cefTRIAXone 1GM/50ML D5W 50 ML IV SCH (08:29)
[2016-10-22 09:00] VITALS: BP 91/70
[2016-10-22] MEDS ORDERED: FAMOTIDINE 40 MG PO SCH (10:00)
[2016-10-22] MEDS ORDERED: BENAZEPRIL HCL 10 MG TAB PO SCH (10:00)
[2016-10-22] MEDS: PANTOPRAZOLE 40 MG TAB PO SCH (10:13)
[2016-10-22] MEDS: ASPirin-EC 81 mg tab PO SCH (10:13)
[2016-10-22] MEDS: DIGOXIN 0.125 MG TAB PO SCH (10:13)
[2016-10-22] MEDS: BUMETANIDE 1 MG TAB PO SCH (10:13)
[2016-10-22] MEDS ORDERED: HYDROcodone-ACET 5/325MG TAB PO PRN (12:00)
[2016-10-22] MEDS ORDERED: EPOETIN ALFA 10,000 UNIT/1 ML VIAL IV ONE (12:45)
[2016-10-22] MEDS ORDERED: SODIUM CHL 0.9% 1000 ML BAG XX ONE (12:45)
[2016-10-22 13:00] VITALS: BP 90/59
[2016-10-22 17:00] VITALS: BP 96/76
[2016-10-22] MEDS: ALBUMIN 25% 100 ML IV SCH ×2 (18:00→19:00)
[2016-10-22] MEDS: ENOXAPARIN SOD 30 MG/0.3 ML SYRINGE SC SCH (20:25)
[2016-10-22] MEDS: ATORVASTATIN 20 MG TAB PO SCH (21:34)
[2016-10-22 22:00] VITALS: BP 103/64
[2016-10-23] MEDS: MORPHINE SULF INJ 2 MG/ML SYRINGE 1ML IV PRN (04:42)
[2016-10-23 05:00] VITALS: BP 102/72
[2016-10-23] MEDS: CLINDAMYCIN 600MG IV 50 ML IV SCH ×3 (05:11→21:34)
[2016-10-23] MEDS: ACCU-CHEK COMFORT CURVE STRIP VI SCH ×4 (06:22→21:35)
[2016-10-23] MEDS: InsuLIN REG 1unit/0.01ml Soln (100units/ml) SC SCH ×4 (06:22→21:59)
[2016-10-23 06:56] LABS: Basophils # (auto) 0 uL; Basophils % (auto) 0.6 % (0.0-2.0); CONDITION AutoValidated; DEFINITIVE SEE PRINTOUT; Eosinophils # (auto) 0.1 uL; Eosinophils % (auto) 1.9 % (0.0-7.0); Hematocrit 29.3 % (36.0-46.0); Hemoglobin 9.7 g/dL (12.2-16.2); Lymphocytes # (auto) 0.7 uL; Lymphocytes % (auto) 21.6 % (10.0-50.0); Mean Corpuscular Hemoglobin 32.2 pg (28.0-32.0); Mean Corpuscular Hgb Conc. 33.1 g/dL (32.0-36.0); Mean Corpuscular Volume 97.3 fL (80.0-100.0); Mean Platelet Volume 9.2 fL (7.4-10.4); Monocytes # (auto) 0.4 uL; Monocytes % (auto) 12.4 % (0.0-12.0); Neutrophils # (auto) 2.2 uL; Neutrophils % (auto) 63.5 % (37.0-80.0); Platelet Count (auto) 87 10^3/uL (140-450); Red Cell Distribution Width 19.8 % (11.6-16.0); White Blood Cell 3.4 10^3/uL (4.4-10.8)
[2016-10-23 07:15] LABS: Potassium 4.9 mmol/L (3.5-5.1)
[2016-10-23] MEDS: IPRATROPIUM BROM 0.5 MG/2.5ML INH SOL NEB SCH ×3 (07:18→19:46)
[2016-10-23] MEDS: ALBUTEROL SULF 2.5 MG/0.5ML(0.5%) NEB SOLN NEB SCH ×3 (07:18→19:46)
[2016-10-23 07:23] LABS: Albumin 3.3 g/dL (3.4-5.0)
[2016-10-23 07:26] LABS: Bilirubin, Total 0.6 mg/dL (0.2-1.0)
[2016-10-23] MEDS: cefTRIAXone 1GM/50ML D5W 50 ML IV SCH (08:31)
[2016-10-23 09:00] VITALS: BP 97/72
[2016-10-23] MEDS: PANTOPRAZOLE 40 MG TAB PO SCH (09:36)
[2016-10-23] MEDS: BUMETANIDE 1 MG TAB PO SCH (09:36)
[2016-10-23] MEDS: ASPirin-EC 81 mg tab PO SCH (09:37)
[2016-10-23] MEDS: DIGOXIN 0.125 MG TAB PO SCH (09:37)
[2016-10-23] MEDS ORDERED: SODIUM CHL 0.9% 1000 ML BAG XX ONE (11:00)
[2016-10-23] MEDS ORDERED: EPOETIN ALFA 10,000 UNIT/1 ML VIAL IV ONE (11:00)
[2016-10-23 13:00] VITALS: BP 94/59
[2016-10-23] MEDS ORDERED: LIDOCAINE 2%HCL (LOCAL ANESTH.) INJ 20ML MDV ONE (13:16)
[2016-10-23 16:43] VITALS: BP 103/69
[2016-10-23] MEDS: ENOXAPARIN SOD 30 MG/0.3 ML SYRINGE SC SCH (20:23)
[2016-10-23 21:14] VITALS: BP 102/69
[2016-10-23] MEDS: ATORVASTATIN 20 MG TAB PO SCH (21:34)
[2016-10-24] MEDS: MORPHINE SULF INJ 2 MG/ML SYRINGE 1ML IV PRN ×4 (00:38→16:22)
[2016-10-24] MEDS: ALBUTEROL SULF 2.5 MG/0.5ML(0.5%) NEB SOLN NEB SCH ×4 (00:48→20:28)
[2016-10-24] MEDS: IPRATROPIUM BROM 0.5 MG/2.5ML INH SOL NEB SCH ×4 (00:48→20:28)
[2016-10-24 05:15] VITALS: BP 116/77
[2016-10-24] MEDS: CLINDAMYCIN 600MG IV 50 ML IV SCH ×3 (05:25→21:58)
[2016-10-24] MEDS: ACCU-CHEK COMFORT CURVE STRIP VI SCH ×4 (06:41→22:02)
[2016-10-24] MEDS: InsuLIN REG 1unit/0.01ml Soln (100units/ml) SC SCH ×4 (06:41→22:00)
[2016-10-24 08:30] VITALS: BP 103/61
[2016-10-24] MEDS ORDERED: SODIUM CHL 0.9% 1000 ML BAG XX ONE (09:00)
[2016-10-24] MEDS ORDERED: EPOETIN ALFA 10,000 UNIT/1 ML VIAL IV ONE (09:00)
[2016-10-24] MEDS: ASPirin-EC 81 mg tab PO SCH (10:44)
[2016-10-24] MEDS: DIGOXIN 0.125 MG TAB PO SCH (10:44)
[2016-10-24] MEDS: BUMETANIDE 1 MG TAB PO SCH (10:45)
[2016-10-24] MEDS: PANTOPRAZOLE 40 MG TAB PO SCH (10:45)
[2016-10-24] MEDS: cefTRIAXone 1GM/50ML D5W 50 ML IV SCH (10:46)
[2016-10-24 13:00] VITALS: BP 115/67
[2016-10-24 17:09] VITALS: BP 106/75
[2016-10-24 20:00] VITALS: BP 116/79
[2016-10-24 20:10] VITALS: BP 116/79
[2016-10-24] MEDS: ATORVASTATIN 20 MG TAB PO SCH (22:01)
[2016-10-24] MEDS: ENOXAPARIN SOD 30 MG/0.3 ML SYRINGE SC SCH (22:03)
[2016-10-25] MEDS: PROMETHAZINE HCL 25 MG/ML 1ML IV PRN (00:43)
[2016-10-25 05:37] VITALS: BP 120/69
[2016-10-25] MEDS: CLINDAMYCIN 600MG IV 50 ML IV SCH ×3 (06:01→21:49)
[2016-10-25 06:02] LABS: Basophils # (auto) 0 uL; Basophils % (auto) 0.5 % (0.0-2.0); CONDITION AutoValidated; DEFINITIVE SEE PRINTOUT; Eosinophils # (auto) 0 uL; Eosinophils % (auto) 0.9 % (0.0-7.0); Hematocrit 31.6 % (36.0-46.0); Hemoglobin 10.4 g/dL (12.2-16.2); Lymphocytes # (auto) 0.8 uL; Lymphocytes % (auto) 15.7 % (10.0-50.0); Mean Corpuscular Hemoglobin 32.2 pg (28.0-32.0); Mean Corpuscular Hgb Conc. 32.8 g/dL (32.0-36.0); Mean Platelet Volume 9.2 fL (7.4-10.4); Monocytes # (auto) 0.5 uL; Neutrophils # (auto) 3.5 uL; Neutrophils % (auto) 71.9 % (37.0-80.0); Platelet Count (auto) 108 10^3/uL (140-450); White Blood Cell 4.9 10^3/uL (4.4-10.8)
[2016-10-25] MEDS: ACCU-CHEK COMFORT CURVE STRIP VI SCH ×4 (06:06→22:33)
[2016-10-25] MEDS: InsuLIN REG 1unit/0.01ml Soln (100units/ml) SC SCH ×4 (06:06→22:32)
[2016-10-25 06:24] LABS: Potassium 5.1 mmol/L (3.5-5.1)
[2016-10-25 06:36] LABS: Albumin 3.2 g/dL (3.4-5.0); BUN/Creatinine Ratio 9.7; Calcium 8.6 mg/dL (8.5-10.1); Red Cell Distribution Width 20.1 % (11.6-16.0)
[2016-10-25 06:48] LABS: Bilirubin, Total 0.7 mg/dL (0.2-1.0)
[2016-10-25] MEDS: IPRATROPIUM BROM 0.5 MG/2.5ML INH SOL NEB SCH ×4 (07:23→18:13)
[2016-10-25] MEDS: ALBUTEROL SULF 2.5 MG/0.5ML(0.5%) NEB SOLN NEB SCH ×4 (07:23→18:13)
[2016-10-25 09:00] VITALS: BP 116/73
[2016-10-25] MEDS: cefTRIAXone 1GM/50ML D5W 50 ML IV SCH (10:09)
[2016-10-25] MEDS: PANTOPRAZOLE 40 MG TAB PO SCH (10:11)
[2016-10-25] MEDS: BUMETANIDE 1 MG TAB PO SCH (10:11)
[2016-10-25] MEDS: ASPirin-EC 81 mg tab PO SCH (10:12)
[2016-10-25] MEDS: DIGOXIN 0.125 MG TAB PO SCH (10:12)
[2016-10-25] MEDS: MORPHINE SULF INJ 2 MG/ML SYRINGE 1ML IV PRN ×2 (10:28→18:59)
[2016-10-25 13:00] VITALS: BP 117/71
[2016-10-25] MEDS: B-COMPLEX W/ C & FOLIC ACID(NEPHROVITE TAB) PO SCH (16:27)
[2016-10-25 17:00] VITALS: BP 107/67
[2016-10-25 20:30] VITALS: BP 111/70
[2016-10-25] MEDS: ENOXAPARIN SOD 30 MG/0.3 ML SYRINGE SC SCH (20:44)
[2016-10-25] MEDS: ASCORBIC ACID 500 MG TAB PO SCH (21:47)
[2016-10-25] MEDS: ATORVASTATIN 20 MG TAB PO SCH (21:47)
[2016-10-25 22:00] VITALS: BP 111/70
[2016-10-25] MEDS: TEMAZEPAM 15 MG CAP PO PRN (23:41)
[2016-10-26] VITALS (7 sets, daily range): BP systolic 94–121; BP diastolic 60–76
[2016-10-26] MEDS: MORPHINE SULF INJ 2 MG/ML SYRINGE 1ML IV PRN ×3 (04:34→19:52)
[2016-10-26 05:16] LABS: Partial Thromboplastin Time 29.5 sec (22.64-33.71)
[2016-10-26 05:19] LABS: INR 1.28 (0.9-1.15)
[2016-10-26] MEDS: CLINDAMYCIN 600MG IV 50 ML IV SCH ×3 (06:01→22:46)
[2016-10-26] MEDS: InsuLIN REG 1unit/0.01ml Soln (100units/ml) SC SCH ×4 (06:04→22:00)
[2016-10-26] MEDS: ACCU-CHEK COMFORT CURVE STRIP VI SCH ×4 (06:05→22:49)
[2016-10-26] MEDS: IPRATROPIUM BROM 0.5 MG/2.5ML INH SOL NEB SCH ×4 (06:11→19:41)
[2016-10-26] MEDS: ALBUTEROL SULF 2.5 MG/0.5ML(0.5%) NEB SOLN NEB SCH ×4 (06:11→19:41)
[2016-10-26] MEDS: cefTRIAXone 1GM/50ML D5W 50 ML IV SCH (09:05)
[2016-10-26] MEDS: BUMETANIDE 1 MG TAB PO SCH (10:29)
[2016-10-26] MEDS: ASCORBIC ACID 500 MG TAB PO SCH ×2 (10:30→22:44)
[2016-10-26] MEDS: B-COMPLEX W/ C & FOLIC ACID(NEPHROVITE TAB) PO SCH (10:30)
[2016-10-26] MEDS: DIGOXIN 0.125 MG TAB PO SCH (10:30)
[2016-10-26] MEDS: PANTOPRAZOLE 40 MG TAB PO SCH (10:30)
[2016-10-26] MEDS: ASPirin-EC 81 mg tab PO SCH (10:30)
[2016-10-26] MEDS ORDERED: LIDOCAINE 2%HCL (LOCAL ANESTH.) INJ 20ML MDV ONE (12:09)
[2016-10-26] MEDS ORDERED: fentaNYL CITRATE 100 MCG/2 ML VL ONE (12:38)
[2016-10-26] MEDS ORDERED: MIDAZOLAM HCL 1MG/1ML-2 ML VIAL ONE (12:38)
[2016-10-26] MEDS ORDERED: ceFAZolin 1GM/50ML D5W 50 ML IV ONE (13:12)
[2016-10-26] MEDS ORDERED: HEPARIN SODIUM (PORCINE) 5000 UNITS/ML 1ML VIAL ONE (13:26)
[2016-10-26 14:22] LABS: Allen Test Yes; Base Excess -3.4 mmol/L (-2.0-2.0); Blood 02Sat 98.9 % (96-100); Blood COHb 0.5 % (0.5-1.5); Blood MetHb 0.3 % (0.0-1.5); HCO3 23.7 mmol/L (22-26.0); HHb 1.1 % (0.0-5.0); MODE MASK - NRB; O2Hb 98.1 % (94.0-97.0); PCO2 51.9 mmHg (35.0-45.0); PCO2(T) 51.9 mmHg (35.0-45.0); PO2 255.5 mmHg (80.0-100.0); PO2(T) 255.5 mmHg (80.0-100.0); Room 0201T; Sample Type Arterial; pH 7.278 (7.350-7.450)
[2016-10-26] MEDS: ENOXAPARIN SOD 30 MG/0.3 ML SYRINGE SC SCH (19:57)
[2016-10-26] MEDS: PROMETHAZINE HCL 25 MG/ML 1ML IV PRN (19:57)
[2016-10-26] MEDS: ATORVASTATIN 20 MG TAB PO SCH (22:44)
[2016-10-27] VITALS (7 sets, daily range): BP systolic 101–110; BP diastolic 54–68
[2016-10-27] MEDS: MORPHINE SULF INJ 2 MG/ML SYRINGE 1ML IV PRN ×2 (00:25→04:32)
[2016-10-27] MEDS: IPRATROPIUM BROM 0.5 MG/2.5ML INH SOL NEB SCH ×2 (01:19→07:23)
[2016-10-27] MEDS: ALBUTEROL SULF 2.5 MG/0.5ML(0.5%) NEB SOLN NEB SCH ×2 (01:19→07:23)
[2016-10-27] MEDS: TEMAZEPAM 15 MG CAP PO PRN (01:55)
[2016-10-27 05:15] LABS: Basophils # (auto) 0 uL; Basophils % (auto) 0.1 % (0.0-2.0); CONDITION Y; DEFINITIVE SEE PRINTOUT; Eosinophils # (auto) 0.1 uL; Eosinophils % (auto) 1.4 % (0.0-7.0); Hematocrit 28.6 % (36.0-46.0); Hemoglobin 9.4 g/dL (12.2-16.2); Lymphocytes # (auto) 0.5 uL; Lymphocytes % (auto) 12.3 % (10.0-50.0); Mean Corpuscular Volume 97.2 fL (80.0-100.0); Mean Platelet Volume 8.4 fL (7.4-10.4); Monocytes # (auto) 0.4 uL; Monocytes % (auto) 9.6 % (0.0-12.0); Neutrophils % (auto) 76.6 % (37.0-80.0); Platelet Count (auto) 101 10^3/uL (140-450); Red Cell Distribution Width 19.3 % (11.6-16.0); White Blood Cell 3.9 10^3/uL (4.4-10.8)
[2016-10-27 05:43] LABS: Albumin 2.6 g/dL (3.4-5.0); BUN/Creatinine Ratio 9.3; Calcium 7.7 mg/dL (8.5-10.1); Potassium 5.3 mmol/L (3.5-5.1)
[2016-10-27 05:52] LABS: Bilirubin, Total 0.4 mg/dL (0.2-1.0); Total Protein 5.9 g/dL (6.4-8.2)
[2016-10-27] MEDS: CLINDAMYCIN 600MG IV 50 ML IV SCH ×2 (06:12→16:20)
[2016-10-27] MEDS: InsuLIN REG 1unit/0.01ml Soln (100units/ml) SC SCH ×2 (06:18→11:30)
[2016-10-27] MEDS: ACCU-CHEK COMFORT CURVE STRIP VI SCH ×2 (06:18→11:51)
[2016-10-27] MEDS ORDERED: EPOETIN ALFA 10,000 UNIT/1 ML VIAL IV ONE (08:30)
[2016-10-27] MEDS: B-COMPLEX W/ C & FOLIC ACID(NEPHROVITE TAB) PO SCH (14:16)
[2016-10-27] MEDS: PANTOPRAZOLE 40 MG TAB PO SCH (14:16)
[2016-10-27] MEDS: cefTRIAXone 1GM/50ML D5W 50 ML IV SCH (14:16)
[2016-10-27] MEDS: BUMETANIDE 1 MG TAB PO SCH (14:17)
[2016-10-27] MEDS: ASPirin-EC 81 mg tab PO SCH (14:17)
[2016-10-27] MEDS: DIGOXIN 0.125 MG TAB PO SCH (14:17)
[2016-10-27] MEDS: ASCORBIC ACID 500 MG TAB PO SCH (14:18)
== END 2016-10-27 18:45 | disposition home or self-care (01) | DRG 167 ==
LOC: EDUNIT# 16:29 → ER 16:33 → TELE 16:34 → TELE-CENTR 21:39
PROVIDERS: ADMIT Internal Medicine; ATTEND Internal Medicine
PROC: 02H633Z Insertion of Infusion Device into Right Atrium, Percutaneous Approach (ICD-10-PCS; principal; 2016-10-21)
PROC: B5131ZA Fluoroscopy of Right Jugular Veins using Low Osmolar Contrast, Guidance (ICD-10-PCS; 2016-10-21)
PROC: 5A1D60Z (ICD-10-PCS; 2016-10-21)
PROC: 0JH63XZ Insertion of Tunneled Vascular Access Device into Chest Subcutaneous Tissue and Fascia, Percutaneous Approach (ICD-10-PCS; 2016-10-21)
PROC: B244ZZZ Ultrasonography of Right Heart (ICD-10-PCS; 2016-10-21)
DX: I13.2 Hypertensive heart and chronic kidney disease with heart failure and with stage 5 chronic kidney disease, or end stage renal disease (principal); N17.9 Acute kidney failure, unspecified; E44.0 Moderate protein-calorie malnutrition; E11.22 Type 2 diabetes mellitus with diabetic chronic kidney disease; J44.0 Chronic obstructive pulmonary disease with (acute) lower respiratory infection; J44.9 Chronic obstructive pulmonary disease, unspecified; N18.6 End stage renal disease; Z99.2 Dependence on renal dialysis; D63.1 Anemia in chronic kidney disease; E03.9 Hypothyroidism, unspecified; E11.65 Type 2 diabetes mellitus with hyperglycemia; Z68.27 Body mass index [BMI] 27.0-27.9, adult; G40.909 Epilepsy, unspecified, not intractable, without status epilepticus; H54.0 Blindness, both eyes; I25.2 Old myocardial infarction; I50.40 Unspecified combined systolic (congestive) and diastolic (congestive) heart failure; Z66 Do not resuscitate; Z82.1 Family history of blindness and visual loss; Z82.49 Family history of ischemic heart disease and other diseases of the circulatory system; Z83.3 Family history of diabetes mellitus; Z86.73 Personal history of transient ischemic attack (TIA), and cerebral infarction without residual deficits; Z88.0 Allergy status to penicillin; Z88.2 Allergy status to sulfonamides; Z88.8 Allergy status to other drugs, medicaments and biological substances; Z91.041 Radiographic dye allergy status; Z79.82 Long term (current) use of aspirin; Z71.89 Other specified counseling; Z80.9 Family history of malignant neoplasm, unspecified; N61.0 Mastitis without abscess; Z23 Encounter for immunization
CPT/HCPCS: 36415; 36600; 71010; 76937; 80053; 80061; 82550; 82805; 82962; 83036; 83735; 83880; 84439; 84443; 84481; 84484; 85025; 85610; 85652; 85730; 87040; 87081; 90935; 93005; 94640; 94761; 96374; 96375; J0690; J0696; J0885; J1642; J1815; J2250; J2405; J3490

== ENCOUNTER 2016-11-03 03:43 | Inpatient (IN) | payer MEDICAID ==
[~2016-11-03] VITALS: Ht 165.1 cm; Wt 81.5 kg
[2016-11-03 04:21] LABS: Basophils # (auto) 0 uL; Basophils % (auto) 0.4 % (0.0-2.0); CONDITION Y; DEFINITIVE SEE PRINTOUT; Eosinophils # (auto) 0.1 uL; Eosinophils % (auto) 1.1 % (0.0-7.0); Hematocrit 30.8 % (36.0-46.0); Lymphocytes # (auto) 0.6 uL; Lymphocytes % (auto) 11.1 % (10.0-50.0); Mean Corpuscular Hemoglobin 32.3 pg (28.0-32.0); Mean Corpuscular Hgb Conc. 32.5 g/dL (32.0-36.0); Mean Corpuscular Volume 99.5 fL (80.0-100.0); Mean Platelet Volume 7.7 fL (7.4-10.4); Monocytes # (auto) 0.5 uL; Monocytes % (auto) 8.8 % (0.0-12.0); Neutrophils # (auto) 4.5 uL; Neutrophils % (auto) 78.6 % (37.0-80.0); Platelet Count (auto) 143 10^3/uL (140-450); White Blood Cell 5.8 10^3/uL (4.4-10.8)
[2016-11-03 04:43] LABS: Albumin 2.9 g/dL (3.4-5.0); BUN/Creatinine Ratio 9.3; Calcium 7.9 mg/dL (8.5-10.1); Magnesium 1.9 mg/dL (1.6-2.6); Partial Thromboplastin Time 26.4 sec (22.64-33.71); Potassium 4.4 mmol/L (3.5-5.1)
[2016-11-03 04:48] LABS: Bilirubin, Total 0.5 mg/dL (0.2-1.0); Total Protein 7.1 g/dL (6.4-8.2)
[2016-11-03 04:51] LABS: B-Type Natriuretic Peptide > 5000.00 pg/mL (0-100)
[2016-11-03 04:55] LABS: Temperature: 23.1 C (20.0-25.0)
[2016-11-03 05:40] LABS: Platelet Estimate Adequate
[2016-11-03 05:41] LABS: Anisocytosis Moderate; Ovalocytes FEW
[2016-11-03 06:49] LABS: INR 1.15 (0.9-1.15)
[2016-11-03 06:53] LABS: Prothrombin Time 12.5 sec (9.37-12.3)
[2016-11-03] MEDS ORDERED: FUROSEMIDE 40 MG/4 ML VIAL IV ONE (07:45)
[2016-11-03] MEDS ORDERED: ONDANSETRON HCL 4 MG/2 ML VIAL IV ONE (11:00)
[2016-11-03] MEDS ORDERED: MORPHINE SULF INJ 2 MG/ML SYRINGE 1ML IV ONE (11:00)
[2016-11-03] MEDS ORDERED: MORPHINE SULF INJ 2 MG/ML SYRINGE 1ML IV PRN (11:15)
[2016-11-03] MEDS ORDERED: TEMAZEPAM 15 MG CAP PO PRN (11:15)
[2016-11-03] MEDS ORDERED: DOCUSATE SOD 100 MG CAP PO PRN (11:15)
[2016-11-03] MEDS ORDERED: FAMOTIDINE 20 MG TAB PO SCH ×2 (11:30→22:00)
[2016-11-03] MEDS ORDERED: LORazepam 2MG/ML-1ML VIAL IV PRN (11:30)
[2016-11-03] MEDS ORDERED: DIGOXIN 0.125 MG TAB PO ONE (11:30)
[2016-11-03] MEDS: InsuLIN REG 1unit/0.01ml Soln (100units/ml) SC SCH ×3 (11:30→21:19)
[2016-11-03] MEDS ORDERED: BUMETANIDE 1 MG TAB PO ONE (11:30)
[2016-11-03] MEDS ORDERED: SPIRONOLACTONE 25 MG TAB PO ONE (11:30)
[2016-11-03] MEDS ORDERED: FAMOTIDINE 20 MG TAB PO ONE (11:30)
[2016-11-03] MEDS ORDERED: DEXTROSE (50%) 50ML SYRG IV PRN (11:30)
[2016-11-03] MEDS: BENAZEPRIL HCL 10 MG TAB PO SCH (11:45)
[2016-11-03] MEDS: ACCU-CHEK COMFORT CURVE STRIP VI SCH ×3 (11:47→21:19)
[2016-11-03] MEDS: Boost Glucose Control 8 Ounces PO SCH ×3 (12:00→21:18)
[2016-11-03] MEDS: ASPirin-EC 81 mg tab PO SCH (12:02)
[2016-11-03] MEDS: SODIUM CHLOR 0.9% PF (SALINE LOCK) 10ML VIAL IV SCH ×2 (14:07→21:18)
[2016-11-03] MEDS: MORPHINE SULF INJ 2 MG/ML SYRINGE 1ML IV PRN ×2 (18:12→23:22)
[2016-11-03] MEDS: ONDANSETRON HCL 4 MG/2 ML VIAL IV PRN ×2 (18:12→23:22)
[2016-11-03] MEDS: ATORVASTATIN 20 MG TAB PO SCH (21:19)
[2016-11-03 22:10] VITALS: BP 106/61
[2016-11-03 23:20] VITALS: BP 106/61
[2016-11-04 04:33] VITALS: BP 99/58
[2016-11-04 06:20] LABS: Basophils # (auto) 0 uL; Basophils % (auto) 0.6 % (0.0-2.0); CONDITION Y; DEFINITIVE SEE PRINTOUT; Eosinophils # (auto) 0.1 uL; Eosinophils % (auto) 1.3 % (0.0-7.0); Hematocrit 32.2 % (36.0-46.0); Hemoglobin 10.3 g/dL (12.2-16.2); Lymphocytes # (auto) 0.7 uL; Lymphocytes % (auto) 15.1 % (10.0-50.0); Mean Corpuscular Hemoglobin 32.4 pg (28.0-32.0); Mean Corpuscular Hgb Conc. 31.9 g/dL (32.0-36.0); Mean Corpuscular Volume 101.5 fL (80.0-100.0); Mean Platelet Volume 7.7 fL (7.4-10.4); Monocytes # (auto) 0.4 uL; Monocytes % (auto) 8.1 % (0.0-12.0); Neutrophils # (auto) 3.3 uL; Neutrophils % (auto) 74.9 % (37.0-80.0); Platelet Count (auto) 131 10^3/uL (140-450); White Blood Cell 4.4 10^3/uL (4.4-10.8)
[2016-11-04 06:30] LABS: BUN/Creatinine Ratio 10.2; Bilirubin, Total 0.4 mg/dL (0.2-1.0); Calcium 8.5 mg/dL (8.5-10.1)
[2016-11-04 06:37] LABS: Red Cell Distribution Width 20.7 % (11.6-16.0)
[2016-11-04] MEDS: ACCU-CHEK COMFORT CURVE STRIP VI SCH ×4 (06:43→22:18)
[2016-11-04] MEDS: InsuLIN REG 1unit/0.01ml Soln (100units/ml) SC SCH ×4 (06:43→22:18)
[2016-11-04] MEDS: Boost Glucose Control 8 Ounces PO SCH ×4 (06:43→22:19)
[2016-11-04] MEDS: SODIUM CHLOR 0.9% PF (SALINE LOCK) 10ML VIAL IV SCH ×3 (06:44→22:20)
[2016-11-04 08:00] VITALS: BP 90/54
[2016-11-04 09:00] VITALS: BP 101/63
[2016-11-04] MEDS: BENAZEPRIL HCL 10 MG TAB PO SCH (10:00)
[2016-11-04] MEDS: BUMETANIDE 1 MG TAB PO SCH (10:00)
[2016-11-04] MEDS: SPIRONOLACTONE 25 MG TAB PO SCH (10:00)
[2016-11-04 10:22] LABS: Platelet Estimate Decreased
[2016-11-04 10:30] LABS: Anisocytosis Moderate; Macrocytosis Slight; Ovalocytes FEW
[2016-11-04 10:33] LABS: Tear Drop Cells FEW
[2016-11-04] MEDS ORDERED: EPOETIN ALFA 10,000 UNIT/1 ML VIAL IV ONE (11:00)
[2016-11-04] MEDS ORDERED: SODIUM CHL 0.9% 1000 ML BAG XX ONE (11:00)
[2016-11-04 12:30] VITALS: BP 90/54
[2016-11-04] MEDS ORDERED: MORPHINE SULFATE 4 MG/ML SYRG IV PRN (14:27)
[2016-11-04] MEDS: ASPirin-EC 81 mg tab PO SCH (16:33)
[2016-11-04] MEDS: DIGOXIN 0.125 MG TAB PO SCH (16:34)
[2016-11-04] MEDS: MULTIPLE VITAMIN TAB PO SCH (16:34)
[2016-11-04] MEDS: FAMOTIDINE 20 MG TAB PO SCH (16:34)
[2016-11-04 16:40] VITALS: BP 98/50
[2016-11-04] MEDS: MORPHINE SULF INJ 2 MG/ML SYRINGE 1ML IV PRN (16:50)
[2016-11-04 21:30] VITALS: BP 111/57
[2016-11-04] MEDS: ATORVASTATIN 20 MG TAB PO SCH (22:18)
[2016-11-05 05:00] VITALS: BP 96/51
[2016-11-05] MEDS: MORPHINE SULF INJ 2 MG/ML SYRINGE 1ML IV PRN (05:54)
[2016-11-05] MEDS: SODIUM CHLOR 0.9% PF (SALINE LOCK) 10ML VIAL IV SCH ×3 (06:35→22:40)
[2016-11-05] MEDS: Boost Glucose Control 8 Ounces PO SCH ×4 (06:35→22:53)
[2016-11-05] MEDS: ACCU-CHEK COMFORT CURVE STRIP VI SCH ×4 (06:36→22:00)
[2016-11-05] MEDS: InsuLIN REG 1unit/0.01ml Soln (100units/ml) SC SCH ×4 (06:36→22:53)
[2016-11-05 09:00] VITALS: BP 86/48
[2016-11-05] MEDS: BUMETANIDE 1 MG TAB PO SCH (09:58)
[2016-11-05] MEDS: SPIRONOLACTONE 25 MG TAB PO SCH (09:58)
[2016-11-05] MEDS: MULTIPLE VITAMIN TAB PO SCH (09:58)
[2016-11-05] MEDS: DIGOXIN 0.125 MG TAB PO SCH (09:59)
[2016-11-05] MEDS: ASPirin-EC 81 mg tab PO SCH (09:59)
[2016-11-05] MEDS: BENAZEPRIL HCL 10 MG TAB PO SCH (09:59)
[2016-11-05] MEDS: FAMOTIDINE 20 MG TAB PO SCH (09:59)
[2016-11-05] MEDS: MORPHINE SULFATE 4 MG/ML SYRG IV PRN ×2 (10:00→15:21)
[2016-11-05 10:25] LABS: Basophils # (auto) 0 uL; Basophils % (auto) 0.1 % (0.0-2.0); CONDITION Y; DEFINITIVE SEE PRINTOUT; Eosinophils # (auto) 0.1 uL; Eosinophils % (auto) 1.8 % (0.0-7.0); Hematocrit 29.4 % (36.0-46.0); Hemoglobin 9.4 g/dL (12.2-16.2); Lymphocytes # (auto) 0.6 uL; Mean Corpuscular Hemoglobin 32.7 pg (28.0-32.0); Mean Corpuscular Hgb Conc. 31.9 g/dL (32.0-36.0); Mean Corpuscular Volume 102.3 fL (80.0-100.0); Mean Platelet Volume 7.7 fL (7.4-10.4); Monocytes # (auto) 0.4 uL; Monocytes % (auto) 12.5 % (0.0-12.0); Neutrophils # (auto) 2.3 uL; Neutrophils % (auto) 68.6 % (37.0-80.0); Platelet Count (auto) 110 10^3/uL (140-450); White Blood Cell 3.4 10^3/uL (4.4-10.8)
[2016-11-05 10:30] LABS: Albumin 2.8 g/dL (3.4-5.0); BUN/Creatinine Ratio 10.2; Calcium 7.9 mg/dL (8.5-10.1); Potassium 4.3 mmol/L (3.5-5.1)
[2016-11-05 10:31] LABS: Red Cell Distribution Width 20.8 % (11.6-16.0)
[2016-11-05 10:33] LABS: Bilirubin, Total 0.4 mg/dL (0.2-1.0); Total Protein 6.5 g/dL (6.4-8.2)
[2016-11-05 13:00] VITALS: BP 112/58
[2016-11-05 14:14] LABS: Platelet Estimate Decreased
[2016-11-05 14:17] LABS: Anisocytosis Slight; Macrocytosis Slight
[2016-11-05] MEDS: ONDANSETRON HCL 4 MG/2 ML VIAL IV PRN (16:31)
[2016-11-05 17:21] VITALS: BP 96/57
[2016-11-05 21:54] VITALS: BP 96/58
[2016-11-05] MEDS: ATORVASTATIN 20 MG TAB PO SCH (22:40)
[2016-11-06 05:00] VITALS: BP 100/62
[2016-11-06] MEDS: SODIUM CHLOR 0.9% PF (SALINE LOCK) 10ML VIAL IV SCH ×2 (06:35→14:00)
[2016-11-06] MEDS: Boost Glucose Control 8 Ounces PO SCH ×2 (06:36→12:00)
[2016-11-06] MEDS: InsuLIN REG 1unit/0.01ml Soln (100units/ml) SC SCH ×2 (06:36→11:30)
[2016-11-06] MEDS: ACCU-CHEK COMFORT CURVE STRIP VI SCH ×2 (06:36→11:51)
[2016-11-06] MEDS: MORPHINE SULFATE 4 MG/ML SYRG IV PRN (07:09)
[2016-11-06] MEDS: ONDANSETRON HCL 4 MG/2 ML VIAL IV PRN (08:15)
[2016-11-06 08:47] VITALS: BP 87/47
[2016-11-06 09:00] VITALS: BP_SYST 87; BP_SYST 98; BP_DIAS 47; BP_DIAS 61
[2016-11-06] MEDS: FAMOTIDINE 20 MG TAB PO SCH (09:31)
[2016-11-06] MEDS: ASPirin-EC 81 mg tab PO SCH (09:31)
[2016-11-06] MEDS: DIGOXIN 0.125 MG TAB PO SCH (09:31)
[2016-11-06] MEDS: MULTIPLE VITAMIN TAB PO SCH (09:31)
[2016-11-06] MEDS: BUMETANIDE 1 MG TAB PO SCH (09:32)
[2016-11-06] MEDS: BENAZEPRIL HCL 10 MG TAB PO SCH (09:32)
[2016-11-06] MEDS: SPIRONOLACTONE 25 MG TAB PO SCH (09:32)
== END 2016-11-06 16:05 | disposition home or self-care (01) | DRG 194 ==
LOC: EDUNIT# 03:43 → ER 03:43 → EDBD 03:43 → TELE 03:44 → TELE-CENTR 22:10
PROVIDERS: ADMIT Internal Medicine; ATTEND Internal Medicine
PROC: 5A1D00Z (ICD-10-PCS; principal; 2016-11-03)
DX: I13.2 Hypertensive heart and chronic kidney disease with heart failure and with stage 5 chronic kidney disease, or end stage renal disease (principal); E43 Unspecified severe protein-calorie malnutrition; N18.6 End stage renal disease; I50.43 Acute on chronic combined systolic (congestive) and diastolic (congestive) heart failure; Z99.2 Dependence on renal dialysis; D63.8 Anemia in other chronic diseases classified elsewhere; G40.909 Epilepsy, unspecified, not intractable, without status epilepticus; E11.22 Type 2 diabetes mellitus with diabetic chronic kidney disease; E78.5 Hyperlipidemia, unspecified; I25.10 Atherosclerotic heart disease of native coronary artery without angina pectoris; I25.2 Old myocardial infarction; J44.9 Chronic obstructive pulmonary disease, unspecified; Z82.1 Family history of blindness and visual loss; Z82.49 Family history of ischemic heart disease and other diseases of the circulatory system; Z83.3 Family history of diabetes mellitus; Z86.73 Personal history of transient ischemic attack (TIA), and cerebral infarction without residual deficits; Z87.891 Personal history of nicotine dependence; Z71.89 Other specified counseling
CPT/HCPCS: 36415; 71010; 80053; 82962; 83036; 83735; 83880; 84443; 84484; 85025; 85610; 85730; 87081; 87493; 90935; 93005; 96374; 96375; J0885; J1642; J1815; J2405